=== PATIENT | female | born 1965 | race Caucasian/White ===

== ENCOUNTER 2018-12-15 12:57 | Emergency (ER) | payer OTHER ==
[2018-12-15 13:03] VITALS: RESP 18
--- NOTE | 2018-12-15 13:19 | ED ---
Extremity Problem HPI - General Chief complaint: Extremity Problem,Nontraumatic Stated complaint: Leg pain Time Seen by Provider: 12/15/18 13:05 Source: patient Mode of arrival: ambulatory Limitations: no limitations - History of Present Illness Initial comments: 53-year-old female presenting today for bilateral leg pain. Patient states that since she started a new position and sitting more often than she has had bilateral leg pain. She states that increases with walking. She states she feels like she is sitting too long and this is causing muscle pain when she does walk. She states as a sharp shooting pain from the cast bilaterally to the mid thigh. Patient denies any leg swelling stenting numbness tingling loss sensation or pallor of the extremity. Patient denies diabetes. Patient denies any loss sensation. Patient denies any limitations in range of motion at the hips, knees or ankles--patient denies any recent falls or direct trauma. Patient has any erythema or rashes or lesions. Patient denies fever chills or night sweats. Remaining review of systems negative upon arrival patient appears well no signs acute distress. Patient took Advil prior to arrival for pain management. - Related Data Allergies Allergy/AdvReac Type Severity Reaction Status Date / Time citalopram [From Celexa] Allergy Rash/Hives Verified 12/15/18 13:03 quetiapine [From Seroquel] Allergy Rash/Hives Verified 12/15/18 13:03 Review of Systems ROS Statement: Those systems with pertinent positive or pertinent negative responses have been documented in the HPI. ROS Other: All systems not noted in ROS Statement are negative. Past Medical History Past Medical History: No Reported History History of Any Multi-Drug Resistant Organisms: MRSA Date of last positivie culture/infection: 2017 MDRO Source:: back Past Surgical History: Appendectomy, Section Past Psychological History: Anxiety Smoking Status: Never smoker Past Alcohol Use History: None Reported Past Drug Use History: None Reported General Exam - General Exam Comments Initial Comments: General: The patient is awake and alert, in no distress, and does not appear acutely ill. Eye: Pupils are equal, round and reactive to light, extra-ocular movements are intact. No nystagmus. There is normal conjunctiva bilaterally. No signs of icterus. Ears, nose, mouth and throat: There are moist mucous membranes and no oral lesions. Neck: The neck is supple, there is no tenderness or JVD. Cardiovascular: There is a regular rate and rhythm. No murmur, rub or gallop is appreciated. Respiratory: Lungs are clear to auscultation, respirations are non-labored, breath sounds are equal. No wheezes, stridor, rales, or rhonchi. Gastrointestinal: Soft, non-distended, non-tender abdomen without masses or organomegaly noted. There is no rebound or guarding present. No CVA tenderness. Bowel sounds are unremarkable. Musculoskeletal: Normal ROM, no tenderness hips and knees ankles bilaterally. Strength 5/5. Sensation intact of the lower extremities equal comparison bilaterally. DP pulses equal bilaterally 2+. No lower extremity edema. Neurological: A&O x 3. CN II-XII intact, There are no obvious motor or sensory deficits. Coordination appears grossly intact. Speech is normal. Skin: Skin is warm and dry and no rashes or lesions are noted. She has some tenderness to palpation of the posterior calf bilaterally. (-) Homans. Psychiatric: Cooperative, appropriate mood & affect, normal judgment. Limitations: no limitations Course Vital Signs 12/15/18 13:00 Temperature 98.3 F Pulse Rate 78 Respiratory 18 Rate Blood Pressure 155/85 O2 Sat by Pulse 99 Oximetry Medical Decision Making - Medical Decision Making 53-year-old female presenting for bilateral leg pain from the cast the thighs posteriorly. There is no evidence of swelling. Negative Homans. Patient does have some tenderness along the calf. There is no evidence of masses. There is no skin abnormalities. No limitations of the joints. Patient denies any trauma. Patient denies history of DVT. Patient denies history of cancer. Patient states she has been sitting more unusual and she states the pain occurs when she is active. At this time it seems as though pain is muscular related however ultrasounds were obtained to rule out DVT. Ultrasounds were negative for deep venous thrombosis. Did recommend patient follow-up with her primary care provider she develops any lower extremity swelling or pain persists she may repeat ultrasound in 2 weeks. Patient is to continue Advil and Tylenol outpatient for pain management. Patient is agreeable care plan discharge this time. I discussed the case attending provider Dr. Garcia prior to discharge, agreeable with plan. Disposition Clinical Impression: Bilateral leg pain Disposition: HOME SELF-CARE Condition: Good Instructions (If sedation given, give patient instructions): Leg Pain (ED) Additional Instructions: Please use medication as discussed. Please follow-up with family doctor in the next 2 days.. Please return to emergency room if the symptoms increase or worsen or for any other concerns. Is patient prescribed a controlled substance at d/c from ED?: No Referrals: Oh Mchugh DO [Primary Care Provider] - 1-2 days Time of Disposition: 14:39
--- NOTE | 2018-12-15 14:19 | US ---
EXAMINATION TYPE: US venous doppler duplex LE DATE OF EXAM: 12/15/2018 1:36 PM COMPARISON: NONE CLINICAL HISTORY: Pain. SIDE PERFORMED: Bilateral TECHNIQUE: The lower extremity deep venous system is examined utilizing real time linear array sonog carlos with graded compression, doppler sonography and color-flow sonography. VESSELS IMAGED: External Iliac Vein (EIV) Common Femoral Vein Deep Femoral Vein Greater Saphenous Vein * Femoral Vein Popliteal Vein Small Saphenous Vein * Proximal Calf Veins (* superficial vessels) Grayscale, color doppler, spectral doppler imaging performed of the deep veins of the lower extremiti es. There is normal flow, compressibility, vascular waveforms. Right Leg: Negative for DVT Left Leg: Negative for DVT IMPRESSION: No deep venous thrombosis is seen within either bilateral lower extremity.
[2018-12-15 14:59] VITALS: BP 133/79; PULSE 73; TEMP 98.2
== END 2018-12-15 14:57 | disposition home or self-care (01) ==
LOC: EC 12:57
DX: M79.604 Pain in right leg (principal); M79.605 Pain in left leg; M79.651 Pain in right thigh; M79.652 Pain in left thigh; Z88.8 Allergy status to other drugs, medicaments and biological substances; Z86.14 Personal history of Methicillin resistant Staphylococcus aureus infection
CPT/HCPCS: 93970; 99283

== ENCOUNTER → 2019-03-15 | Outpatient (CLI) | payer OTHER ==
--- NOTE | 2019-03-15 18:10 | MR ---
EXAMINATION TYPE: MR lumbar spine wo con DATE OF EXAM: 03/15/2019 COMPARISON: None HISTORY: Low back pain TECHNIQUE: Multiplanar, multisequence images of the lumbar spine were acquired. L1-L2: Minimal posterior broad-based disc bulge causes minimal anterior mass effect on the thecal sac . No significant central stenosis or foraminal encroachment. L2-L3: Normal disc appearance without desiccation. No herniation, protrusion or disc bulging. No ca nal stenosis is present. Foramina are patent bilaterally. L3-L4: There is facet arthropathy with hypertrophy ligamentum flavum causing some posterior lateral m ass effect on the thecal sac. No significant foraminal encroachment or disc herniation, no central st enosis. L4-L5: Hypertrophic changes of the facets causes posterior lateral mass effect on the thecal sac, thi s results in a trefoil appearance of the thecal sac, there is associated circumferential disc bulge c ausing minimal anterior mass effect on the thecal sac, circumferential extension of disc as well as l isthesis contributes to cause some foraminal encroachment. L5-S1: Posterior broad-based disc bulge contacts anterior thecal sac and possibly the proximal S1 ner ve roots. No significant foraminal encroachment or central stenosis. Facet arthropathy changes presen t. Lumbar segments are intact. No paraspinal masses are identified. Conus medullaris has a normal appe arance. Minimal anterolisthesis grade 1 L4-5. Loss of disc height signal at intervertebral levels johana ecially L4-5, L1-2 with associated endplate spondylosis, endplate marrow signal changes present. Mild spinal curvature. IMPRESSION: Multilevel facet arthropathy. Mild central stenosis noted at L4-5 as described.
== END | disposition home or self-care (01) ==
LOC: RADMRIMAIN 17:01
PROVIDERS: ATTEND Family Medicine
DX: M48.061 Spinal stenosis, lumbar region without neurogenic claudication (principal); M46.96 Unspecified inflammatory spondylopathy, lumbar region
CPT/HCPCS: 72148

== ENCOUNTER → 2020-01-09 | Outpatient (CLI) | payer OTHER ==
[2020-01-09 12:40] LABS: Appearance,Urine Clear (Clear); Bilirubin,Urine Negative (Negative); Blood,Urine Negative (Negative); Color,Urine Yellow; Glucose,Urine (UA) Negative (Negative); Ketones,Urine Negative (Negative); Leukocyte Esterase,Urine Small (Negative); Mucus,Urine Rare /hpf; Nitrite,Urine Negative (Negative); Protein,Urine Negative (Negative); RBC,Urine 1 /hpf (0-5); Specific Gravity,Urine 1.013 (1.001-1.035); Squamous Epithelial Cell,Urine 1 /hpf (0-4); Urobilinogen,Urine <2.0 mg/dL (<2.0); WBC,Urine 1 /hpf (0-5)
[2020-01-09 12:48] LABS: Basophils % (A) 0 %; Eosinophils # (A) 0.2 k/uL (0-0.7); Eosinophils % (A) 2 %; HGB 14.7 gm/dL (11.4-16.0); Lymphocytes # (A) 1.8 k/uL (1.0-4.8); Lymphocytes % (A) 20 %; MCH 29.1 pg (25.0-35.0); MCHC 31.9 g/dL (31.0-37.0); MCV 91.2 fL (80.0-100.0); Mean Platelet Volume 7.1; Monocytes # (A) 0.5 k/uL (0-1.0); Monocytes % (A) 5 %; Neutrophils # (A) 6.6 k/uL (1.3-7.7); Neutrophils % (A) 71 %; Platelet Count 214 k/uL (150-450); RBC 5.04 m/uL (3.80-5.40); RDW 12.4 % (11.5-15.5); WBC 9.3 k/uL (3.8-10.6)
[2020-01-09 14:47] LABS: Erythrocyte Sedimentation Rate 4 mm/hr (0-20)
[2020-01-09 20:05] LABS: Streptolysin O Ab(ASO) 124 IU/mL (0-200)
[2020-01-09 20:10] LABS: Protein, Total 6.3 g/dL (6.2-8.2)
[2020-01-09 21:24] LABS: ALT 44 U/L (8-44); AST 41 U/L (13-35); African American GFR (CKD) 73.4 (60.0-200.0); Albumin/Globulin Ratio 1.91 (1.60-3.17); Alkaline Phosphatase 80 U/L (41-126); C Reactive Protein 0.5 mg/dL (0.0-0.8); Calcium 9.4 mg/dL (8.7-10.3); Carbon Dioxide 30.3 mmol/L (21.6-31.8); Chloride 108 mmol/L (96-109); Creatine Kinase 472 U/L (26-186); Globulin 2.2 g/dL (1.6-3.3); Glucose 92 mg/dL (70-110); LDH 302 U/L (120-246); Non-African American GFR(CKD) 63.4 (60.0-200.0); Phosphorus 3.8 mg/dL (2.4-5.1); Potassium 4.3 mmol/L (3.5-5.5); Rheumatoid Factor, Qnt 10 IU/mL (0-15); Sodium 143 mmol/L (135-145); Total Bilirubin 0.6 mg/dL (0.3-1.2); Total Protein 6.4 g/dL (6.2-8.2)
[2020-01-09 21:34] LABS: Hemoglobin A1C 5.8 % (4.0-6.0)
[2020-01-09 23:31] LABS: Cyclic Citrull Pep IgG Unit 0.8 U/mL; Cyclic Citrullinated Pep IgG NEGATIVE (NEGATIVE)
[2020-01-10 09:55] LABS: Angiotensin-1 Converting Enz. 33 U/L (8-52)
[2020-01-10 12:11] LABS: HLA B27 NEGATIVE
[2020-01-10 12:51] LABS: Albumin 3.75 g/dL (3.80-4.90)
[2020-01-10 13:51] LABS: Vitamin D, 1, 25-Dihydroxy 43 pg/mL (20 - 79)
[2020-01-13 11:30] LABS: Vit B1(Thiamine) 66 ug/L (38-122)
== END | disposition home or self-care (01) ==
LOC: LABWHC1 11:56
PROVIDERS: ATTEND Physical Medicine & Rehabilitation
DX: M51.26 Other intervertebral disc displacement, lumbar region (principal); M43.16 Spondylolisthesis, lumbar region; M47.816 Spondylosis without myelopathy or radiculopathy, lumbar region; M51.36 Other intervertebral disc degeneration, lumbar region; M62.830 Muscle spasm of back; R20.2 Paresthesia of skin
CPT/HCPCS: 36415; 80053; 81001; 82164; 82306; 82310; 82550; 82553; 82607; 82652; 83036; 83516; 83520; 83615; 83970; 84100; 84165; 84207; 84425; 84439; 84443; 84550; 85025; 85652; 86038; 86060; 86140; 86200; 86235; 86431; 86618; 86812; 87522

== ENCOUNTER → 2020-08-08 | Outpatient (CLI) | payer OTHER ==
--- NOTE | 2020-08-08 10:59 | MR ---
EXAMINATION TYPE: MRI brain without contrast DATE OF EXAM: 08/08/2020 COMPARISON: None HISTORY: BL Numbness and weakness TECHNIQUE: Multiplanar, multisequence images of the brain and brainstem is performed without contrast. FINDINGS: Diffusion weighted images demonstrate no evidence of a recent infarct or other diffusion ab normality. There is no extra-axial fluid collection or significant white matter signal abnormality. The ventricular system and cisternal spaces are normal in size and appearance. The brain volume is age appropriate. Midline structures demonstrate normal morphology. The craniocervical junction appears within normal limits. Post contrast images demonstrate no abnormal enhancement. The dural venous sinuses appear pa tent. The visualized sinuses are clear and the globes are intact. IMPRESSION: No significant abnormality seen.
== END | disposition home or self-care (01) ==
LOC: RADMRIMAIN 09:12
PROVIDERS: ATTEND Family Medicine
DX: R53.1 Weakness (principal); R20.2 Paresthesia of skin
CPT/HCPCS: 70553; A9585

== ENCOUNTER 2020-11-16 02:44 | Emergency (ER) | payer OTHER ==
--- NOTE | 2020-11-16 03:15 | ED ---
Extremity Problem HPI - General Chief complaint: Extremity Problem,Nontraumatic Stated complaint: RT arm pain Time Seen by Provider: 11/16/20 03:02 Source: patient Mode of arrival: ambulatory Limitations: no limitations - History of Present Illness MD Complaint: joint pain Onset/Timin -: hour(s) Location: right, upper extremity (Shoulder) History of Same: No -: Yes myalgia, Yes arthralgia Radiation: none Quality: aching Consistency: constant Improves with: nothing Worsens with: other (Movement) Associated Symptoms: denies other symptoms - Related Data Home Medications Medication Instructions Recorded Confirmed DULoxetine HCL [Cymbalta] 30 mg PO HS 11/16/20 11/16/20 Diclofenac Sodium [Voltaren] 25 mg PO BID 11/16/20 11/16/20 Pregabalin [Lyrica] 75 mg PO BID 11/16/20 11/16/20 Previous Rx's Medication Instructions Recorded HYDROcodone/APAP 5-325MG [[place] 1 tab PO Q4HR PRN 3 Days #18 tab 11/16/20 5-325] Allergies Allergy/AdvReac Type Severity Reaction Status Date / Time citalopram [From Celexa] Allergy Rash/Hives Verified 12/15/18 13:03 quetiapine [From Seroquel] Allergy Rash/Hives Verified 12/15/18 13:03 Sulfa (Sulfonamide Allergy Rash/Hives Verified 11/16/20 02:52 Antibiotics) Review of Systems ROS Statement: Those systems with pertinent positive or pertinent negative responses have been documented in the HPI. ROS Other: All systems not noted in ROS Statement are negative. Constitutional: Denies: fever, chills Respiratory: Denies: cough, dyspnea Cardiovascular: Denies: chest pain, palpitations Gastrointestinal: Denies: abdominal pain, nausea, vomiting Musculoskeletal: Reports: as per HPI, arthralgia. Denies: back pain Skin: Denies: rash Neurological: Denies: weakness, numbness, paresthesias Past Medical History Past Medical History: No Reported History Additional Past Medical History / Comment(s): lower back pain, bulging disc to back History of Any Multi-Drug Resistant Organisms: MRSA Date of last positivie culture/infection: 2017 MDRO Source:: back Past Surgical History: Appendectomy, Section Past Psychological History: Anxiety Smoking Status: Never smoker Past Alcohol Use History: None Reported Past Drug Use History: None Reported General Exam Limitations: no limitations General appearance: alert, in no apparent distress Head exam: Present: atraumatic, normocephalic Eye exam: Present: normal appearance Neck exam: Present: normal inspection, full ROM. Absent: tenderness, meningismus Cardiovascular Exam: Present: other (Right radial and ulnar pulses are normal in strength. Normal capillary refill) Extremities exam: Present: normal inspection Right Shoulder Exam: Present: tenderness. Absent: full ROM, swelling, abrasion, laceration, ecchymosis, deformity, crepitus, dislocation, erythema Upper Arm exam: Present: normal inspection, full ROM. Absent: tenderness, swelling Elbow exam: Present: normal inspection, full ROM. Absent: tenderness, swelling Forearm Wrist exam: Present: normal inspection, full ROM. Absent: tenderness, swelling Hand Wrist exam: Present: normal inspection, full ROM. Absent: tenderness, swelling Neuro motor exam: Present: wrist extension intact, thumb opposition intact, thumb IP flexion intact, thumb adduction intact, fingers 2-5 abduction intact Neurosensory exam: Present: 2-point discrimination, radial nerve intact, ulnar nerve intact, median nerve intact Vascular: Present: normal capillary refill. Absent: vascular compromise, pulse deficit radial art, pulse deficit ulnar art Back exam: Present: normal inspection. Absent: paraspinal tenderness, vertebral tenderness Neurological exam: Present: alert. Absent: motor sensory deficit Skin exam: Present: warm, dry, intact, normal color. Absent: rash Course Vital Signs 11/16/20 02:47 Temperature 97.7 F Pulse Rate 91 Respiratory 18 Rate Blood Pressure 152/100 O2 Sat by Pulse 98 Oximetry Disposition Clinical Impression: Shoulder pain Disposition: HOME SELF-CARE Condition: Good Instructions (If sedation given, give patient instructions): Shoulder Pain (ED) Prescriptions: HYDROcodone/APAP 5-325MG [[place] 5-325] 1 tab PO Q4HR PRN 3 Days #18 tab PRN Reason: Pain Is patient prescribed a controlled substance at d/c from ED?: Yes When asked, does pt state using other controlled substances?: No If prescribed controlled substance>3 days was MAPS reviewed?: Prescribed <3 Days If opioid is for acute pain is fill amount 7 days or less?: Yes If Rx opioid, was Start Talking consent form obtained?: Yes Referrals: Oh Mchugh DO [Primary Care Provider] - 1-2 days Donnie Gaines MD [STAFF PHYSICIAN] - 1-2 days
--- NOTE | 2020-11-16 03:46 | XR ---
EXAM: XR Right Shoulder Complete, 2 or More Views CLINICAL HISTORY: Right shoulder pain. TECHNIQUE: Two or more views of the right shoulder. COMPARISON: No previous studies. FINDINGS: Bones/joints: Mild hypertrophic changes right acromial clavicular joint. Moderate osteoarthritic changes about the right shoulder joint. Regional ribs and soft tissues are unremarkable. Scapula is unremarkable. No acute fracture. No dislocation. Soft tissues: Linear calcification near the insertion point of the rotator cuff tendon. IMPRESSION: 1. Osteoarthritic and degenerative changes. 2. Findings suggestive of possible calcific tendinopathy of the rotator cuff tendon. 3. Magnetic resonance imaging of the right shoulder joint is suggested for further assessment of the rotator cuff tendon.
[2020-11-16] MEDS ORDERED: IBUPROFEN 400 MG TAB PO STA (04:12)
[2020-11-16] MEDS ORDERED: HYDROcodone/APAP 5-325MG 1 EACH TAB PO STA (04:12)
[2020-11-16 05:35] VITALS: BP 148/88; PULSE 78; RESP 15; TEMP 97.8
== END 2020-11-16 05:30 | disposition home or self-care (01) ==
LOC: EC 02:44
DX: M25.511 Pain in right shoulder (principal); F41.9 Anxiety disorder, unspecified; Z90.49 Acquired absence of other specified parts of digestive tract
CPT/HCPCS: 99283

== ENCOUNTER 2021-03-17 15:31 | Observation (INO) | payer OTHER ==
--- NOTE | 2021-03-17 16:26 | ED ---
Extremity Problem HPI - General Chief complaint: Extremity Problem,Nontraumatic Stated complaint: legs went numb Time Seen by Provider: 03/17/21 16:25 Source: patient Mode of arrival: wheelchair Limitations: no limitations - History of Present Illness Initial comments: Maria D is a 56 her old female with a history of chronic back pain who has followed with her primary care and been evaluated in the past with CT scans and MRIs. Patient reports that today she is caring for grandchildren. She attempted to move a cinder block, she didn't hear any popping or cracking or legs but after doing that she had worsening pain in her back and radiation down both legs. Patient reports her legs feel somewhat numb but are also painful. She states that she can't walk secondary to the pain. This is worse than her baseline pain in his acute nature. She has no saddle paresthesias, she's not had any urinary or bowel incontinence or attention. She does feel that she needs urinary now but was holding a because she is in the exam room. - Related Data Home Medications Medication Instructions Recorded Confirmed DULoxetine HCL [Cymbalta] 30 mg PO HS 11/16/20 11/16/20 Diclofenac Sodium [Voltaren] 25 mg PO BID 11/16/20 11/16/20 Pregabalin [Lyrica] 75 mg PO BID 11/16/20 11/16/20 Previous Rx's Medication Instructions Recorded HYDROcodone/APAP 5-325MG [[place] 1 tab PO Q4HR PRN 3 Days #18 tab 11/16/20 5-325] Allergies Allergy/AdvReac Type Severity Reaction Status Date / Time citalopram [From Celexa] Allergy Rash/Hives Verified 03/17/21 16:00 gabapentin [From Neurontin] Allergy Rash/Hives Verified 03/17/21 16:00 quetiapine [From Seroquel] Allergy Rash/Hives Verified 03/17/21 16:00 Sulfa (Sulfonamide Allergy Rash/Hives Verified 03/17/21 16:00 Antibiotics) Review of Systems ROS Statement: Those systems with pertinent positive or pertinent negative responses have been documented in the HPI. ROS Other: All systems not noted in ROS Statement are negative. Past Medical History Past Medical History: No Reported History Additional Past Medical History / Comment(s): lower back pain, bulging disc to back History of Any Multi-Drug Resistant Organisms: MRSA Date of last positivie culture/infection: 2017 MDRO Source:: back Past Surgical History: Appendectomy, Section Past Psychological History: Anxiety Smoking Status: Never smoker Past Alcohol Use History: None Reported Past Drug Use History: None Reported General Exam - General Exam Comments Initial Comments: Physical Exam GENERAL: Patient is well-developed and well-nourished. Patient is nontoxic and well- hydrated and is in no distress. HENT: Normocephalic, Atraumatic. EYES: PERRL, EOMI PULMONARY: Unlabored respirations. No audible rales rhonchi or wheezing was noted. CARDIOVASCULAR: There is a regular rate and rhythm without any murmurs gallops or rubs. ABDOMEN: Soft and nontender with normal bowel sounds. SKIN: Skin is clear with no lesions or rashes and otherwise unremarkable. : Normal rectal tone NEUROLOGIC: Patient is alert and oriented x3. Reports paresthesias in bilateral lower extremities MUSCULOSKELETAL: Ankles are plantar flexed, patient will not move them secondary to pain PSYCHIATRIC: Normal psychiatric evaluation. Limitations: no limitations Course Vital Signs 03/17/21 03/17/21 15:57 21:22 Temperature 98.8 F Pulse Rate 83 77 Respiratory 17 16 Rate Blood Pressure 123/83 140/96 O2 Sat by Pulse 97 96 Oximetry Medical Decision Making - Medical Decision Making The patient was seen and evaluated history is obtained from patient and labs and CT were obtained, patient received morphine had mild improvement in her discomfort Patient care was discussed with Dr. Church who recommended steroids and placed patient in observation with consult to pain management Patient was agreeable to this plan and was admitted - Lab Data Result diagrams: 03/17/21 17:26 03/17/21 17:26 Lab Results 03/17/21 03/17/21 Range/Units 17:26 17:26 WBC 9.6 (3.8-10.6) k/uL RBC 4.78 (3.80-5.40) m/uL Hgb 14.9 (11.4-16.0) gm/dL Hct 44.0 (34.0-46.0) % MCV 91.9 (80.0-100.0) fL MCH 31.2 (25.0-35.0) pg MCHC 34.0 (31.0-37.0) g/dL RDW 13.1 (11.5-15.5) % Plt Count 249 (150-450) k/uL MPV 7.1 Neutrophils % 64 % Lymphocytes % 22 % Monocytes % 8 % Eosinophils % 3 % Basophils % 1 % Neutrophils # 6.1 (1.3-7.7) k/uL Lymphocytes # 2.1 (1.0-4.8) k/uL Monocytes # 0.7 (0-1.0) k/uL Eosinophils # 0.3 (0-0.7) k/uL Basophils # 0.1 (0-0.2) k/uL Sodium 139 (137-145) mmol/L Potassium 5.0 (3.5-5.1) mmol/L Chloride 109 H (98-107) mmol/L Carbon Dioxide 20 L (22-30) mmol/L Anion Gap 10 mmol/L BUN 15 (7-17) mg/dL Creatinine 0.78 (0.52-1.04) mg/dL Est GFR (CKD-EPI)AfAm >90 (>60 ml/min/1.73 sqM) Est GFR (CKD-EPI)NonAf 86 (>60 ml/min/1.73 sqM) Glucose 87 (74-99) mg/dL Calcium 9.5 (8.4-10.2) mg/dL Magnesium 2.1 (1.6-2.3) mg/dL Total Bilirubin 0.7 (0.2-1.3) mg/dL AST 37 H (14-36) U/L ALT 32 (4-34) U/L Alkaline Phosphatase 77 (38-126) U/L Creatine Kinase 71 (30-135) U/L Total Protein 6.9 (6.3-8.2) g/dL Albumin 4.1 (3.5-5.0) g/dL Disposition Clinical Impression: Back pain at L4-L5 level, Bilateral leg paresthesia Disposition: ADMITTED IP TO THIS HOSP Condition: Stable Is patient prescribed a controlled substance at d/c from ED?: No
[2021-03-17] MEDS ORDERED: MORPHINE SULFATE 4 MG/ML SYRINGE IVP STA (17:00)
[2021-03-17] MEDS: SODIUM CHLORIDE 0.9% 1,000 ML IV SCH (17:28)
[2021-03-17 17:58] LABS: ALT 32 U/L (4-34); AST 37 U/L (14-36); African American GFR (CKD) >90 (>60 ml/min/1.73 sqM); Albumin 4.1 g/dL (3.5-5.0); Alkaline Phosphatase 77 U/L (38-126); Anion Gap 10 mmol/L; Blood Urea Nitrogen 15 mg/dL (7-17); Calcium 9.5 mg/dL (8.4-10.2); Carbon Dioxide 20 mmol/L (22-30); Chloride 109 mmol/L (98-107); Creatine Kinase 71 U/L (30-135); Glucose 87 mg/dL (74-99); Magnesium 2.1 mg/dL (1.6-2.3); Non-African American GFR(CKD) 86 (>60 ml/min/1.73 sqM); Sodium 139 mmol/L (137-145); Total Bilirubin 0.7 mg/dL (0.2-1.3); Total Protein 6.9 g/dL (6.3-8.2)
--- NOTE | 2021-03-17 18:05 | CT ---
EXAMINATION TYPE: CT lumbar spine wo con DATE OF EXAM: 03/17/2021 COMPARISON: None HISTORY: Back pain radiating to both legs. CT DLP: 1177.6 mGycm Automated exposure control for dose reduction was used. Images obtained from T12 to S3 vertebra with no contrast. There is a few millimeter anterior subluxation of L4 in relation L5. There is no spondylolysis. There is no lumbar compression fracture. Disc spaces are fairly normal. I see no focal bone destruction. T here is no lumbar paraspinal mass. There is posterior central disc bulging at L5-S1. There is moderate spinal stenosis at L4-5 due to th e subluxation deformity and ligamentum flavum thickening and facet arthropathy. No significant stenos is seen in the upper and mid lumbar spine. The sacroiliac joints are intact. IMPRESSION: Degenerative first-degree L4-5 spondylolisthesis with moderate L4-5 spinal stenosis. No fracture seen .
[2021-03-17 18:21] LABS: Basophils # (A) 0.1 k/uL (0-0.2); Basophils % (A) 1 %; Eosinophils # (A) 0.3 k/uL (0-0.7); Eosinophils % (A) 3 %; HGB 14.9 gm/dL (11.4-16.0); Lymphocytes # (A) 2.1 k/uL (1.0-4.8); Lymphocytes % (A) 22 %; MCH 31.2 pg (25.0-35.0); MCV 91.9 fL (80.0-100.0); Mean Platelet Volume 7.1; Monocytes # (A) 0.7 k/uL (0-1.0); Monocytes % (A) 8 %; Neutrophils # (A) 6.1 k/uL (1.3-7.7); Neutrophils % (A) 64 %; Platelet Count 249 k/uL (150-450); RBC 4.78 m/uL (3.80-5.40); RDW 13.1 % (11.5-15.5); WBC 9.6 k/uL (3.8-10.6)
[2021-03-17] MEDS ORDERED: HYDROCORTISONE SUCCINATE 100 MG/2 ML VIAL IV STA (19:39)
[2021-03-17] MEDS ORDERED: NALOXONE 0.4 MG/ML 1 ML VIAL IV PRN (19:40)
[2021-03-17] MEDS ORDERED: ONDANSETRON 4 MG/2 ML VIAL IVP PRN (19:40)
[2021-03-17 21:25] VITALS: RESP 16
[2021-03-17] MEDS: MORPHINE SULFATE 4 MG/ML SYRINGE IV PRN (21:27)
[2021-03-18] MEDS: MORPHINE SULFATE 4 MG/ML SYRINGE IV PRN ×3 (02:08→12:29)
[2021-03-18] MEDS: SODIUM CHLORIDE 0.9% 1,000 ML IV SCH (07:26)
[2021-03-18] MEDS: PANTOPRAZOLE 40 MG TABLET PO SCH (08:39)
[2021-03-18] MEDS: AMOXICILLIN 500 MG CAP PO SCH ×3 (08:39→22:08)
[2021-03-18] MEDS: lisinopriL 10 MG TAB PO SCH (08:39)
[2021-03-18] MEDS: PREGABALIN 75 MG CAP PO SCH ×3 (08:39→22:01)
[2021-03-18] MEDS ORDERED: ETODOLAC 400 MG TAB PO SCH (09:00)
--- NOTE | 2021-03-18 10:50 | P.HPOR ---
History of Present Illness H&P Date: 03/18/21 Chief Complaint: Low back pain with lower extremity radiculopathy bilaterally Patient is a pleasant 54-year-old female who presented to the emergency room with worsening low back pain and lower extremity radicular symptoms. Patient had been seen outpatient and was found have a listhesis at L4 5 with lower extremity radiculopathy. She Been scheduled for continued management and interventional pain management for her lumbar spine Dr. Gonzalez. She says she was not able to go through that yet because she has an issue with her tooth and was planning on having her teeth pu lled. That has not yet been resolved. The patient is primary complaints are back pain and lower extremity pain down both legs down the back of her legs. She says she has great difficulty moving in bed and trying to raise and lower and use her legs. She has great difficulty with trying to ambulate because of pain. She denies chest pain or shortness of breath. Denies abdominal pain. She says that last night she was unable to urinate because she couldn't get out of bed. She tried while in bed on a bedpan but she says that she was unable ago while laying down. She thinks she might be able to go if she is able have helped sitting up onto a toilet or commode. She says she feels weak in her bilateral lower extremities but with prompting she is able to move her legs with pain at her back. Review of Systems Denies chest pain shortness breath. She says she was unable to urinate overnight while lying flat in bed but feels she may be able to do so when she sits up if she can have help with sitting up. She says she feels weeks with her bilateral lower extremities and she says that she is unable to move them but on exam she will remove them and she will bend and flex her knees but has pain in her back with doing so Past Medical History Past Medical History: No Reported History, Musculoskeletal Disorder Additional Past Medical History / Comment(s): Spondylolisthesis L4 5 lower back pain, bulging disc to back History of Any Multi-Drug Resistant Organisms: MRSA Date of last positivie culture/infection: 2017 MDRO Source:: back Past Surgical History: Appendectomy, Section Past Anesthesia/Blood Transfusion Reactions: No Reported Reaction Past Psychological History: Anxiety Smoking Status: Never smoker Past Alcohol Use History: None Reported Past Drug Use History: None Reported Medications and Allergies Home Medications Medication Instructions Recorded Confirmed Type Amoxicillin 500 mg PO TID 03/17/21 03/17/21 History DULoxetine HCL [Cymbalta] 60 mg PO HS 03/17/21 03/17/21 History Diclofenac Sodium [Voltaren] 75 mg PO BID 03/17/21 03/17/21 History Omeprazole 20 mg PO DAILY 03/17/21 03/17/21 History Pregabalin [Lyrica] 150 mg PO TID 03/17/21 03/17/21 History lisinopriL 10 mg PO DAILY 03/17/21 03/17/21 History Cyclobenzaprine [Flexeril] 10 mg PO TID PRN #60 tab 03/18/21 Rx HYDROcodone/APAP 5-325MG [[place] 5] 1 each PO Q6HR PRN #28 tab 03/18/21 Rx predniSONE 10 mg PO DIRECTED #24 tab 03/18/21 Rx Allergies Allergy/AdvReac Type Severity Reaction Status Date / Time citalopram [From Celexa] Allergy Rash/Hives Verified 03/17/21 22:13 gabapentin [From Neurontin] Allergy Rash/Hives Verified 03/17/21 22:13 quetiapine [From Seroquel] Allergy Rash/Hives Verified 03/17/21 22:13 Sulfa (Sulfonamide Allergy Rash/Hives Verified 03/17/21 22:13 Antibiotics) Physical Examination Osteopathic Statement: *. No significant issues noted on an osteopathic structural exam other than those noted in the History and Physical/Consult. - L Spine: dermatomal strength & reflexes bilateral Strength: hip flexion: 5/5 (She actually has good strength but is very short- lived with hip flexion and extension dorsal flexion plantarflexion. She will only do this for a moment as she has significant pain in her lower back. At first she says that she cannot move but then she is able to do so with prompting. She does not) Strength: hip extension: 5/5 (She does not have pain with internal/external rotation of her hips. She has difficulty lifting her legs up off the bed due to pain in her back. But she is able to do so. Her compartments are soft. Pulses are intact. Sensory is intact throughout. No saddle paresthesias. Good rectal tone per ER) Results - Labs Labs: Abnormal Lab Results - Last 24 Hours (Table) 03/17/21 Range/Units 17:26 Chloride 109 H (98-107) mmol/L Carbon Dioxide 20 L (22-30) mmol/L AST 37 H (14-36) U/L H & H 03/17/21 Range/Units 17:26 Hgb 14.9 (11.4-16.0) gm/dL Hct 44.0 (34.0-46.0) % Result Diagrams: 03/17/21 17:26 03/17/21 17:26 - Diagnostic results CT Scan - lumbar: report reviewed (Lumbar CT scans reviewed shows a grade 1 degenerative listhesis at L4 5. There is disc degeneration L4 5 with some evidence of stenosis at that level. There is no evidence of fracture. There is no bony erosion.), image reviewed Assessment and Plan Assessment: Spondylolisthesis L4 5 Low back pain, intractable with inability to ambulate on her own. Bilateral lower extremity radiculopathy Urinary retention overnight Spinal stenosis L4 5 Plan: Spondylolisthesis L4 5 Low back pain, intractable with inability to ambulate on her own. Bilateral lower extremity radiculopathy Urinary retention overnight Spinal stenosis L4 5 The patient has acute on chronic low back pain which seems syndrome her listhesis at L4 5. She does have some stenosis that level. She is having significant pain in her lower extremities but she does have able to mobilize with prompting and have good strength with prompting. She does not have several paresthesias but she did have urinary retention overnight. His may be positional as she was laying flat in bed and she was unable to sit up due to her pain. She has a Woodard intact I would like to have it discontinued to see if she is able to void on her own if she cannot help up to a commode or toilet. She would like to try that. I think that is reasonable. However with this I think that getting further imaging with MRI is worthwhile to determine the level of stenosis at her lumbar spine. We have ordered this for her. I would like her to try to mobilize with physical therapy and that is ordered for her mobility. We will order a bedside commode to try to help with urinat ing. We will have her on a steroid course and have interventional pain management see her as well. She could potentially do well with a epidural steroid injection done here in the hospital if pain management feels it is appropriate. She has good motion at her legs and feet and does not have several paresthesias. She does not seem to have an urgent surgical necessity we'll continue to follow her closely and see how she does with imaging and continued aggressive conservative management.
--- NOTE | 2021-03-18 14:33 | MR ---
EXAMINATION TYPE: MR lumbar spine wo con DATE OF EXAM: 03/18/2021 2:17 PM COMPARISON: 03/15/2019 HISTORY: Lower back pain Multiplanar, MultiSpin echo imaging of the lumbar spine was performed. L1-L2: Normal disc appearance without desiccation. No herniation, protrusion or disc bulging. No ca nal stenosis is present. Foramina are patent bilaterally. L2-L3: Normal disc appearance without desiccation. No herniation, protrusion or disc bulging. No ca nal stenosis is present. Foramina are patent bilaterally. L3-L4: Normal disc appearance without desiccation. No herniation, protrusion or disc bulging. No ca nal stenosis is present. Foramina are patent bilaterally. L4-L5: Mild to moderate decreased signal and loss of height at this level compatible with degenerativ e disc disease. Circumferential disc bulge greatest posteriorly with effacement of the ventral thecal sac. Hypertrophy of the ligamentum flavum and mild facet joint arthropathy result in the mild to mod erate central stenosis at this level which has progressed mildly since prior examination. L5-S1: Mild disc desiccation noted. Posterocentral disc protrusion has progressed since prior study. Effacement ventral thecal sac. No evidence for central stenosis or lateral recess stenosis. Foramina are patent bilaterally. Lumbar segments are intact. No paraspinal masses are identified. Conus medullaris has a normal appe arance. IMPRESSION: 1. Degenerative disc disease as discussed above. 2. Slightly progressive central stenosis at L4-5.
[2021-03-18] MEDS ORDERED: DULoxetine HCL 60 MG CAPSULE.DR PO SCH (21:00)
[2021-03-18] MEDS: methylPREDNISolone SOD SUCCI 125 MG/2 ML VIAL IV SCH (22:01)
[2021-03-18] MEDS: ACETAMINOPHEN TAB 325 MG TAB PO PRN (22:01)
[2021-03-19] MEDS: SODIUM CHLORIDE 0.9% 1,000 ML IV SCH (02:35)
[2021-03-19] MEDS: ACETAMINOPHEN TAB 325 MG TAB PO PRN ×2 (04:15→09:23)
--- NOTE | 2021-03-19 09:09 | P.DS ---
Providers Date of admission: 03/17/21 19:41 Expected date of discharge: 03/19/21 Attending physician: Brian Church Consults: 03/17/21 19:40 Consult Physician Urgent Consulting Provider: Gomez Collins Consult Reason/Comments: pain management,for lumbar UGO Do you want consulting provider notified?: Yes Primary care physician: Oh Mchugh - Discharge Diagnosis(es) (1) Lumbar back pain with radiculopathy affecting lower extremity Current Visit: Yes Status: Acute (2) Spinal stenosis at L4-L5 level Current Visit: Yes Status: Acute (3) Spondylolisthesis at L4-L5 level Current Visit: Yes Status: Acute (4) Low back pain Current Visit: Yes Status: Acute Hospital Course: This is a pleasant 56-year-old female who presented with low back pain and bilateral lower extremity radiculopathy. She is known have a spondylolisthesis and spinal stenosis at L4-5. She was having significant difficulty with ambulation and mobility. She is admitted for further treatment evaluation. Since her admission to the hospital she has continued to improve. She did have some difficulty with urination will lying down yesterday. She has been able to urinate without difficulty after increasing her mobility. She is able to ambulate the room with the assistance of a walker. She states she's not currently expressing any significant lower extremity radiculopathy or weakness bilaterally. She does have some ongoing low back pain. Given the improvement of her symptoms, she does feel she is ready for discharge home today. Her symptoms have been well-controlled while receiving steroid medication as well. Prescriptions at the time of discharge have been sent for Ranger 5 mg/325 mg, prednisone 10 mg taper, and cyclobenzaprine 10 mg. She should take his medications as prescribed. She should avoid anti-inflammatory medications while on the prednisone taper. She was initially scheduled to have an injection on 03/23/[address] Gonzalez in pain management. She canceled the scheduled injection as she states she was going to get some work done on her teeth and was planning to have a tooth pulled. She states at this time she would like to follow-up with pain management while here in the hospital to discuss whether she is able to have injections prior to discharge. Consultation was placed with pain management yesterday. If she is unable to have further treatment and evaluation with pain management during her admission to the hospital, she'll plan to contact Dr. Gonzalez following discharge to set up follow-up evaluation. Patient currently denies any nausea, vomiting, fever, or chills. Patient is eating and voiding freely without difficulty. Patient may follow-up with Rubio Merritt PA-C or Dr. Kingston Church at [facility] in 2-3 weeks following discharge. Physical Exam on day of discharge: Patient is awake, alert, and oriented 3 Vital signs stable Good chest excursion with deep inspiration and expiration No signs or symptoms of DVT; no calf pain Extensor hallucis longus, plantarflexion, and dorsiflexion positive sustained bilateral lower extremities Patient is able to move her legs independently in bed without significant difficulty bilaterally Patient is able to roll over in bed without significant difficulty Examination of the lumbar spine shows no evidence of laceration, bruising, erythema, or obvious sign of infection Some mild pain on palpation of the lower lumbar spine at the midline Some evidence of paravertebral spasm Patient Condition at Discharge: Stable Plan - Discharge Summary Discharge Rx Participant: Yes New Discharge Prescriptions: New Cyclobenzaprine [Flexeril] 10 mg PO TID PRN #60 tab PRN Reason: Muscle Spasm predniSONE 10 mg PO DIRECTED #24 tab HYDROcodone/APAP 5-325MG [Ranger 5] 1 each PO Q6HR PRN #28 tab PRN Reason: Pain No Action Amoxicillin 500 mg PO TID Pregabalin [Lyrica] 150 mg PO TID Omeprazole 20 mg PO DAILY lisinopriL 10 mg PO DAILY Diclofenac Sodium [Voltaren] 75 mg PO BID DULoxetine HCL [Cymbalta] 60 mg PO HS Discharge Medication List Amoxicillin 500 mg PO TID 03/17/21 [History] DULoxetine HCL [Cymbalta] 60 mg PO HS 03/17/21 [History] Diclofenac Sodium [Voltaren] 75 mg PO BID 03/17/21 [History] Omeprazole 20 mg PO DAILY 03/17/21 [History] Pregabalin [Lyrica] 150 mg PO TID 03/17/21 [History] lisinopriL 10 mg PO DAILY 03/17/21 [History] Cyclobenzaprine [Flexeril] 10 mg PO TID PRN #60 tab 03/18/21 [Rx] HYDROcodone/APAP 5-325MG [Ranger 5] 1 each PO Q6HR PRN #28 tab 03/18/21 [Rx] predniSONE 10 mg PO DIRECTED #24 tab 03/18/21 [Rx] Follow up Appointment(s)/Referral(s): Oh Mchugh DO [Primary Care Provider] - 1-2 days Brian Church DO [Doctor of Osteopathic Medicine] - 2 Weeks Activity/Diet/Wound Care/Special Instructions: May ambulate as tolerated. Avoid heavy or rigorous activity. No repetitive bending twisting or lifting. No overhead work.
[2021-03-19] MEDS: AMOXICILLIN 500 MG CAP PO SCH (09:18)
[2021-03-19] MEDS: lisinopriL 10 MG TAB PO SCH (09:18)
[2021-03-19] MEDS: PREGABALIN 75 MG CAP PO SCH (09:18)
[2021-03-19] MEDS: methylPREDNISolone SOD SUCCI 125 MG/2 ML VIAL IV SCH (09:19)
[2021-03-19] MEDS: PANTOPRAZOLE 40 MG TABLET PO SCH (09:23)
--- NOTE | 2021-03-19 10:17 | P.PAINCN ---
History of Present Illness - Reason for Consult Consult date: 03/19/21 - History of Present Illness This is a 56 years old female with a chronic history of low back pain intensity of the pain increased over the last few days, she failed outpatient treatment, including her low back pain is intense severe increased with any movement interfere with the quality of life, dated to the posterior aspect of her lower extremity associated with numbness and tingling sensation, he denies any fever or night sweats patient denies any change in the bowel movement or urination, reported that the intensity of the pain is 8/10 and increases with any movement to 10 over 10, Past Medical History Past Medical History: No Reported History, Musculoskeletal Disorder Additional Past Medical History / Comment(s): Spondylolisthesis L4 5 lower back pain, bulging disc to back History of Any Multi-Drug Resistant Organisms: MRSA Year Discovered:: 2018 MDRO Source:: back Past Surgical History: Appendectomy, Section Past Anesthesia/Blood Transfusion Reactions: No Reported Reaction Past Psychological History: Anxiety Smoking Status: Never smoker Past Alcohol Use History: None Reported Past Drug Use History: None Reported Medications and Allergies Home Medications Medication Instructions Recorded Confirmed Type Amoxicillin 500 mg PO TID 03/17/21 03/17/21 History DULoxetine HCL [Cymbalta] 60 mg PO HS 03/17/21 03/17/21 History Diclofenac Sodium [Voltaren] 75 mg PO BID 03/17/21 03/17/21 History Omeprazole 20 mg PO DAILY 03/17/21 03/17/21 History Pregabalin [Lyrica] 150 mg PO TID 03/17/21 03/17/21 History lisinopriL 10 mg PO DAILY 03/17/21 03/17/21 History Cyclobenzaprine [Flexeril] 10 mg PO TID PRN #60 tab 03/18/21 Rx HYDROcodone/APAP 5-325MG [[place] 5] 1 each PO Q6HR PRN #28 tab 03/18/21 Rx predniSONE 10 mg PO DIRECTED #24 tab 03/18/21 Rx Allergies Allergy/AdvReac Type Severity Reaction Status Date / Time citalopram [From Celexa] Allergy Rash/Hives Verified 03/17/21 22:13 gabapentin [From Neurontin] Allergy Rash/Hives Verified 03/17/21 22:13 quetiapine [From Seroquel] Allergy Rash/Hives Verified 03/17/21 22:13 Sulfa (Sulfonamide Allergy Rash/Hives Verified 03/17/21 22:13 Antibiotics) Physical Exam Vitals: Vital Signs Temp Pulse Resp BP Pulse Ox 03/19/21 04:44 97.8 F 88 16 146/78 94 L 03/18/21 20:23 98.1 F 62 16 134/76 98 03/18/21 20:00 16 03/18/21 14:34 98.1 F 73 16 113/65 94 L Intake and Output 03/18/21 03/19/21 03/19/21 22:59 06:59 14:59 Intake Total 1200 590 Balance 1200 590 Intake: Intake, IV Titration 600 Amount Sodium Chloride 0.9% 1, 600 000 ml @ 75 mls/hr IV . [id number] [facility] Rx#:[id number] Oral 600 590 Other: Voiding Method Toilet Indwelling Catheter # Voids 2 2 Physical Examinations : -Constitutiona : Cooperative , not in acute distress . -HEENT : nech : supple , no Lymphadenopathy , normal thyroid size . : eyes : no ptosis , no icterus, no photophobia . - neurologic : Cranial nerve II to XII intact , no focal neurological deffecit . -psychatric : alert , oriented X 3 , appropriate affect , intact judgment and insight . -Lymphatic : no Lymphadenopathy . - musculoskeltal : Lumber spine moter stegnth lower extremities ,thigh and legs 5/5 Right side , 5/5 Left side deep tendon reflexes : normal Knee Jerk , normal ankle Jerk lumber facet Loading Test =positive Right , positive Left Range of motion of the lumbar spine Flexion 30 degrees, extension 10 degrees strait leg raising test = positive at degree Fabere test= positive Right , and positive LT . tenderness over the Sacroiliac joint on the Right , and Left sides Results CBC & Chem 7: 03/17/21 17:26 03/17/21 17:26 Comments: MRI of the lumbar spine= lumbar degenerative disc disease multilevel, or spondylosis with lumbar facet arthropathy without myelopathy, lumbar spinal stenosis at L4 5 levels Assessment and Plan Plan: Assessment and plan=1-lumbar spinal stenosis. 2-lumbar degenerative disc disease. 3-lumbar spondylosis with lumbar facet arthropathy without myelopathy. Patient could benefit from epidural steroid injection under fluoroscopy guidance at L4 5 or L5-S1, and can be discharged home after the procedure Time with Patient: Greater than 30 PQRS Measure Charge Sheet PQRS Narrative: Smoking Status Never smoker Blood Pressure [Right Arm] 146/78 Blood Pressure 140/96 Pain Intensity [Back] 2 Pain Intensity 7 Pain Scale Used Numeric (1 - 10) Scale Used Numeric (1 - 10) Home Medications: Ambulatory Orders Amoxicillin 500 mg PO TID 03/17/21 DULoxetine HCL [Cymbalta] 60 mg PO HS 03/17/21 Diclofenac Sodium [Voltaren] 75 mg PO BID 03/17/21 Omeprazole 20 mg PO DAILY 03/17/21 Pregabalin [Lyrica] 150 mg PO TID 03/17/21 lisinopriL 10 mg PO DAILY 03/17/21 Cyclobenzaprine [Flexeril] 10 mg PO TID PRN #60 tab 03/18/21 HYDROcodone/APAP 5-325MG [[place]is[place] 5] 1 each PO Q6HR PRN #28 tab 03/18/21 predniSONE 10 mg PO DIRECTED #24 tab 03/18/21
[2021-03-19 10:28] VITALS: BP 163/87; PULSE 95; TEMP 97.1
[2021-03-19] MEDS ORDERED: methylPREDNISolone ACETATE 40 MG/ML 1 ML VIAL ONE (11:00)
[2021-03-19] MEDS ORDERED: IOPAMIDOL M200 10 ML VIAL ONE (11:00)
--- NOTE | 2021-03-19 11:10 | P.PCN ---
Date of Procedure: 03/19/21 Procedure(s) Performed: PREOPERATIVE DIAGNOSIS: 1- Lumbar Degenerative Disc Diseases 2-Lumbar spondylosis with Facet arthropathy without myelopathy 3-Lumbar spinal stenosis POSTOPERATIVE DIAGNOSIS: Same as preop diagnosis. PROCEDURE 1. Lumbar epidural steroid injection under fluoroscopic guidance at the L5-S1 level. (Fluoroscopy imaging was available in radiology department) 2. Lumbar epidurogram. ANESTHESIA: Local with 1% lidocaine 3 ml only. EBL: Minimal PROCEDURE INDICATION: The patient with low back pain and radiculitis symptoms unresponsive to conservative treatment. Fluoroscopy was used to optimize visualization of the needle placement and to maximize safety. PROCEDURE DESCRIPTION / TECHNIQUE: The patient was seen and identified in the preoperative area. Risks, benefits, complications including but not limited to infections ,bleeding ,allergic react ion to the medications ,nerve damage and not complete pain releife , and alternatives were discussed with the patient. The patient agreed to proceed with the procedure and signed the consent. IV was started, and vital signs were stable. Patient was taken to the OR and time out was completed. The patient was placed in the prone position on procedure table and a pillow was placed under the abdomen to reduce lumbar lordosis. The lumbosacral area was prepped and draped in the usual sterile fashion.ere closely monitored during the procedure. Vital signs was monitered during the entire procedure. Using anterior-posterior fluoroscopy, the L5-S1 interlaminar space was identified and the skin over this site was marked and then infiltrated with 1% lidocaine subcutaneously. Subsequently, a 20-gauge Tuohy epidural needle was inserted and advanced toward the epidural space using the ``Loss of resistance technique and guided by AP and lateral fluoroscopy. The correct needle position in the epidural space was verified with the injection of 2 mL of the water soluble contrast dye Isovue 200 contrast and observing an excellent epidurogram with the epidural spread of the dye, after negative aspiration for blood and CSF and in the absence of paresthesias. Again after negative aspiration, a 5 ml mixture containing 40 mg of Depo-medrol , and 2 ml of preservative free Normal Saline, and 2 ml of preservative free lidocaine 1% solution was injected and a washout of epidurogram was seen. Needle was withdrawn intact, skin was cleansed, and bandages were applied. COMPLICATIONS: None DISPOSITION / PLANS: The patient was placed in a supine position and transferred to the recovery area in a stable condition for observation. There was no evidence of lower extremity motor or sensory deficit after the procedure. Patient was discharged from the recovery room after meeting discharge criteria. Home discharge instructions were given to the patient by the staff. The patient was reexamined prior to discharge. The patient will schedule a follow up in the clinic in 2-4 weeks.
--- NOTE | 2021-03-19 11:24 | FL ---
EXAMINATION TYPE: FL guided pain mgmt statistic DATE OF EXAM: 03/19/2021 CLINICAL HISTORY: Low back pain. TECHNIQUE: Fluoroscopy. COMPARISON: None. FINDINGS: Fluoroscopic guidance was provided during pain relief procedure performed by Dr. Church . A total of 1 second of fluoroscopic time was utilized during the procedure and single spot fluoroscop ic image is acquired. Single image acquired shows needle localization at the L5 level with contrast i njection. IMPRESSION: As Above.
== END 2021-03-19 12:54 | disposition home or self-care (01) ==
LOC: EC 15:31 → 5NMEDONC 19:41
PROVIDERS: ADMIT Orthopaedic Surgery Orthopaedic Surgery of the Spine; ATTEND Orthopaedic Surgery Orthopaedic Surgery of the Spine
DX: M51.16 Intervertebral disc disorders with radiculopathy, lumbar region (principal); M48.061 Spinal stenosis, lumbar region without neurogenic claudication; M47.26 Other spondylosis with radiculopathy, lumbar region; M43.16 Spondylolisthesis, lumbar region; R33.9 Retention of urine, unspecified; F41.9 Anxiety disorder, unspecified; G89.29 Other chronic pain; Z79.1 Long term (current) use of non-steroidal anti-inflammatories (NSAID); Z79.899 Other long term (current) drug therapy; Z88.2 Allergy status to sulfonamides; Z86.14 Personal history of Methicillin resistant Staphylococcus aureus infection; Z90.49 Acquired absence of other specified parts of digestive tract; Z98.891 History of uterine scar from previous surgery
CPT/HCPCS: 96376 ×3; 96361; 96375 ×2; 96374; 99285; 36415; 80053; 82550; 83735; 85025; 72131; 72148; 62323; G0378 ×3; J2270 ×2; J1030; J1720; J2930 ×2; Q9966

== ENCOUNTER → 2021-04-19 | Outpatient (CLI) | payer OTHER ==
[2021-04-19 10:11] VITALS: BP 137/90; PULSE 101; RESP 18
--- NOTE | 2021-04-19 10:25 | P.PN ---
Subjective Progress Note Date: 04/19/21 This is a 56-year-old lady with history of chronic lower back pain with rad iation to the lower extremities down to the feet in no specific radiculopathic distribution. The patient also feels some tingling and numbness in the legs. This pain gets worse when she walks for long distances and then she will feel some weakness in her legs. Her lumbar spine MRI showed facet arthropathy with lumbar stenosis. She received 2 lumbar epidural steroid injection but she gets only 1 or 2 days of pain relief after these injections as she states. Patient denies new-onset weakness, bowel/bladder incontinence, or any other signs or symptoms of cauda equina syndrome. There are no signs of acute intoxication, and no indications of medication diversion or overuse. In addition to above, 13-point review of systems is also negative for chest pain, shortness of breath, changes in vision, changes in hearing, new onset weakness, abdominal pain, diarrhea, extreme fatigue, malaise, fever, skin changes, homicidal or suicidal ideation, or bowel or bladder incontinence. Vital Signs: Reviewed in EMR Gen: AAOx3, NAD HEENT: PERRLA,hearing grossly normal Pulm: resp unlabored Neck: supple, trachea midline Neuro exam of the lower extremities: Normal muscle strength bilaterally and normal knee reflexes, absent ankle reflex bilaterally and symmetrically Straight leg raising test: Negative bilaterally No tenderness around the sacroiliac joints. Range of motion of the lumbar spine: Increased Facet loading test: Significantly positive Tenderness in the paravertebral musculature: Neuro: CN II-XII grossly intact, Imaging: Reviewed in EMR/chart Assessment: Lumbar spondylosis without radiculopathy Lumbar stenosis Obesity Plan: 1. Explanation: When patients on opioids, opioid and psychological risk scores were reviewed. Diagnoses, prognoses, and multiple treatment options including but not limited to physical therapy, interventional therapies, adjuvant medical therapies, narcotic medication therapies, and surgery were discussed with the patient and all questions were answered to the patient's satisfaction. 2. Opioid agreement:When patients are prescribed opoids through our clinic, opioid agreement is signed with the patient and the patient is warned not to use opioids while driving or before driving and not to combine opioids with benzodiazepines or alcohol. 3. Counseling: When patient is smoking or obese, the patient was counseled extensively on SMOKING CESSATION, BODY MASS INDEX, EXERCISE. Specifically, the patient was instructed regarding the importance of smoking cessation, obesity, and exercise in the context of both chronic pain and overall health. 4. Procedures: Positive for a diagnostic lumbar medial branch block with possibility to proceed with the lumbar RFA if she gets good response to the diagnostic injection. Procedure was explained to the patient and she was agreeable to it. She understands that doing the diagnostic block will give her only a few hours of pain relief and depending on the improvement in her pain we'll decide if we can proceed with an RFA or not. 5. Consultations: None 6. Investigations: None 7. Medications: Prescribed 8. Disposition: Proceed with the above-mentioned procedure as soon as possible 9. Maps were reviewed and were appropriate. Objective - Vital Signs Vital signs: Vital Signs Temp Pulse 101 H 04/19/21 10:06 Resp 18 04/19/21 10:06 BP 137/90 04/19/21 10:06 Pulse Ox 94 L 04/19/21 10:06
== END ==
LOC: PNWHC3 09:52
PROVIDERS: ATTEND Anesthesiology
DX: M47.816 Spondylosis without myelopathy or radiculopathy, lumbar region (principal); M48.061 Spinal stenosis, lumbar region without neurogenic claudication; E66.9 Obesity, unspecified; Z68.33 Body mass index [BMI] 33.0-33.9, adult; Z88.2 Allergy status to sulfonamides; Z88.8 Allergy status to other drugs, medicaments and biological substances
CPT/HCPCS: 99211

== ENCOUNTER 2021-05-07 12:44 | Day surgery (SDC) | payer OTHER ==
[2021-05-06 09:21] VITALS: BMI 34.5
[~2021-05-07 12:44] MED LIST: LACTATED RINGERS 1,000 ML IV SCH
[2021-05-07] MEDS ORDERED: LIDOCAINE 1% (10MG/ML) FOR IV START INTRADERMA ONE (13:35)
[2021-05-07 13:38] VITALS: TEMP 97.4
[2021-05-07] MEDS ORDERED: ROPIVACAINE 5MG/ML 20ML VIAL ONE (14:00)
[2021-05-07] MEDS ORDERED: TRIAMCINOLONE ACETONIDE 40 MG/ML 1 ML VIAL ONE (14:00)
[2021-05-07] MEDS ORDERED: fentaNYL (PF) 50 MCG/ML 2 ML AMP ONE (14:00)
[2021-05-07] MEDS ORDERED: MIDAZOLAM 2 MG/2 ML VIAL ONE (14:00)
--- NOTE | 2021-05-07 14:17 | P.PCN ---
Date of Procedure: 05/07/21 Description of Procedure: Surgeon: Tomas Smith Pathology: none sent Condition: stable Disposition: PACU Description of Procedure: PREOPERATIVE DIAGNOSIS : 1- Lumbar spondylosis with Facet Arthropathy without myelopathy . 2- Lumber degenerative disc disease POSTOPERATIVE DIAGNOSIS: 1- Lumbar spondylosis with Facet Arthropathy without myelopathy . 2- Lumber degenerative disc disease PROCEDURE: Diagnostic bilateral L4 -5 , and L5-S1 medial branch block under fluoroscopy Physician: Tomas Smith MD ANESTHESIA: Local with 1% lidocaine; IV moderate conscious sedation by the anesthesia Department EBL: Negligible COMPLICATION: None. PROCEDURE INDICATION: Chronic low back pain secondary to Facet arthropathy unresponsive to conservative treatment. PROCEDURE DESCRIPTION: the patient was seen and identified in the preop holding area , risks and benefits and possible complications of the procedure and alternatives were discussed with the patient, and the patient agreed to proceed with the procedure and signed the consent. IV was started and vital signs monitored during the procedure and fluoroscopy was used to maximize the benefit and accuracy of the needle placement, sedation was given to decrease patient anxiety, patient was taken to the procedure room and placed in prone position vital signs monitored. The patient was brought into the procedure room and placed in prone position. Skin was prepped with Chloraprep and draped in a sterile manner. Lidocaine 1% was used to numb the skin up at the target points that were chosen as follows: at the L5-S1 level which corresponds to the dorsal ramus of L5 the target points were at the superior medial aspect of the sacral ala on each side of the spine on the AP view of fluoroscopy, and for the, L3 and L4 medial branches the target points were the connection between the transverse process and the superior articular process of L4 and L5 respectively on the oblique views of fluoroscopy. I used 22-gauge 3-1/2 inch Quincke spinal needles for this procedure and after contacting bone at the target points mentioned above I injected 1 mL of a mixture of Kenalog 40 mg +5 MLS of Ropivacaine 0.5% PF . Patient tolerated procedure well. At the end of the procedure the needles removed and a bandage applied after the skin was cleaned the cleaning solution. patient was then taken to the recovery room in stable condition and monitored in the recovery room for 20-30 minutes and discharged home in stable condition after discharge criteria met . A copy of the needle placement picture was saved to the C-arm machine.
[2021-05-07] MEDS ORDERED: IV FLUID CONTINUATION 900 ML IV ONE (14:22)
--- NOTE | 2021-05-07 14:27 | FL ---
EXAMINATION TYPE: FL guided pain mgmt statistic DATE OF EXAM: 05/07/2021 HISTORY: Fluoroscopy time 9 seconds of fluoroscopy provided. IMPRESSION: 1. Fluoroscopy time.
[2021-05-07 14:43] VITALS: BP 107/63; PULSE 87; RESP 18
== END 2021-05-07 14:57 | disposition home or self-care (01) ==
LOC: ORPAIN 12:44
PROVIDERS: ATTEND Anesthesiology
DX: G89.29 Other chronic pain (principal); M47.816 Spondylosis without myelopathy or radiculopathy, lumbar region; M51.36 Other intervertebral disc degeneration, lumbar region; I10 Essential (primary) hypertension; K21.9 Gastro-esophageal reflux disease without esophagitis; E66.9 Obesity, unspecified; Z68.35 Body mass index [BMI] 35.0-35.9, adult; Z98.51 Tubal ligation status; Z78.0 Asymptomatic menopausal state; Z79.899 Other long term (current) drug therapy; Z88.2 Allergy status to sulfonamides; Z88.8 Allergy status to other drugs, medicaments and biological substances
CPT/HCPCS: 64493; 64494; J2250; J3301; J3010; J2795

== ENCOUNTER 2021-06-29 11:28 | Day surgery (SDC) | payer OTHER ==
[2021-06-23 12:20] VITALS: BMI 34.9
[2021-06-29] MEDS ORDERED: LACTATED RINGERS 1,000 ML IV ONE (11:48)
[2021-06-29 12:04] LABS: Glucose,Whole Blood 87 mg/dL (75-99)
[2021-06-29 12:05] VITALS: RESP 16; TEMP 97.9
[2021-06-29] MEDS ORDERED: MIDAZOLAM 2 MG/2 ML VIAL ONE (12:36)
[2021-06-29] MEDS ORDERED: ROPIVACAINE 5MG/ML 20ML VIAL ONE (12:36)
[2021-06-29] MEDS ORDERED: fentaNYL (PF) 50 MCG/ML 2 ML AMP ONE (12:36)
[2021-06-29] MEDS ORDERED: methylPREDNISolone ACETATE 40 MG/ML 1 ML VIAL ONE (12:36)
--- NOTE | 2021-06-29 12:55 | P.PCN ---
Date of Procedure: 06/29/21 Procedure(s) Performed: PREOPERATIVE DIAGNOSIS : 1- Lumbar spondylosis with Facet Arthropathy without myelopathy . 2- Lumber degenerative disc disease POSTOPERATIVE DIAGNOSIS: 1- Lumbar spondylosis with Facet Arthropathy without myelopathy . 2- Lumber degenerative disc disease PROCEDURE: Diagnostic bilateral L3 , L4 , and L5 medial branch block under fluoroscopy guidance(fluoroscopy images available in the radiology Department ) ( To target the facet joint between bilateral L4-5 , and L5-S1 ) ANESTHESIA:, moderate sedation with intravenous Versed 2 mg and Fentanyl 100 mcg. EBL: Minimal COMPLICATION: None PROCEDURE INDICATION: Chronic low back pain secondary to Facet arthropathy unresponsive to conservative treatment. PROCEDURE DESCRIPTION: the patient was seen and identified in the preop holding area , risks and benefits and possible complications of the procedure and alternative were discussed with the patient, and the patient agreed to proceed with the procedure and signed the consent and vital signs monitored during the procedure and fluoroscopy was used to maximize the benefit and accuracy of the needle placement, and sedation was given to decrease patient anxiety, patient was taken to the procedure room and placed in prone position vital signs monitored in the back prepped with chlorhexidine X3 then under strict sterile technique using a right oblique fluoroscopy ,the junction of the transverse process and the superior articulating process of the right L3 , L4 , and L5 vertebra which corresponding to the fluoroscopy image of the eye of the Maksim dog on the block side for the medial branches and subsequently , after local infiltration of skin and subcu tissuies with Ropivacaine 0.5 % , one mL at each level ,then 22-gauge Quincke-type needles , 3 needle was used , each one of them placed at the junction of the base of the transverse process and the superior articular process at the appropriate level, and the needle was advanced until the periosteum contacted, needle placement confirmed with AP oblique and lateral view and after appropriate needle placement confirmed, and after negative aspiration for heme and CSF and there was no paresthesia 1-1/2 mL of Ropivacaine 0.5% mixed with 20 mg Depo-Medrol , then half mL injected at each level after negative aspiration the needle subsequently removed and the same procedure repeated for the left side at left side at L3 , L4 and L5 levels. At the end of the procedure and the needles removed and a bandage applied after the skin was cleaned the cleaning solution patient taken to recovery room in stable condition and monitors in the recovery room for 20-30 minutes and discharged home in stable condition after discharge criteria met and patient will follow up with the pain clinic in 2-4 weeks
[2021-06-29] MEDS ORDERED: IV FLUID CONTINUATION 700 ML IV ONE (12:59)
[2021-06-29 13:25] VITALS: BP 124/84; PULSE 80
--- NOTE | 2021-06-29 16:12 | FL ---
Fluoroscopy INDICATION: Pain FINDINGS: Fluoroscopy time: 7 seconds. Images obtained: 4. IMPRESSIONS: 1. Documentation of fluoroscopy.
== END 2021-06-29 13:30 | disposition home or self-care (01) ==
LOC: ORPAIN 11:28
PROVIDERS: ATTEND Specialist
DX: M47.816 Spondylosis without myelopathy or radiculopathy, lumbar region (principal)
CPT/HCPCS: 99152

== ENCOUNTER 2021-10-15 08:56 | Day surgery (SDC) | payer OTHER ==
[2021-10-13 13:52] VITALS: BMI 36.6
[~2021-10-15 08:56] MED LIST changes: +LIDOCAINE 1% (10MG/ML) FOR IV START INTRADERMA PRN
[2021-10-15 09:21] VITALS: TEMP 97.8
[2021-10-15 09:30] LABS: Glucose,Whole Blood 95 mg/dL (75-99)
[2021-10-15] MEDS ORDERED: LACTATED RINGERS 1,000 ML IV ONE (09:30)
[2021-10-15] MEDS ORDERED: methylPREDNISolone ACETATE 40 MG/ML 1 ML VIAL ONE (09:53)
[2021-10-15] MEDS ORDERED: fentaNYL (PF) 50 MCG/ML 2 ML AMP ONE (09:53)
[2021-10-15] MEDS ORDERED: ROPIVACAINE 5MG/ML 20ML VIAL ONE (09:53)
[2021-10-15] MEDS ORDERED: MIDAZOLAM 2 MG/2 ML VIAL ONE (09:53)
--- NOTE | 2021-10-15 10:22 | P.PCN ---
Date of Procedure: 10/15/21 Procedure(s) Performed: PREOPERATIVE DIAGNOSIS: 1-Lumbar Spondylosis with Facet Arthropathy without myelopathy. 2- Lumber degenerative disc disease. POSTOPERATIVE DIAGNOSIS: 1- Lumbar Spondylosis with Facet Arthropathy without myelopathy. 2- Lumber degenerative disc disease. PROCEDURES : Bilateral Radiofrequency thermocoagulation, L3 , L4 , and L5 medial branch, with fluoroscopic guidance (fluoroscopy images available in the radiology department) ( to denervate the facet joint at bilateral L4-5 ,and L5-S1 levels ). ANESTHESIA: Monitored anesthesia care as per anesthesia department . EBL: Minimal PROCEDURE INDICATION: The patient with low back pain secondary to lumbar facet arthropathy who had more than 50% relief of her pain with previous diagnostic lumbar medial branch block with bupivacaine. PROCEDURE DESCRIPTION / TECHNIQUE: The patient was seen and identified in the preoperative area. Risks, benefits, complications, including but not limited to risk of infection ,bleeding , allergic reactions to the medications and no complete pain releife , and alternatives were discussed with the patient, the patient agreed to proceed with the procedure and signed the consent. IV was started. Vital signs remained stable throughout the procedure. Patient was taken to the OR and time out was completed. The patient was placed in the prone position on the procedure table. The lumber area was prepped and draped in the usual sterile fashion. . Vital signs were closely monitored during the procedure .IV sedation was used during the procedure to decrease patients anxiety. Using AP and then oblique fluoroscopy, the ``eye of the Maksim dog cor responding to the connection between the superior and transverse articular processes of right L3, L4, and L5 were identified, marked, and localized with 1% lidocaine. Subsequently, a 18 [id number] radiofrequency cannula with a 10- mm active tip was advanced guided by fluoroscopy to each of the``eyes of the Maksim dog at right L3, L4, and L5. Each site then underwent sensory testing at 50 Hz and 0 to 1 volt and motor testing at 2.5 Hz and 0 to 3 volt with local stimulation, but no radicular symptoms down the legs. Thereafter each sites underwent radiofrequency thermocoagulation at 80 degrees celsius for 90 seconds after injecting 0.5 ml of PF Ropivacaine 1ml, then after the thermocoagulation done , 1 ml of the block solution containing Depo-Medrol 20 mg and 3 ml of Ropivacaine 0.5% was injected at the right L3 , L4 , and L5 , levels after negative aspiration of CSF and blood and with no paresthesias. Cannulas were retracted while injecting lidocaine 1% until the needle is out. The same procedure was repeated at the level of Left L3, L4, and L5 levels. At the end of the procedure, the skin was cleansed and bandages were applied. COMPLICATIONS: No acute complications. DISPOSITION / PLANS: The patient was placed in a supine position and transferred to the recovery area in a stable condition for observation and was discharged from the recovery room after meeting discharge criteria. Home discharge instructions given to the patient by the staff. The patient was reexamined prior to discharge. The patient will schedule a follow up in the clinic in 2-4 weeks.
[2021-10-15] MEDS ORDERED: IV FLUID CONTINUATION 975 ML IV ONE (10:30)
--- NOTE | 2021-10-15 10:42 | FL ---
EXAMINATION TYPE: FL guided pain mgmt statistic DATE OF EXAM: 10/15/2021 CLINICAL HISTORY: Low back pain. TECHNIQUE: Fluoroscopy. COMPARISON: None. FINDINGS: Fluoroscopic guidance was provided during pain relief procedure performed by Dr. Collins . A total of 14 seconds of fluoroscopic time was utilized during the procedure and 6 spot images are acquired. Images acquired shows needle localization at several levels in the lumbar spine. IMPRESSION: As Above.
[2021-10-15 10:59] VITALS: BP 122/79; PULSE 94; RESP 16
== END 2021-10-15 11:09 | disposition home or self-care (01) ==
LOC: ORPAIN 08:56
PROVIDERS: ATTEND Specialist
DX: M47.816 Spondylosis without myelopathy or radiculopathy, lumbar region (principal); M51.36 Other intervertebral disc degeneration, lumbar region; I10 Essential (primary) hypertension; Z87.09 Personal history of other diseases of the respiratory system; E11.9 Type 2 diabetes mellitus without complications; Z88.2 Allergy status to sulfonamides; Z88.8 Allergy status to other drugs, medicaments and biological substances; F41.9 Anxiety disorder, unspecified; K21.9 Gastro-esophageal reflux disease without esophagitis; Z79.1 Long term (current) use of non-steroidal anti-inflammatories (NSAID); Z79.899 Other long term (current) drug therapy; Z98.891 History of uterine scar from previous surgery; Z90.49 Acquired absence of other specified parts of digestive tract; Z98.890 Other specified postprocedural states; Z86.16 Personal history of COVID-19
CPT/HCPCS: 64635; 64636; J2250; J1030; J3010; J2795

== ENCOUNTER 2021-12-07 08:22 | Day surgery (SDC) | payer OTHER ==
[2021-12-06 13:14] VITALS: BMI 36.6
[2021-12-07] MEDS ORDERED: LIDOCAINE 1% (10MG/ML) FOR IV START INTRADERMA PRN (08:58)
[2021-12-07] MEDS ORDERED: LACTATED RINGERS 1,000 ML IV SCH (08:58)
[2021-12-07 09:13] VITALS: RESP 18; TEMP 96.9
[2021-12-07] MEDS ORDERED: fentaNYL (PF) 50 MCG/ML 2 ML AMP ONE (09:26)
[2021-12-07] MEDS ORDERED: MIDAZOLAM 2 MG/2 ML VIAL ONE (09:26)
[2021-12-07] MEDS ORDERED: ROPIVACAINE 5MG/ML 20ML VIAL ONE (09:26)
[2021-12-07] MEDS ORDERED: methylPREDNISolone ACETATE 40 MG/ML 1 ML VIAL ONE (09:26)
[2021-12-07] MEDS ORDERED: LACTATED RINGERS 1,000 ML IV ONE (09:26)
[2021-12-07 09:35] LABS: Glucose,Whole Blood 103 mg/dL (75-99)
--- NOTE | 2021-12-07 09:37 | P.PCN ---
Date of Procedure: 12/07/21 Procedure(s) Performed: Procedure= bilateral sacroiliac joints steroid injection under fluoroscopy guidance (fluoroscopy image stored on file in the radiology Department ) Preoperative diagnosis= 1-sacroiliitis 2-lumbar degenerative disc disease 3- lumbar facet arthropathy Postoperative diagnosis=Same as preop Diagnosis . Complication = none Condition= stable Anesthesia= moderate sedation with intravenous Versed 2 mg , and fentanyl 100 micrograms . Indication for the procedure= patient complaining of low back pain , examination was positive for severe tenderness over the sacroiliac joints bilaterally and patient diagnosed with sacroiliitis, for this reason ,she was good candidate for sacroiliac joint steroid injection. Description of the procedure= procedure risk and benefits discussed with the patient, including but not limited, risk of infection and bleeding, and ALLERGIC reaction to the medication and not complete pain relief and patient agreed with the preceding patient taken to the operating room, placed in prone position or standard monitors applied to the patient then after induction of anesthesia back prepped with chlorhexidine 3 times , Then under strict sterile technique, first I did the right sacroiliac joint the which was identified under fluoroscopy guidance been local infiltration of the skin and subcu interstitial with lidocaine 1% then 22-gauge Quincke Needle advanced slowly under fluoroscopy and placed in the right sacroiliac joint needle placement confirmed with AP and oblique and lateral view and after appropriate needle placement confirmed and after negative aspiration, or heme , then Ropivacaine 0.5% 4 mL, and 40 mg of Depo-Medrol mixed together and injected in the right sacroiliac joint after negative aspiration patient tolerated the procedure well without any complication. Then the left sacroiliac joint steroid injection done under strict sterile technique local infiltration of the skin and subcu interstitial at the location of the left sacroiliac joint then a 22-gauge Quincke Needle advanced slowly under fluoroscopy time placed in the left sacroiliac joint, needle placement confirmed with AP and oblique and lateral view then after appropriate needle placement confirmed and after negative aspiration 0.5% Ropivacaine 4 mL and 40 mg of Depo-Medrol injected in the left sacroiliac joint after negative aspiration patient tolerated the procedure well that any complications and she will follow up in clinic 3 weeks
[2021-12-07 09:58] VITALS: BP 112/58; PULSE 88
[2021-12-07] MEDS ORDERED: IV FLUID CONTINUATION 1,000 ML IV ONE (09:59)
--- NOTE | 2021-12-07 10:01 | FL ---
EXAMINATION TYPE: FL guided pain mgmt statistic DATE OF EXAM: 12/07/2021 CLINICAL HISTORY: Bilateral SI joints injection TECHNIQUE: Fluoroscopic-guided procedure. FINDINGS: Fluoroscopic guidance was provided during the procedure. A total of 2 seconds of fluorosco pic time was utilized during the procedure and 2 spot images were acquired. IMPRESSION: As Above.
== END 2021-12-07 10:04 | disposition home or self-care (01) ==
LOC: ORPAIN 08:22
PROVIDERS: ATTEND Specialist
DX: M46.1 Sacroiliitis, not elsewhere classified (principal); M51.36 Other intervertebral disc degeneration, lumbar region
CPT/HCPCS: G0260; J2250; J1030; J3010; J2795; 99152

== ENCOUNTER → 2021-12-29 | Outpatient (CLI) | payer OTHER ==
[2021-12-29 09:50] VITALS: BP 136/86; PULSE 96; RESP 18; TEMP 98.4
--- NOTE | 2021-12-29 09:59 | P.PN ---
Subjective Progress Note Date: 12/29/21 Principal diagnosis: A 56 yr old female with a history of severe and chronic low back pain secondary to lumbar degenerative disc diseases and lumbar spondylosis with facet arthropathy presents today for evaluation status post BL SI joint injections and lower back pain. She states she expressed 95% pain relief status post procedure. Pain level is currently at 10 in intensity in the lower aspect of her lumbar spine, pressure and numbness in character with radiation of pain down the lower extremities in the feet. Pain is provoked by standing and walking. Pain is alleviated with medications, injections, ice, heat, physical therapy integrated with massage from , use of a cane for ambulation, laying on her right side, laying supine and rest. Interventional pain procedures completed include BL SI joint injections, BL RFA L3-L5 Patient is currently on Tylenol, Lyrica, Voltaren tablets Patient denies any side effects of the medication(s), denies excessive drowsiness or sleepiness, denies suicidal ideation and reports that the current pain medication is helping to control the pain and improve activities of daily living. Patient denies any motor or sensory deficits. Patient denies any fever or night sweats, denies any change in the bowel movements or urination. Physical Examination: -Constitutional: Cooperative. Not in acute distress . -HEENT: Neck is supple. No lymphadenopathy. No thyromegaly. Normal thyroid size. Eyes: No ptosis , no icterus, no photophobia. ENT: No auditory deficits. Normal oropharynx. No Thrush. - Respiratory: Chest clear to auscultations bilaterally. No wheezing. No rhonchi. - Cardiovascular: Regular rate and rhythm. S1 / S2 , no S3 , no S4. - Gastrointestinal: Abdomen soft no tenderness. Bowel sounds positive in all four quadrants. No organomegaly. - Genitourinary: Deferred. - Neurologic: Cranial nerve II to XII intact. No focal neurological deficits. - Psychatric: Alert & oriented x 3. Matching mood & appropriate affect. Judgment and insight intact. - Lymphatic: No Lymphadenopathy. - Musculoskeletal: Cervical spine: Muscle bulk/ tone/ strength in the bilateral upper extremities normal Vertebral body tenderness to palpation over Facet loading test positive Thoracic spine Muscle bulk / tone/ strength in the bilateral paraspinal muscles normal Vertebral body tender to palpation over Facet loading test positive Lumbar spine: Motor bulk/ tone/ strength lower extremities , thigh and legs : 5/5 Deep tendon reflexes : Normal Knee Jerk. Normal Ankle Jerk . Vertebral body tenderness to palpation over L4, L5 Lumbar Facet Loading Test positive Straight Leg Raise: positive at 30 degrees right side/ left side Gaenslen's Test positive Sacral spine : Severe tenderness over the Sacroiliac joint: right side / left side Range of motion: Flexion of the lumbar spine <60 degrees Range of motion: Extension of the lumbar spine <20 degrees Gaenslen's Test positive Gabe's Test positive Denia test: positive right side / left side Thigh Thrust Test Sacral Thrust Test Assessment and plan: Chronic low back pain secondary to lumbar degenerative disc disease , lumbar spondylosis with facet arthropathy without myelopathy Recommendation of #1 LESI L4-L5 and of #2 BL SI joint injections. May need a series of LESI injections, up to 3 within a six-month period, for optimal pain relief. Risks, benefits of procedure discussed and pt verbalized understanding. Denies anticoagulant use or medical history of diabetes. If LESI is ineffective in reducing pain or pt has difficulty improving strength, she will return to her orthopedic surgeon for further treatment options. All patient questions answered MAPS reviewed and it was appropriate. I have spent 31 minutes on patient care today. Dr Collins was available by phone for the evaluation of this patient. The time was used to review the medical records including relevant urine studies and Prescription history (MAPs), review of the available imaging, evaluation and examination of the patient, coordination of care with the medical staff and if applicable referring physicians, as well as creation of the medical record Objective - Vital Signs Vital signs: Vital Signs Temp 98.4 F 12/29/21 09:41 Pulse 96 12/29/21 09:41 Resp 18 12/29/21 09:41 BP 136/86 12/29/21 09:41 Pulse Ox FiO2 Intake & Output 12/28/21 12/29/21 12/29/21 18:59 06:59 18:59 Weight 89.811 kg PQRS Measure Charge Sheet Mode of Arrival: Ambulatory - Pain Location Bilateral Lower Back Non-Pharmacological Interventions: Heat, Inactivity, Physical Therapy, Position/Reposition Pharmacological Interventions: Block, Medication, PRN Medication, Topical Medication PQRS Narrative: Smoking Status Never smoker Blood Pressure 136/86 Pain Intensity [Bilateral 3 Lower Back] Scale Used Numeric (1 - 10) Hx Alcohol Use (MH) No Home Medications: Ambulatory Orders DULoxetine HCL [Cymbalta] 60 mg PO HS 03/17/21 Diclofenac Sodium [Voltaren] 75 mg PO BID 03/17/21 Omeprazole 20 mg PO DAILY 03/17/21 Pregabalin [Lyrica] 150 mg PO TID 03/17/21 lisinopriL 10 mg PO DAILY 03/17/21 Acetaminophen Tab [Tylenol] 650 mg PO DAILY PRN 12/06/21 Cetirizine HCl [Zyrtec] 10 mg PO DAILY 12/06/21 Cyclobenzaprine [Flexeril] 10 mg PO BID 12/06/21
== END ==
LOC: PNWHC3 08:50
PROVIDERS: ATTEND Specialist
DX: M51.36 Other intervertebral disc degeneration, lumbar region (principal); M47.816 Spondylosis without myelopathy or radiculopathy, lumbar region; G89.29 Other chronic pain; Z88.2 Allergy status to sulfonamides; Z88.8 Allergy status to other drugs, medicaments and biological substances
CPT/HCPCS: 99211

== ENCOUNTER 2022-02-03 09:01 | Day surgery (SDC) | payer OTHER ==
[2022-01-28 15:04] VITALS: BMI 35.3
[2022-02-03 09:21] VITALS: TEMP 97
[2022-02-03] MEDS ORDERED: LACTATED RINGERS 1,000 ML IV ONE (09:25)
[2022-02-03 09:31] LABS: Glucose,Whole Blood 83 mg/dL (70-110)
[2022-02-03] MEDS ORDERED: MIDAZOLAM 2 MG/2 ML VIAL ONE (09:41)
[2022-02-03] MEDS ORDERED: IOPAMIDOL M200 10 ML VIAL ONE (09:41)
[2022-02-03] MEDS ORDERED: methylPREDNISolone ACETATE 80 MG/ML 1 ML VIAL ONE (09:41)
[2022-02-03] MEDS ORDERED: fentaNYL (PF) 50 MCG/ML 2 ML AMP ONE (09:41)
[2022-02-03] MEDS ORDERED: LIDOCAINE 2% INJ 20 MG/ML (2 ML VIAL) ONE (09:41)
[2022-02-03] MEDS ORDERED: LACTATED RINGERS 1,000 ML IV SCH ×2 (09:45→11:00)
--- NOTE | 2022-02-03 09:58 | P.PCN ---
Date of Procedure: 02/03/22 Description of Procedure: 1. L4-L5 Epidural steroid injection under fluoroscopic guidance , 2. Lumbar epidurogram 3. Bilateral sacroiliac joint injections under fluoroscopic PREOPERATIVE DIAGNOSIS: Lumbar degenerative disc disease, and Lumbar radiculopathy. POSTOPERATIVE DIAGNOSIS: Lumbar degenerative disc disease, and Lumbar radiculopathy. SURGEON: Gwyn Moya ANESTHESIA: Local with 1% lidocaine, and IV sedation: Versed 2 mg, and fentanyl 100 g EBL: None. Specimen removed: None Fluoroscopic image: saved to electronic medical records PROCEDURE INDICATION: The patient had history of Lumbar degenerative disc disease and Lumbar radiculopathy. Failed to conservative therapy. Presented for epidural steroid injection. PROCEDURE DESCRIPTION: The patient was seen and identified in the preoperative area. Risks, benefits, complications, and alternatives were discussed with the patient. The patient agreed to proceed with the procedure and signed the consent. IV was started, and vital signs were stable. Patient was taken to the procedure area, and time out was completed. The patient was placed in the prone position on procedure table and a pillow was placed under the abdomen to reduce lumbar lordosis. The lumbosacral area was prepped and draped in the usual sterile fashion. Critical pause was taken. Vital signs were closely monitored during the procedure. Using anterior-posterior fluoroscopy, the L4-L5 interlaminar space was identified, and skin and deeper tissues were localized with 1% lidocaine. Using anterior-posterior fluoroscopy, lateral fluoroscopy, and [id number] technique, a 20 gauge 3.5 Tuohy epidural needle entered the epidural space. After negative aspiration of CSF and blood with no paresthesias, 2 ml of [id number] contrast dye was injected and an excellent epidurogram was seen. Again after negative aspiration of CSF and blood with no paresthesias, 10 mL of block solution was injected into the epidural space. Block solution contained 40 mg of Depo-Medrol, and 9 mL of preservative-free normal saline. Needle was withdrawn intact, skin was cleansed, and bandages were applied. COMPLICATIONS: None. PREOPERATIVE DIAGNOSIS: Sacroiliac joint dysfunction POSTOPERATIVE DIAGNOSIS: Sacroiliac joint dysfunction. PROCEDURES: 1. Sacroiliac joint steroid injection 2. Sacroiliac joint arthrogram. SURGEON: Gwyn Moya ANESTHESIA: Local . EBL: None. Specimen removed: None Fluoroscopic image: saved to electronic medical records. PROCEDURE INDICATIONS: This patient with a history of chronic low back pain, and sacroiliac joint dysfunction. Patient tried conservative therapy. Came here for intervention management. PROCEDURE DESCRIPTION: The patient was seen and identified in the preoperative area. Risks, benefits, complications, and alternatives were discussed with the patient. The patient agreed to proceed with the procedure and signed the consent. IV was started, and vital signs were stable. After the lumbar L4-L5 epidural straight injection, The lumbosacral area was prepped and draped in the usual sterile fashion. Critical pause was taken. Vital signs were closely monitored during the procedure. For the right side, the fluoroscopic camera was placed in left oblique view and right SI joint lower pole was identified. Skin entry point was infiltrated with 1% lidocaine and 22-gauge 3.5 inch spinal needle was introduced into the inferior one-third of SI joint and after penetrating into the joint arthrogram was done. 0.5 ml of [id number] contrast was injected after negative aspiration for blood, and air and negative for paresthesia. Good spread of the contrast into the SI joint has been seen. Then again after negative aspiration of spinal fluid and blood and negative for neurological symptoms, 3 mL of a solution containing total 2.5 mL of 1% preservative-free lidocaine mixed with 20 mg of Depo-Medrol was injected. Needle was withdrawn intact. The entire procedure was repeated on the left side as above. Needle was withdrawn intact. Skin was cleansed, and bandages were applied. COMPLICATIONS: None. Total stride used for the procedure 40 Depo-Medrol +40 Depo-Medrol total 80 mg DISPOSITION / PLANS: The patient was placed in a supine position and transferred to the recovery area in a stable condition for observation and was discharged from the recovery room after meeting discharge criteria. Home discharge instructions given to the patient by the staff. The patient was reexamined prior to discharge. The patient will schedule for follow-up visit with the pain clinic in 4 weeks duration.
[2022-02-03] MEDS ORDERED: IV FLUID CONTINUATION 1,000 ML IV ONE ×2 (10:01)
[2022-02-03 10:06] VITALS: BP 124/73
--- NOTE | 2022-02-03 10:07 | FL ---
Fluoroscopy History: LUM EPI STEROID INJ Lumbar epidural and nabil SI joint steroid injections. 5 sec fl. 5 images sent.
[2022-02-03 10:27] VITALS: PULSE 88; RESP 18
== END 2022-02-03 11:08 | disposition home or self-care (01) ==
LOC: ORPAIN 09:01
DX: G89.29 Other chronic pain (principal); M51.16 Intervertebral disc disorders with radiculopathy, lumbar region; I10 Essential (primary) hypertension; M19.90 Unspecified osteoarthritis, unspecified site; F32.A Depression, unspecified; Z88.2 Allergy status to sulfonamides; Z91.09 Other allergy status, other than to drugs and biological substances
CPT/HCPCS: 62323; J2250; J1040; J3010; Q9966; J2001; G0260; 99152

== ENCOUNTER → 2022-02-24 | Outpatient (CLI) | payer OTHER ==
[2022-02-24 10:31] VITALS: BP 118/85; PULSE 93; RESP 18; TEMP 98.5
--- NOTE | 2022-02-24 14:34 | P.PAINPG ---
PQRS Measure Charge Sheet Comment: A 57 yr old female with a history of severe and chronic low back pain secondary to lumbar degenerative disc diseases and lumbar spondylosis, BL Sacroiliitis with facet arthropathy presents today for evaluation s/p LESI L4- L5. Pt states she received 70% pain relief x 3 weeks s/p procedure. Pain level is currently at 7/10 in intensity, constant, localized in the lower lumbar spine, L & R of midline, w radiation in the BLEs, tight/sharp/tingly in character. Pain is provoked by walking/standing for periods of 30 min or more. Pain is alleviated with PT in January x 6 weeks, massage integrated with PT, heat, ice, use of cane for ambulation, medications (Flexeril and another unknown to her), pain patches, repositioning and rest. Interventional pain procedures completed include LESI L4-L5, BL SI injections. Patient is currently on Flexeril, Lyrica Patient denies any side effects of the medication(s), denies excessive drowsiness or sleepiness, denies suicidal ideation and reports that the current pain medication is helping to control the pain and improve activities of daily living. Patient denies any motor or sensory deficits. Patient denies any fever or night sweats, denies any change in the bowel movements or urination. Physical Examination: -Constitutional: Cooperative. Not in acute distress . - Neurologic: Cranial nerve II to XII intact. No focal neurological deficits. - Psychatric: Alert & oriented x 3. Matching mood & appropriate affect. Judgment and insight intact. - Musculoskeletal: Cervical spine: Muscle bulk/ tone/ strength in the bilateral upper extremities normal Vertebral body tenderness to palpation over Spurling test positive Distraction test positive Facet loading test positive Thoracic spine Muscle bulk / tone/ strength in the bilateral paraspinal muscles normal Vertebral body tender to palpation over Facet loading test positive Lumbar spine: Motor bulk/ tone/ strength lower extremities , thigh and legs : 5/5 Deep tendon reflexes : Normal Knee Jerk. Normal Ankle Jerk . Vertebral body tenderness to palpation over Lumbar Facet Loading Test positive Straight Leg Raise: positive at 30 degrees right side/ left side Gaenslen's Test positive Sacral spine : Severe tenderness over the Sacroiliac joint: right side / left side Range of motion: Flexion of the lumbar spine <60 degrees Range of motion: Extension of the lumbar spine <20 degrees Gaenslen's Test positive R side Denia test: positive right side / left side R Thigh Thrust Test Sacral Thrust Test +R Assessment and plan: Chronic low back pain secondary to lumbar degenerative disc disease , lumbar spondylosis with facet arthropathy & BL Sacroiliitis Recommendation of R SI joint injection. May need a series of injections, up to every 3 mo , for optimal pain relief. Risks, benefits of procedure discussed and pt verbalized understanding. Denies anticoagulant use or medical history of diabetes. All patient questions answered MAPS reviewed and it was appropriate. I have spent less than 30 minutes on patient care today. Dr Collins was available by phone for the evaluation of this patient. The time was used to review the medical records including relevant urine studies and Prescription history (MAPs), review of the available imaging, evaluation and examination of the patient, coordination of care with the medical staff and if applicable referring physicians, as well as creation of the medical record PQRS Narrative: Smoking Status Never smoker Hx Alcohol Use (MH) No Home Medications: Ambulatory Orders DULoxetine HCL [Cymbalta] 60 mg PO HS 03/17/21 Diclofenac Sodium [Voltaren] 75 mg PO BID 03/17/21 Omeprazole 20 mg PO DAILY 03/17/21 Pregabalin [Lyrica] 150 mg PO TID 03/17/21 lisinopriL [Prinivil] 10 mg PO DAILY 03/17/21 Acetaminophen Tab [Tylenol] 650 mg PO DAILY PRN 12/06/21 Cetirizine HCl [Zyrtec] 10 mg PO DAILY 12/06/21 Cyclobenzaprine [Flexeril] 10 mg PO BID 12/06/21 Controlled Substance Measures - Controlled Substance Measures Is patient prescribed a controlled substance at discharge?: No
== END ==
LOC: PNWHC3 09:51
PROVIDERS: ATTEND Specialist
DX: M46.1 Sacroiliitis, not elsewhere classified (principal); M47.816 Spondylosis without myelopathy or radiculopathy, lumbar region; M51.36 Other intervertebral disc degeneration, lumbar region; G89.29 Other chronic pain; Z88.2 Allergy status to sulfonamides; Z88.8 Allergy status to other drugs, medicaments and biological substances
CPT/HCPCS: 99211

== ENCOUNTER 2022-03-22 00:36 | Emergency (ER) | payer OTHER ==
[2022-03-22 00:49] VITALS: BP 126/77; PULSE 87; RESP 16; TEMP 98.2
[2022-03-22] MEDS ORDERED: SODIUM CHLORIDE 0.9% 1,000 ML IV STA (02:40)
[2022-03-22] MEDS ORDERED: KETOROLAC 15 MG/ML 1 ML VIAL IVP STA (02:40)
[2022-03-22] MEDS ORDERED: MORPHINE SULFATE 4 MG/ML SYRINGE IV STA (02:40)
[2022-03-22] MEDS ORDERED: ONDANSETRON 4 MG/2 ML VIAL IVP STA (02:40)
--- NOTE | 2022-03-22 02:41 | ED ---
Abdominal Pain HPI - General Chief Complaint: Abdominal Pain Stated Complaint: Back Pain Time Seen by Provider: 03/22/22 02:39 Source: patient, RN notes reviewed, old records reviewed Mode of arrival: ambulatory Limitations: no limitations - History of Present Illness Initial Comments: This is a 57-year-old female to the emergency department for evaluation. Patient coming in with severe right-sided abdominal pain history of kidney stones believes maybe kidney stone but may be worse. Patient has mild nausea no vomiting no travel history no sick contacts no trauma no fevers no other complaints. Patient states symptoms started today and Progressively worse MD Complaint: abdominal pain, flank pain -: hour(s) Location: R flank Radiation: RUQ Migration to: bilateral flank Severity: moderate Severity scale (1-10): 7 Quality: sharp Consistency: constant Improves With: nothing Worsens With: nothing Associated Symptoms: nausea Treatments Prior to Arrival: other (0) - Related Data Home Medications Medication Instructions Recorded Confirmed DULoxetine HCL [Cymbalta] 60 mg PO HS 03/17/21 02/24/22 Diclofenac Sodium [Voltaren] 75 mg PO BID 03/17/21 02/24/22 Omeprazole 20 mg PO DAILY 03/17/21 02/24/22 Pregabalin [Lyrica] 150 mg PO TID 03/17/21 02/24/22 lisinopriL [Prinivil] 10 mg PO DAILY 03/17/21 02/24/22 Acetaminophen Tab [Tylenol] 650 mg PO DAILY PRN 12/06/21 02/24/22 Cetirizine HCl [Zyrtec] 10 mg PO DAILY 12/06/21 02/24/22 Cyclobenzaprine [Flexeril] 10 mg PO BID 12/06/21 02/24/22 Allergies Allergy/AdvReac Type Severity Reaction Status Date / Time citalopram [From Celexa] Allergy Rash/Hives Verified 03/22/22 00:46 gabapentin [From Neurontin] Allergy Rash/Hives Verified 03/22/22 00:46 quetiapine [From Seroquel] Allergy Rash/Hives Verified 03/22/22 00:46 Sulfa (Sulfonamide Allergy Rash/Hives Verified 03/22/22 00:46 Antibiotics) Review of Systems ROS Statement: Those systems with pertinent positive or pertinent negative responses have been documented in the HPI. ROS Other: All systems not noted in ROS Statement are negative. Past Medical History Past Medical History: Diabetes Mellitus, GERD/Reflux, Hypertension, Musculoskeletal Disorder, Skin Disorder Additional Past Medical History / Comment(s): Covid Jun,Spondylolisthesis L4 5 lower back pain, bulging disc to back, spinal stenosis; sl NT feet. Hx migraines, chronic bronchitis, rosacea. "Borderline DM, watching diet.", pt states right leg gave out and she fell and she has some bruises. History of Any Multi-Drug Resistant Organisms: MRSA Date of last positivie culture/infection: 2017 MDRO Source:: back Past Surgical History: Appendectomy, Section, Tonsillectomy Additional Past Surgical History / Comment(s): Pain procedure Past Anesthesia/Blood Transfusion Reactions: Motion Sickness Past Psychological History: Anxiety Smoking Status: Never smoker Past Alcohol Use History: None Reported Past Drug Use History: None Reported - Past Family History Sister(s) Family Medical History: Cancer Additional Family Medical History / Comment(s): lung cancer Father Family Medical History: Coronary Artery Disease (CAD) General Exam Limitations: no limitations General appearance: alert, in no apparent distress Head exam: Present: atraumatic, normocephalic, normal inspection Eye exam: Present: normal appearance, PERRL, EOMI. Absent: scleral icterus, conjunctival injection, periorbital swelling ENT exam: Present: normal exam, mucous membranes moist Neck exam: Present: normal inspection. Absent: tenderness, meningismus, lymphadenopathy Respiratory exam: Present: normal lung sounds bilaterally. Absent: respiratory distress, wheezes, rales, rhonchi, stridor Cardiovascular Exam: Present: regular rate, normal rhythm, normal heart sounds. Absent: systolic murmur, diastolic murmur, rubs, gallop, clicks GI/Abdominal exam: Present: soft, normal bowel sounds. Absent: distended, tenderness, guarding, rebound, rigid Extremities exam: Present: normal inspection, full ROM, normal capillary refill. Absent: tenderness, pedal edema, joint swelling, calf tenderness Back exam: Present: normal inspection Neurological exam: Present: alert, oriented X3, CN II-XII intact Psychiatric exam: Present: normal affect, normal mood Skin exam: Present: warm, dry, intact, normal color. Absent: rash Course Vital Signs 08/23/22 00:46 Temperature 98.2 F Pulse Rate 87 Respiratory 16 Rate Blood Pressure 126/77 O2 Sat by Pulse 98 Oximetry - Reevaluation(s) Reevaluation #1: 03/22/22 06:43 Medical record is reviewed Reevaluation #2: 03/22/22 06:43 Patient has adequate pain control Reevaluation #3: 03/22/22 06:43 Patient informed of results and questions answered Medical Decision Making - Medical Decision Making 37 female DF for evaluation patient presents today for nonspecific abdominal pain lab values CT scans were all negative and patient was discharged home - Lab Data Result diagrams: 03/22/22 03:37 03/22/22 03:37 Lab Results 03/22/22 03/22/22 Range/Units 03:37 03:37 WBC 11.0 H (3.8-10.6) k/uL RBC 4.96 (3.80-5.40) m/uL Hgb 14.4 (11.4-16.0) gm/dL Hct 46.0 (34.0-46.0) % MCV 92.9 (80.0-100.0) fL MCH 29.1 (25.0-35.0) pg MCHC 31.3 (31.0-37.0) g/dL RDW 12.8 (11.5-15.5) % Plt Count 213 (150-450) k/uL MPV 7.4 Neutrophils % 65 % Lymphocytes % 23 % Monocytes % 7 % Eosinophils % 4 % Basophils % 1 % Neutrophils # 7.1 (1.3-7.7) k/uL Lymphocytes # 2.5 (1.0-4.8) k/uL Monocytes # 0.7 (0-1.0) k/uL Eosinophils # 0.4 (0-0.7) k/uL Basophils # 0.1 (0-0.2) k/uL Sodium 141 (137-145) mmol/L Potassium 4.2 (3.5-5.1) mmol/L Chloride 105 (98-107) mmol/L Carbon Dioxide 26 (22-30) mmol/L Anion Gap 10 mmol/L BUN 18 H (7-17) mg/dL Creatinine 0.83 (0.52-1.04) mg/dL Est GFR (CKD-EPI)AfAm >90 (>60 ml/min/1.73 sqM) Est GFR (CKD-EPI)NonAf 79 (>60 ml/min/1.73 sqM) Glucose 95 (74-99) mg/dL Calcium 8.9 (8.4-10.2) mg/dL Total Bilirubin 0.4 (0.2-1.3) mg/dL AST 155 H (14-36) U/L ALT 81 H (4-34) U/L Alkaline Phosphatase 112 (38-126) U/L Total Protein 6.7 (6.3-8.2) g/dL Albumin 4.0 (3.5-5.0) g/dL Amylase 53 (30-110) U/L Lipase 174 (23-300) U/L - Radiology Data Radiology results: report reviewed (CT abdomen and pelvis negative for acute disease), image reviewed Disposition Clinical Impression: Abdominal pain Disposition: HOME SELF-CARE Condition: Good Instructions (If sedation given, give patient instructions): Abdominal Pain (ED) Is patient prescribed a controlled substance at d/c from ED?: No Referrals: Oh Mchugh DO [Primary Care Provider] - 1-2 days Time of Disposition: 04:10
[2022-03-22 03:46] LABS: Basophils # (A) 0.1 k/uL (0-0.2); Basophils % (A) 1 %; Eosinophils # (A) 0.4 k/uL (0-0.7); Eosinophils % (A) 4 %; HGB 14.4 gm/dL (11.4-16.0); Lymphocytes # (A) 2.5 k/uL (1.0-4.8); Lymphocytes % (A) 23 %; MCH 29.1 pg (25.0-35.0); MCHC 31.3 g/dL (31.0-37.0); MCV 92.9 fL (80.0-100.0); Mean Platelet Volume 7.4; Monocytes # (A) 0.7 k/uL (0-1.0); Monocytes % (A) 7 %; Neutrophils # (A) 7.1 k/uL (1.3-7.7); Neutrophils % (A) 65 %; Platelet Count 213 k/uL (150-450); RBC 4.96 m/uL (3.80-5.40); RDW 12.8 % (11.5-15.5)
[2022-03-22 04:00] LABS: ALT 81 U/L (4-34); AST 155 U/L (14-36); African American GFR (CKD) >90 (>60 ml/min/1.73 sqM); Alkaline Phosphatase 112 U/L (38-126); Amylase 53 U/L (30-110); Anion Gap 10 mmol/L; Blood Urea Nitrogen 18 mg/dL (7-17); Calcium 8.9 mg/dL (8.4-10.2); Carbon Dioxide 26 mmol/L (22-30); Chloride 105 mmol/L (98-107); Glucose 95 mg/dL (74-99); Lipase 174 U/L (23-300); Non-African American GFR(CKD) 79 (>60 ml/min/1.73 sqM); Potassium 4.2 mmol/L (3.5-5.1); Sodium 141 mmol/L (137-145); Total Bilirubin 0.4 mg/dL (0.2-1.3); Total Protein 6.7 g/dL (6.3-8.2)
--- NOTE | 2022-03-22 04:03 | CT ---
EXAMINATION TYPE: CT abdomen pelvis wo con DATE OF EXAM: 03/22/2022 COMPARISON: None HISTORY: pain CT DLP: 731.4 mGycm Automated exposure control for dose reduction was used. Images obtained from the diaphragm to the floor the pelvis with no contrast. Lung bases are clear. No pleural effusion. Heart size is normal. No pericardial effusion. Liver splee n pancreas gallbladder appear intact. The bile ducts are not dilated. Stomach is intact. There is no adrenal mass. Kidneys have normal size and contour. No hydronephrosis. Ureters are not di lated. No retroperitoneal adenopathy. The bladder distends smoothly. No inguinal hernia. No free fluid in the pelvis. Uterus is anteverted. No pelvic mass. No evidence of thickened appendix. The terminal ileum appears normal. There is no mesenteric edema. No ascites or free air. No sign of a bowel obstruction The lumbar vertebra appear intact. No compression fracture. The bony pelvis is intact. Hip joints are intact. IMPRESSION: No evidence of renal stone or obstruction. Ureters are not dilated. No evidence of thickened appendix . No acute abnormality.
== END 2022-03-22 04:36 | disposition home or self-care (01) ==
LOC: EC 00:36
DX: R10.9 Unspecified abdominal pain (principal); E11.9 Type 2 diabetes mellitus without complications; I10 Essential (primary) hypertension; K21.9 Gastro-esophageal reflux disease without esophagitis; Z79.83 Long term (current) use of bisphosphonates; Z88.8 Allergy status to other drugs, medicaments and biological substances; Z88.2 Allergy status to sulfonamides; Z88.6 Allergy status to analgesic agent
CPT/HCPCS: 36415; 80053; 82150; 83690; 85025; 74176; 99284; 96374; 96375; 96361; J2270; J2405; J1885

== ENCOUNTER → 2022-04-14 | Outpatient (CLI) | payer OTHER ==
[2022-04-14 11:51] VITALS: BP 113/76; PULSE 91; RESP 18; TEMP 98.7
--- NOTE | 2022-04-14 13:35 | P.PAINPG ---
PQRS Measure Charge Sheet Comment: A 57 yr old female with a history of severe and chronic low back pain secondary to lumbar degenerative disc diseases and lumbar spondylosis with facet arthropathy without myelopathy presents today for LBP. Pain level is currently at 5/10 in intensity, constant, lower back pain, crushing/pressure in character shooting towards . Pain is provoked 10/10 by BLEs. Pain is alleviated with PT in January 2022 x 6 wks, massage therapy 5 yrs ago, chiropractic treatments 5 yrs ago, heat, ice, meds (Lyrica, Flexeril, Voltaren tablets), topicals, laying supine, home guided exercising, repositioning and rest. Interventional pain procedures completed include BL SI injection, UGO L4-5. Patient is currently on Lyrica, Flexeril, Voltaren tablets Patient denies any side effects of the medication(s), denies excessive drowsiness or sleepiness, denies suicidal ideation and reports that the current pain medication is helping to control the pain and improve activities of daily living. Patient denies any motor or sensory deficits. Patient denies any fever or night sweats, denies any change in the bowel movements or urination. Physical Examination: -Constitutional: Cooperative. Not in acute distress . - Neurologic: Cranial nerve II to XII intact. No focal neurological deficits. - Psychatric: Alert & oriented x 3. Matching mood & appropriate affect. Judgment and insight intact. - Musculoskeletal: Cervical spine: Muscle bulk/ tone/ strength in the bilateral upper extremities normal Vertebral body tenderness to palpation over Spurling test positive Distraction test positive Facet loading test positive Thoracic spine Muscle bulk / tone/ strength in the bilateral paraspinal muscles normal Vertebral body tender to palpation over Facet loading test positive Lumbar spine: Motor bulk/ tone/ strength lower extremities , thigh and legs : 5/5 Deep tendon reflexes : Normal Knee Jerk. Normal Ankle Jerk . Vertebral body tenderness to palpation over Lumbar Facet Loading Test positive w jump reflex over BL L4-L5 < L5-S1 Straight Leg Raise: positive at 30 degrees right side/ left side Gaenslen's Test positive Sacral spine : Severe tenderness over the Sacroiliac joint: right side / left side Range of motion: Flexion of the lumbar spine <60 degrees Range of motion: Extension of the lumbar spine <20 degrees Gaenslen's Test positive Gabe's Test positive Denia test: positive right side / left side Thigh Thrust Test Sacral Thrust Test Assessment and plan: Chronic low back pain secondary to lumbar degenerative disc disease , lumbar spondylosis with facet arthropathy without myelopathy Recommendation of BL MBB of L4-L5, L5-S1 #1. May need a series of injections, up until RFA, for optimal pain relief. Risks, benefits of procedure discussed and pt verbalized understanding. Denies anticoagulant use or medical history of diabetes. All patient questions answered MAPS reviewed and it was appropriate. I have spent less than 30 minutes on patient care today. Dr Collins was available by phone for the evaluation of this patient. The time was used to review the medical records including relevant urine studies and Prescription history (MAPs), review of the available imaging, evaluation and examination of the patient, coordination of care with the medical staff and if applicable referring physicians, as well as creation of the medical record - Pain Location Bilateral Lower Back Non-Pharmacological Interventions: Elevation, Heat, Ice, Inactivity, Massage, Physical Therapy Pharmacological Interventions: Epidural, Medication, Prophylactic Medication, Topical Medication PQRS Narrative: Smoking Status Never smoker Hx Alcohol Use (MH) No Home Medications: Ambulatory Orders DULoxetine HCL [Cymbalta] 60 mg PO HS 03/17/21 Diclofenac Sodium [Voltaren] 75 mg PO BID 03/17/21 Omeprazole 20 mg PO DAILY 03/17/21 Pregabalin [Lyrica] 150 mg PO TID 03/17/21 lisinopriL [Prinivil] 10 mg PO DAILY 03/17/21 Acetaminophen Tab [Tylenol] 650 mg PO DAILY PRN 12/06/21 Cetirizine HCl [Zyrtec] 10 mg PO DAILY 12/06/21 Cyclobenzaprine [Flexeril] 10 mg PO BID 12/06/21 Controlled Substance Measures - Controlled Substance Measures Is patient prescribed a controlled substance at discharge?: No
== END ==
LOC: PNWHC3 11:10
PROVIDERS: ATTEND Specialist
DX: M51.36 Other intervertebral disc degeneration, lumbar region (principal); M47.816 Spondylosis without myelopathy or radiculopathy, lumbar region; G89.29 Other chronic pain; Z88.8 Allergy status to other drugs, medicaments and biological substances; Z88.2 Allergy status to sulfonamides
CPT/HCPCS: 99211

== ENCOUNTER → 2022-06-20 | Outpatient (CLI) | payer OTHER ==
[2022-06-20 14:20] VITALS: BP 113/76; PULSE 110; RESP 18; TEMP 97.9
--- NOTE | 2022-06-20 14:53 | P.PAINPG ---
PQRS Measure Charge Sheet Comment: A 57 yr old female with a history of severe and chronic low back pain secondary to lumbar DDD and spondylosis with facet arthropathy without myelopathy presents today for SI joint dysfunction. Pain level is currently at 7/10 in intensity, constant, localized in the lower lumbar spine where it meets the tailbone, sharp in charcetr w shooting towards back of her legs and feet. Pain is provoked by walking/ standing for periods of 15 min or more. Pain is alleviated with PT x 6 wks in December 2021, massage therapy 3 yrs ago, chiropractic treatments 3 yrs ago, heat, ice, medications (Flexeril, Voltaren gel, Lyrica), laying on her side, repositioning and rest. Interventional pain procedures completed include BL RFA L3-L5 Patient is currently on Lyrica, Flexeril, Voltaren gel Patient denies any side effects of the medication(s), denies excessive drowsiness or sleepiness, denies suicidal ideation and reports that the current pain medication is helping to control the pain and improve activities of daily living. Patient denies any motor or sensory deficits. Patient denies any fever or night sweats, denies any change in the bowel movements or urination. Physical Examination: -Constitutional: Cooperative. Not in acute distress . - Neurologic: Cranial nerve II to XII intact. No focal neurological defic its. - Psychatric: Alert & oriented x 3. Matching mood & appropriate affect. Judgment and insight intact. - Musculoskeletal: Cervical spine: Muscle bulk/ tone/ strength in the bilateral upper extremities normal Vertebral body tenderness to palpation over Spurling test positive Distraction test positive Facet loading test positive Thoracic spine Muscle bulk / tone/ strength in the bilateral paraspinal muscles normal Vertebral body tender to palpation over Facet loading test positive Lumbar spine: Motor bulk/ tone/ strength lower extremities , thigh and legs : 5/5 Deep tendon reflexes : Normal Knee Jerk. Normal Ankle Jerk . Vertebral body tenderness to palpation over Lumbar Facet Loading Test positive Straight Leg Raise: positive at 30 degrees right side/ left side Gaenslen's Test positive Sacral spine : Severe tenderness over the Sacroiliac joint: right side / left side Range of motion: Flexion of the lumbar spine <60 degrees Range of motion: Extension of the lumbar spine <20 degrees Gaenslen's Test positive Denia test: positive right side / left side Thigh Thrust Test Sacral Thrust Test Assessment and plan: Chronic low back pain secondary to lumbar degenerative disc disease, spondylosis with facet arthropathy without myelopathy Recommendation of medication management. Pt will have BL RFA L3-L5 to be processed. Pt's last BL RFA L3-L5 was in Sep 2021. Diclofenac gel 3% QID for pain. Disp 1 tube w 1 RF. Risks, benefits of medication discussed and pt verbalized understanding. Denies anticoagulant use or medical history of diabetes. All patient questions answered I have spent less than 30 minutes on patient care today. Dr Collins was available by phone for the evaluation of this patient. The time was used to review the medical records including relevant urine studies and Prescription history (MAPs), review of the available imaging, evaluation and examination of the patient, coordination of care with the medical staff and if applicable referring physicians, as well as creation of the medical record - Pain Location Bilateral Lower Back Pharmacological Interventions: Epidural, PRN Medication, Scheduled Medication, Topical Medication PQRS Narrative: Smoking Status Never smoker Hx Alcohol Use (MH) No Home Medications: Ambulatory Orders DULoxetine HCL [Cymbalta] 60 mg PO HS 03/17/21 Diclofenac Sodium [Voltaren] 75 mg PO BID 03/17/21 Omeprazole 20 mg PO DAILY 03/17/21 Pregabalin [Lyrica] 150 mg PO TID 03/17/21 lisinopriL [Prinivil] 10 mg PO DAILY 03/17/21 Acetaminophen Tab [Tylenol] 650 mg PO DAILY PRN 12/06/21 Cetirizine HCl [Zyrtec] 10 mg PO DAILY 12/06/21 Cyclobenzaprine [Flexeril] 10 mg PO BID 12/06/21 Diclofenac Sodium Gel [Voltaren Gel] 2 gm TOPICAL QID 30 Days #100 gm 06/20/22 Controlled Substance Measures - Controlled Substance Measures Is patient prescribed a controlled substance at discharge?: No
== END ==
LOC: PNWHC3 13:52
PROVIDERS: ATTEND Specialist
DX: M47.816 Spondylosis without myelopathy or radiculopathy, lumbar region (principal); M51.36 Other intervertebral disc degeneration, lumbar region; G89.29 Other chronic pain; Z88.2 Allergy status to sulfonamides; Z88.8 Allergy status to other drugs, medicaments and biological substances
CPT/HCPCS: 99211

== ENCOUNTER 2022-07-12 15:09 | Observation (INO) | payer MEDICARE, OTHER ==
[2022-07-12 16:15] LABS: Basophils # (A) 0.1 k/uL (0-0.2); Basophils % (A) 1 %; Eosinophils # (A) 0.3 k/uL (0-0.7); Eosinophils % (A) 3 %; HCT 42.7 % (34.0-46.0); HGB 14.4 gm/dL (11.4-16.0); Lymphocytes # (A) 2.4 k/uL (1.0-4.8); Lymphocytes % (A) 25 %; MCHC 33.6 g/dL (31.0-37.0); MCV 89.3 fL (80.0-100.0); Mean Platelet Volume 7.5; Monocytes # (A) 0.7 k/uL (0-1.0); Monocytes % (A) 7 %; Neutrophils % (A) 62 %; Platelet Count 219 k/uL (150-450); RBC 4.78 m/uL (3.80-5.40); RDW 12.3 % (11.5-15.5); WBC 9.6 k/uL (3.8-10.6)
[2022-07-12 16:25] LABS: Partial Thromboplastin Time 24.2 sec (22.0-30.0); Prothrombin Time 10.3 sec (9.0-12.0)
--- NOTE | 2022-07-12 16:27 | XR ---
EXAMINATION TYPE: XR chest 2V DATE OF EXAM: 07/12/2022 COMPARISON: NONE HISTORY: Chest pain. TECHNIQUE: Frontal and lateral views of the chest are obtained. FINDINGS: There is no focal air space opacity, pleural effusion, or pneumothorax seen. The cardiac silhouette size is mildly enlarged. Overlying bra strap is present. Mild to moderate multilevel spur ring in the spine is seen. IMPRESSION: Mild Cardiomegaly without acute pulmonary process.
[2022-07-12 16:32] LABS: ALT 74 U/L (4-34); AST 84 U/L (14-36); African American GFR (CKD) >90 (>60 ml/min/1.73 sqM); Alkaline Phosphatase 90 U/L (38-126); Anion Gap 8 mmol/L; Blood Urea Nitrogen 14 mg/dL (7-17); Calcium 8.6 mg/dL (8.4-10.2); Carbon Dioxide 25 mmol/L (22-30); Chloride 110 mmol/L (98-107); Glucose 98 mg/dL (74-99); Magnesium 2.1 mg/dL (1.6-2.3); Non-African American GFR(CKD) >90 (>60 ml/min/1.73 sqM); Potassium 3.9 mmol/L (3.5-5.1); Sodium 143 mmol/L (137-145); Total Bilirubin 0.6 mg/dL (0.2-1.3); Total Protein 6.9 g/dL (6.3-8.2)
--- NOTE | 2022-07-12 16:45 | ED ---
General Adult HPI - General Chief complaint: Chest Pain Stated complaint: Chest Pain Time Seen by Provider: 07/12/22 15:39 Source: patient, RN notes reviewed, old records reviewed Mode of arrival: wheelchair Limitations: no limitations - History of Present Illness Initial comments: This is a 57-year-old female presents emergency Department complaining of chest pain radiating down her left arm and shortness of breath this occurs per patient states it happened just a last about 2 hours and it came back again today and is currently still there but feeling a little better than it did earlier. Patient denies any diaphoretic episodes. Patient denies any nausea. Patient denies lightheadedness or dizziness. Patient states the pain feels a little sharper also some achiness to it. Patient states she does have a history of high blood pressure. Patient states she had a stress test about 5 years ago that was normal. Patient denies any recent fever chills or cough. Patient denies any abdominal pain. Patient denies any nausea vomiting diarrhea. - Related Data Home Medications Medication Instructions Recorded Confirmed DULoxetine HCL [Cymbalta] 60 mg PO HS 03/17/21 06/20/22 Diclofenac Sodium [Voltaren] 75 mg PO BID 03/17/21 06/20/22 Omeprazole 20 mg PO DAILY 03/17/21 06/20/22 Pregabalin [Lyrica] 150 mg PO TID 03/17/21 06/20/22 lisinopriL [Prinivil] 10 mg PO DAILY 03/17/21 06/20/22 Acetaminophen Tab [Tylenol] 650 mg PO DAILY PRN 12/06/21 06/20/22 Cetirizine HCl [Zyrtec] 10 mg PO DAILY 12/06/21 06/20/22 Cyclobenzaprine [Flexeril] 10 mg PO BID 12/06/21 06/20/22 Previous Rx's Medication Instructions Recorded Diclofenac Sodium Gel [Voltaren 2 gm TOPICAL QID 30 Days #100 gm 06/20/22 Gel] Allergies Allergy/AdvReac Type Severity Reaction Status Date / Time citalopram [From Celexa] Allergy Rash/Hives Verified 07/12/22 15:14 gabapentin [From Neurontin] Allergy Rash/Hives Verified 07/12/22 15:14 quetiapine [From Seroquel] Allergy Rash/Hives Verified 07/12/22 15:14 Sulfa (Sulfonamide Allergy Rash/Hives Verified 07/12/22 15:14 Antibiotics) Review of Systems ROS Statement: Those systems with pertinent positive or pertinent negative responses have been documented in the HPI. ROS Other: All systems not noted in ROS Statement are negative. Past Medical History Past Medical History: Diabetes Mellitus, GERD/Reflux, Hypertension, Musculoskeletal Disorder, Skin Disorder Additional Past Medical History / Comment(s): Covid Jun,Spondylolisthesis L4 5 lower back pain, bulging disc to back, spinal stenosis; sl NT feet. Hx migraines, chronic bronchitis, rosacea. "Borderline DM, watching diet.", pt states right leg gave out and she fell and she has some bruises. History of Any Multi-Drug Resistant Organisms: MRSA Date of last positivie culture/infection: 2017 MDRO Source:: back Past Surgical History: Appendectomy, Section, Tonsillectomy Additional Past Surgical History / Comment(s): Pain procedure Past Anesthesia/Blood Transfusion Reactions: Motion Sickness Past Psychological History: Anxiety Smoking Status: Never smoker - Past Family History Sister(s) Family Medical History: Cancer Additional Family Medical History / Comment(s): lung cancer Father Family Medical History: Coronary Artery Disease (CAD) General Exam - General Exam Comments Initial Comments: GENERAL: Patient is well-developed and well-nourished. Patient is nontoxic and well- hydrated and is in mild distress. ENT: Neck is soft and supple. No significant lymphadenopathy is noted. Oropharynx is clear. Moist mucous membranes. Neck has full range of motion without eliciting any pain. EYES: The sclera were anicteric and conjunctiva were pink and moist. Extraocular movements were intact and pupils were equal round and reactive to light. Eyelids were unremarkable. PULMONARY: Unlabored respirations. Good breath sounds bilaterally. No audible rales rhonchi or wheezing was noted. CARDIOVASCULAR: There is a regular rate and rhythm without any murmurs gallops or rubs. ABDOMEN: Soft and nontender with normal bowel sounds. SKIN: Skin is clear with no lesions or rashes and otherwise unremarkable. NEUROLOGIC: Patient is alert and oriented x3. Cranial nerves II through XII are grossly intact. Motor and sensory are also intact. Normal speech, volume and content. Symmetrical smile. MUSCULOSKELETAL: Normal extremities with adequate strength and full range of motion. LYMPHATICS: No significant lymphadenopathy is noted PSYCHIATRIC: Normal psychiatric evaluation. Limitations: no limitations Course Vital Signs 07/12/22 15:11 Temperature 97.9 F Pulse Rate 97 Respiratory 20 Rate Blood Pressure 138/86 O2 Sat by Pulse 98 Oximetry Medical Decision Making - Medical Decision Making EKG was interpreted by me EKG shows sinus rhythm at 91 bpm AR interval is 171 QRS is 90 QT interval 356 QTC is 405. Patient's EKG shows no ST segment elevation or depression. Patient was given aspirin and Nitropaste emergency department. Chest x-ray was interpreted by me. Chest x-ray shows no infiltrate no pleural effusions. I spoke with sounds physician's some physicians agreed to admit the patient admitted the patient I consult cardiology - Lab Data Result diagrams: 07/12/22 15:57 07/12/22 15:57 Lab Results 07/12/22 07/12/22 07/12/22 Range/Units 15:57 15:57 15:57 WBC 9.6 (3.8-10.6) k/uL RBC 4.78 (3.80-5.40) m/uL Hgb 14.4 (11.4-16.0) gm/dL Hct 42.7 (34.0-46.0) % MCV 89.3 (80.0-100.0) fL MCH 30.0 (25.0-35.0) pg MCHC 33.6 (31.0-37.0) g/dL RDW 12.3 (11.5-15.5) % Plt Count 219 (150-450) k/uL MPV 7.5 Neutrophils % 62 % Lymphocytes % 25 % Monocytes % 7 % Eosinophils % 3 % Basophils % 1 % Neutrophils # 6.0 (1.3-7.7) k/uL Lymphocytes # 2.4 (1.0-4.8) k/uL Monocytes # 0.7 (0-1.0) k/uL Eosinophils # 0.3 (0-0.7) k/uL Basophils # 0.1 (0-0.2) k/uL PT 10.3 (9.0-12.0) sec INR 1.0 (<1.2) APTT 24.2 (22.0-30.0) sec Sodium 143 (137-145) mmol/L Potassium 3.9 (3.5-5.1) mmol/L Chloride 110 H (98-107) mmol/L Carbon Dioxide 25 (22-30) mmol/L Anion Gap 8 mmol/L BUN 14 (7-17) mg/dL Creatinine 0.71 (0.52-1.04) mg/dL Est GFR (CKD-EPI)AfAm >90 (>60 ml/min/1.73 sqM) Est GFR (CKD-EPI)NonAf >90 (>60 ml/min/1.73 sqM) Glucose 98 (74-99) mg/dL Calcium 8.6 (8.4-10.2) mg/dL Magnesium 2.1 (1.6-2.3) mg/dL Total Bilirubin 0.6 (0.2-1.3) mg/dL AST 84 H (14-36) U/L ALT 74 H (4-34) U/L Alkaline Phosphatase 90 (38-126) U/L Troponin I (0.000-0.034) ng/mL Total Protein 6.9 (6.3-8.2) g/dL Albumin 4.0 (3.5-5.0) g/dL 07/12/22 Range/Units 15:57 WBC (3.8-10.6) k/uL RBC (3.80-5.40) m/uL Hgb (11.4-16.0) gm/dL Hct (34.0-46.0) % MCV (80.0-100.0) fL MCH (25.0-35.0) pg MCHC (31.0-37.0) g/dL RDW (11.5-15.5) % Plt Count (150-450) k/uL MPV Neutrophils % % Lymphocytes % % Monocytes % % Eosinophils % % Basophils % % Neutrophils # (1.3-7.7) k/uL Lymphocytes # (1.0-4.8) k/uL Monocytes # (0-1.0) k/uL Eosinophils # (0-0.7) k/uL Basophils # (0-0.2) k/uL PT (9.0-12.0) sec INR (<1.2) APTT (22.0-30.0) sec Sodium (137-145) mmol/L Potassium (3.5-5.1) mmol/L Chloride (98-107) mmol/L Carbon Dioxide (22-30) mmol/L Anion Gap mmol/L BUN (7-17) mg/dL Creatinine (0.52-1.04) mg/dL Est GFR (CKD-EPI)AfAm (>60 ml/min/1.73 sqM) Est GFR (CKD-EPI)NonAf (>60 ml/min/1.73 sqM) Glucose (74-99) mg/dL Calcium (8.4-10.2) mg/dL Magnesium (1.6-2.3) mg/dL Total Bilirubin (0.2-1.3) mg/dL AST (14-36) U/L ALT (4-34) U/L Alkaline Phosphatase (38-126) U/L Troponin I <0.012 (0.000-0.034) ng/mL Total Protein (6.3-8.2) g/dL Albumin (3.5-5.0) g/dL Disposition Clinical Impression: Chest pain Disposition: ADMITTED IP TO THIS [facility] Referrals: Darrel Vincent DO [Primary Care Provider] - 1-2 days Time of Disposition: 16:48
[2022-07-12] MEDS ORDERED: ASPIRIN 81 MG PO STA (16:48)
[2022-07-12] MEDS ORDERED: NITROGLYCERIN SL TABS 0.4 MG TAB SUBLINGUAL PRN (16:48)
[2022-07-12] MEDS ORDERED: DICLOFENAC SODIUM GEL 100 GM TUBE TOPICAL PRN (17:17)
--- NOTE | 2022-07-12 17:23 | P.HPIM ---
History of Present Illness H&P Date: 07/12/22 Chief Complaint: Chest pain Patient is a 57-year-old female with a past medical history of hypertension, anxiety, chronic back pain who presents to the ED with chest pain. Patient states that yesterday night when she is lying in bed she had an episode of sharp chest pain that was left-sided and radiated to her left arm. She denied any associated symptoms such as diaphoresis palpitations or lightheadedness. Patient states that today she again had another episode while she was sitting on the chair and this prompted her to come to the ED to get checked out. Patient currently states that her chest pain is a 3 out of 10. Patient will be admitted for further evaluation by cardiology. Review of Systems 10 ROS reviewed and are negative except as noted in HPI Past Medical History Past Medical History: Diabetes Mellitus, GERD/Reflux, Hypertension, Musculoskeletal Disorder, Skin Disorder Additional Past Medical History / Comment(s): Covid Jun,Spondylolisthesis L4 5 lower back pain, bulging disc to back, spinal stenosis; sl NT feet. Hx migraines, chronic bronchitis, rosacea. "Borderline DM, watching diet.", pt st ates right leg gave out and she fell and she has some bruises. History of Any Multi-Drug Resistant Organisms: MRSA Date of last positivie culture/infection: 2017 MDRO Source:: back Past Surgical History: Appendectomy, Section, Tonsillectomy Additional Past Surgical History / Comment(s): Pain procedure Past Anesthesia/Blood Transfusion Reactions: Motion Sickness Past Psychological History: Anxiety Smoking Status: Never smoker - Past Family History Sister(s) Family Medical History: Cancer Additional Family Medical History / Comment(s): lung cancer Father Family Medical History: Coronary Artery Disease (CAD) Medications and Allergies Home Medications Medication Instructions Recorded Confirmed Type DULoxetine HCL [Cymbalta] 60 mg PO HS 03/17/21 07/12/22 History Diclofenac Sodium [Voltaren] 75 mg PO BID 03/17/21 07/12/22 History Omeprazole 20 mg PO DAILY 03/17/21 07/12/22 History Pregabalin [Lyrica] 150 mg PO TID 03/17/21 07/12/22 History lisinopriL [Prinivil] 10 mg PO DAILY 03/17/21 07/12/22 History Cyclobenzaprine [Flexeril] 10 mg PO TID 12/06/21 07/12/22 History Diclofenac Sodium Gel [Voltaren 2 - 3 gm TOPICAL QID PRN 07/12/22 07/12/22 History Gel] Allergies Allergy/AdvReac Type Severity Reaction Status Date / Time citalopram [From Celexa] Allergy Rash/Hives Verified 07/12/22 17:16 gabapentin [From Neurontin] Allergy Rash/Hives Verified 07/12/22 17:16 quetiapine [From Seroquel] Allergy Rash/Hives Verified 07/12/22 17:16 Sulfa (Sulfonamide Allergy Rash/Hives Verified 07/12/22 17:16 Antibiotics) Physical Exam Osteopathic Statement: *. No significant issues noted on an osteopathic structural exam other than those noted in the History and Physical/Consult. Vitals: Vital Signs Temp Pulse Resp BP Pulse Ox 07/12/22 15:11 97.9 F 97 20 138/86 98 Intake and Output 07/12/22 07/12/22 07/12/22 06:59 14:59 22:59 Other: Weight 88.904 kg General: [Alert and oriented, well nourished, no acute distress]. Eye: [PERRL, EOMI, normal conjunctiva]. HENT: [Normocephalic, clear tympanic membranes, normal hearing, moist oral mucosa, no scleral icterus, no sinus tenderness]. Neck: [Supple, non-tender, no carotid bruits, no JVD, no lymphadenopathy]. Lungs: [Clear to auscultation and percussion, non-labored respiration]. Heart: [Normal rate, regular rhythm, no murmur, gallop or edema]. Abdomen: [Soft, non-tender, non-distended, normal bowel sounds, no masses]. Musculoskeletal: [Normal range of motion and strength, no tenderness or swelling]. Skin: [Skin is warm, dry and pink, no rashes or lesions]. Neurologic: [Awake, alert, and oriented X3, CN II-XII intact]. Psychiatric: [Cooperative, appropriate mood and affect]. Results CBC & Chem 7: 07/12/22 15:57 07/12/22 15:57 Labs: Abnormal Lab Results - Last 24 Hours (Table) 07/12/22 Range/Units 15:57 Chloride 110 H (98-107) mmol/L AST 84 H (14-36) U/L ALT 74 H (4-34) U/L Assessment and Plan Assessment: Atypical chest pain First troponin is negative and EKG without ischemic changes Trend troponin 2 Check echocardiogram Cardiology consult Hypertension Resume lisinopril Chronic back pain Resume pain meds and follow-up with pain management outpatient Anxiety Resume Cymbalta GERD Resume PPI CODE STATUS:full code DPOA: Patient would like her children to make decisions for her if she lacks capacity DVT prophylaxis: Lovenox Discussed with: Patient, ER, rn Anticipated length of stay < than [address]: home A total of 50 minutes was spent on the care of this complex patient more than 50% of the time was spent in counseling and care coordination.
[2022-07-12] MEDS: NITROGLYCERIN OINT 1 INCH/GM PACKET TOPICAL SCH ×2 (17:40→23:22)
[2022-07-12] MEDS: ENOXAPARIN 40 MG/0.4 ML SYRINGE SQ SCH (17:43)
[2022-07-12] MEDS: DULoxetine HCL 60 MG CAPSULE.DR PO SCH (21:57)
[2022-07-12] MEDS: CYCLOBENZAPRINE 10 MG TAB PO SCH (21:57)
[2022-07-12] MEDS: PREGABALIN 75 MG CAP PO SCH (21:57)
[2022-07-12] MEDS: ETODOLAC 400 MG TAB PO SCH (21:57)
[2022-07-13] MEDS: NITROGLYCERIN OINT 1 INCH/GM PACKET TOPICAL SCH ×3 (03:49→17:37)
[2022-07-13] MEDS: PANTOPRAZOLE 40 MG TABLET PO SCH (06:43)
--- NOTE | 2022-07-13 09:31 | P.CRDCN ---
History of Present Illness Consult date: 07/13/22 Consult reason: chest pain History of present illness: History of present illness: This is a 57-year-old female with no past cardiac history. She has a past mental history of hypertension, gastroesophageal reflux disease and chronic lumbar back pain. She reports a stress test was done at [facility] approximate 5-6 years ago was negative. Patient presented due to chest pain that took her breath away with radiation to the left arm along with numbness. She still has some pain and the left upper arm and left clavicle and shoulder area. Pain is been going on for 2 days. She denies any lightheadedness or dizziness, no fever or chills, no cough or sputum production. EKG is sinus rhythm with no acute ST changes Chest x-ray shows mild cardiomegaly without acute process. CBC unremarkable. Troponins negative 3. AST 84 and ALT 74, chloride 110 otherwise CMP within normal limits Review Of Systems: At the time of my evaluation Constitutional: No fever, no chills. No weakness, fatigue or lethargy. EENT: No headache. No dizziness. Lungs: No shortness of breath, cough, no sputum production. No wheezing. Cardiovascular: Upper left chest pain/clavicle discomfort, no lower extremity edema. No palpitations. No paroxysmal nocturnal dyspnea. No orthopnea. No lightheadedness or dizziness. No syncopal episodes. Abdominal: No abdominal pain. No nausea, vomiting. No diarrhea. No constipation. No bloody or tarry stools.. No loss of appetite. Genitourinary: No dysuria.. No urinary retention. Musculoskeletal: No myalgias. No muscle weakness, no gait dysfunction, no frequent falls. No back pain. No neck pain. Left upper arm discomfort Integumentary: No wounds. No rash or pruritus. No unusual bruising. Neurologic: No aphasia. No facial droop. No change in mentation. No head injury. No headache. No paralysis. No paresthesia. Psychiatric: No depression. No anxiety. Endocrine: No abnormal blood sugars. Physical examination: Gen: This is an obese 57-year-old female. She is resting in bed and appears to be comfortable and in no acute distress. VS: reviewed HEENT: Head is atraumatic, normocephalic. Pupils equal, round. Sclerae is anicteric. NECK: Supple. No JVD. LUNGS: Clear to auscultation. No wheezes or rhonchi. No intercostal retractions. HEART: Regular rate and rhythm. No murmur. Mild tenderness to the left upper chest region ABDOMEN: Soft. No masses. No tenderness. EXTREMITIES: No pedal edema. No calf tenderness. NEUROLOGICAL: Patient is awake, alert and oriented x3. Assessment: Chest pain, acute coronary syndrome ruled out Hypertension Gastroesophageal reflux disease Chronic lumbar back pain Plan: Obtain exercise stress echocardiogram. Patient believes she will be able to walk on the treadmill despite lumbar pain Obtain 2-D echocardiogram and Doppler study to assess cardiac structure and function Further recommendations to follow based upon clinical course If 2-D echocardiogram and exercise stress echocardiogram are within normal limits, patient is cleared for discharge home from cardiology and may follow up in the office in 2-3 weeks Thank you kindly for this consultation. Nurse practitioner note has been reviewed, I agree with documented findings and plan of care. Patient was seen and examined. Past Medical History Past Medical History: Diabetes Mellitus, GERD/Reflux, Hypertension, Musculoskeletal Disorder, Skin Disorder Additional Past Medical History / Comment(s): Covid Jun,Spondylolisthesis L4 5 lower back pain, bulging disc to back, spinal stenosis; sl NT feet. Hx migraines, chronic bronchitis, rosacea. "Borderline DM, watching diet.", pt states right leg gave out and she fell and she has some bruises. History of Any Multi-Drug Resistant Organisms: MRSA Date of last positivie culture/infection: 2017 MDRO Source:: back Past Surgical History: Appendectomy, Section, Tonsillectomy Additional Past Surgical History / Comment(s): Pain procedure Past Anesthesia/Blood Transfusion Reactions: Motion Sickness Past Psychological History: Anxiety Additional Psychological History / Comment(s): claustrophobic w/ MRI Smoking Status: Never smoker Past Alcohol Use History: None Reported Past Drug Use History: None Reported - Past Family History Sister(s) Family Medical History: Cancer Additional Family Medical History / Comment(s): lung cancer Father Family Medical History: Coronary Artery Disease (CAD) Medications and Allergies Home Medications Medication Instructions Recorded Confirmed Type DULoxetine HCL [Cymbalta] 60 mg PO HS 03/17/21 07/12/22 History Diclofenac Sodium [Voltaren] 75 mg PO BID 03/17/21 07/12/22 History Omeprazole 20 mg PO DAILY 03/17/21 07/12/22 History Pregabalin [Lyrica] 150 mg PO TID 03/17/21 07/12/22 History lisinopriL [Prinivil] 10 mg PO DAILY 03/17/21 07/12/22 History Cyclobenzaprine [Flexeril] 10 mg PO TID 12/06/21 07/12/22 History Diclofenac Sodium Gel [Voltaren 2 - 3 gm TOPICAL QID PRN 07/12/22 07/12/22 History Gel] Allergies Allergy/AdvReac Type Severity Reaction Status Date / Time citalopram [From Celexa] Allergy Rash/Hives Verified 07/12/22 17:16 gabapentin [From Neurontin] Allergy Rash/Hives Verified 07/12/22 17:16 quetiapine [From Seroquel] Allergy Rash/Hives Verified 07/12/22 17:16 Sulfa (Sulfonamide Allergy Rash/Hives Verified 07/12/22 17:16 Antibiotics) Physical Exam Vitals: Vital Signs Temp Pulse Pulse Resp BP BP Pulse Ox 07/13/22 02:47 98.0 F 80 18 96/57 96 07/12/22 20:16 96 07/12/22 20:00 89 19 07/12/22 19:24 98.0 F 89 19 119/74 99 07/12/22 18:44 79 22 118/76 99 07/12/22 17:37 80 18 111/76 96 07/12/22 15:11 97.9 F 97 20 138/86 98 Intake and Output 07/12/22 07/13/22 07/13/22 22:59 06:59 14:59 Intake Total 500 Balance 500 Intake: Oral 500 Other: Voiding Method Toilet # Voids 2 Weight 88.904 kg 90 kg Results 07/12/22 15:57 07/12/22 15:57 Cardiac Enzymes 07/12/22 07/12/22 07/12/22 Range/Units 15:57 15:57 17:23 AST 84 H (14-36) U/L Troponin I <0.012 <0.012 (0.000-0.034) ng/mL 07/12/22 Range/Units 20:35 AST (14-36) U/L Troponin I <0.012 (0.000-0.034) ng/mL Coagulation 07/12/22 Range/Units 15:57 PT 10.3 (9.0-12.0) sec APTT 24.2 (22.0-30.0) sec CBC 07/12/22 Range/Units 15:57 WBC 9.6 (3.8-10.6) k/uL RBC 4.78 (3.80-5.40) m/uL Hgb 14.4 (11.4-16.0) gm/dL Hct 42.7 (34.0-46.0) % Plt Count 219 (150-450) k/uL Comprehensive Metabolic Panel 07/12/22 Range/Units 15:57 Sodium 143 (137-145) mmol/L Potassium 3.9 (3.5-5.1) mmol/L Chloride 110 H (98-107) mmol/L Carbon Dioxide 25 (22-30) mmol/L BUN 14 (7-17) mg/dL Creatinine 0.71 (0.52-1.04) mg/dL Glucose 98 (74-99) mg/dL Calcium 8.6 (8.4-10.2) mg/dL AST 84 H (14-36) U/L ALT 74 H (4-34) U/L Alkaline Phosphatase 90 (38-126) U/L Total Protein 6.9 (6.3-8.2) g/dL Albumin 4.0 (3.5-5.0) g/dL Current Medications Generic Name Dose Route Start Last Admin Trade Name Freq PRN Reason Stop Dose Admin Aspirin 325 mg 07/13/22 09:00 Aspirin 325 Mg Tab PO DAILY [facility] Cyclobenzaprine HCl 10 mg 07/12/22 22:00 07/12/22 21:57 Cyclobenzaprine 10 Mg Tab PO 10 mg TID CAIO Administration Diclofenac Sodium 2 gm 07/12/22 17:17 Diclofenac Sodium Gel 100 Gm Tube TOPICAL QID PRN Pain Protocol Duloxetine HCl 60 mg 07/12/22 21:00 07/12/22 21:57 Duloxetine Hcl 60 Mg Capsule.Dr PO 60 mg HS CAIO Administration Enoxaparin Sodium 40 mg 07/12/22 18:00 07/12/22 17:43 Enoxaparin 40 Mg/0.4 Ml Syringe SQ Not Given Q24H [facility] Etodolac 400 mg 07/12/22 21:00 07/12/22 21:57 Etodolac 400 Mg Tab PO 400 mg BID [facility] Administration Lisinopril 10 mg 07/13/22 09:00 Lisinopril 10 Mg Tab PO DAILY [facility] Nitroglycerin 0.4 mg 07/12/22 16:48 Nitroglycerin Sl Tabs 0.4 Mg Tab SUBLINGUAL Q5M PRN Chest Pain Nitroglycerin 1 inch 07/12/22 18:00 07/13/22 03:49 Nitroglycerin Oint 1 Inch/Gm Packet TOPICAL 1 inch Q6HR [facility] Administration Pantoprazole Sodium 40 mg 07/13/22 07:30 07/13/22 06:43 Pantoprazole 40 Mg Tablet PO 40 mg DAILY@0730 [facility] Administration Pregabalin 150 mg 07/12/22 22:00 07/12/22 21:57 Pregabalin 75 Mg Cap PO 150 mg TID [facility] Administration Intake and Output 07/12/22 07/13/22 07/13/22 22:59 06:59 14:59 Intake Total 500 Balance 500 Intake: Oral 500 Other: Voiding Method Toilet # Voids 2 Weight 88.904 kg 90 kg 07/12/22 15:57 07/12/22 15:57
[2022-07-13] MEDS: PREGABALIN 75 MG CAP PO SCH ×3 (10:48→21:32)
[2022-07-13] MEDS: ASPIRIN 325 MG TAB PO SCH (10:52)
[2022-07-13] MEDS: ETODOLAC 400 MG TAB PO SCH ×2 (10:52→21:32)
[2022-07-13 10:55] LABS: Chol/HDL Ratio 5.23 Ratio; LDL Cholesterol,Calculated 122.1 mg/dL (0.0-131.0)
--- NOTE | 2022-07-13 13:28 | P.CN ---
Psychiatric Consult - . Consult date: 07/13/22 Consult:: 07/13/22 13:26 IDENTIFYING DATA: This patient is a , retired, 57 year old female who presented to the hospital on 07/12/2022 with a chief complaint of chest pain. HISTORY OF PRESENT ILLNESS: The patient presented to the hospital on 07/12/2022 with chest pain. Work up included troponins, EKG, and chest XR. Tropoinins were negative and mild cardiomegaly was noted on X-ray. EKG revealed NSR with possible anterior infarct. QTc 464 ms. Psychiatry was consulted for evaluation of depression and anxiety. The patient reports she was having an argument about the upcoming hol with her mother and shortly after began to experience chest pain and radiating numbness along her left arm. Further exacerbating the patient's stressors include financial stressors as well as the first anniversary of the passing of her Roddy. She expresses she has been crying every other week and does endorse low mood and elevated anxiety. She is however denying any suicidal or homicidal ideation, intention, and/or plan. She denies any previous attempts at suicide. She is currently denying any current symptoms of depression. She denies any changes in appetite, sleep, or psychomotor slowing. She does endorse mild anhedonia. She does report a history of depression however denies any significant history of bipolar symptoms. She reports no history of auditory or visual hallucinations. She reports no paranoia or other delusions. The patient is prescribed cymbalta for neuropathic pain and reports she did not start this medication for depression. She denies any other psychiatric pathology. She reports no history of trauma. She states she has good support from her son. PAST PSYCHIATRIC HISTORY: Patient has a history of depression. She is prescribed cymbalta for neuropathic pain. She has a reported history of trialing citalopram and seroquel. Patient denies any previous psychiatric hospitalizations. Patient denies any psychiatric outpatient follow-up. Patient denies any history of suicide attempts in the past. PAST MEDICAL HISTORY: Past Medical History: Diabetes Mellitus, GERD/Reflux, Hypertension, Musculoskeletal Disorder, Skin Disorder Additional Past Medical History / Comment(s): Covid Jun,Spondylolisthesis L4 5 lower back pain, bulging disc to back, spinal stenosis; sl NT feet. Hx migraines, chronic bronchitis, rosacea. "Borderline DM, watching diet.", pt states right leg gave out and she fell and she has some bruises. History of Any Multi-Drug Resistant Organisms: MRSA Date of last positivie culture/infection: 2017 MDRO Source:: back Past Surgical History: Appendectomy, Section, Tonsillectomy Additional Past Surgical History / Comment(s): Pain procedure Past Anesthesia/Blood Transfusion Reactions: Motion Sickness Past Psychological History: Anxiety Smoking Status: Never smoker ALLERGIES: Citalopram, gabapentin, quetiapine, sulfa CHEMICAL DEPENDENCY HISTORY: Patient denies any tobacco, alcohol, marijuana, or illicit drug use. FAMILY PSYCHIATRIC/SUBSTANCE USE HISTORY: No reported family history. SOCIAL HISTORY: Patient is after the passing of her Roddy approximately a year ago by stroke. They were for 34 years. She has 3 children and 2 grandchildren. She lives with her son and 4 dogs. She is retired and receives disability for her back pain. MENTAL STATUS EXAM: General Appearance: Patient appears to be stated age is alert, pleasant, and cooperative. Patient appears to have fair hygiene and grooming wearing hospital gown with fair eye contact. Behavior: Patient is calmly lying in bed without any agitated behavior. Speech: Patient's speech is fluent and nonpressured. Mood/Affect: Patient reports their mood is "feeling better.", affect is congruent and euthymic. Suicidality/Homicidality: Patient denies having any suicidal or homicidal ideation intent or plan. Perceptions: Patient denies any visual hallucinations and denies any auditory hallucinations Though content/process: There is no evidence of any delusional thought content and thought process is linear and goal-directed. Memory and concentration: AOX3, grossly intact for the purposes of this session. 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 PLAN: -Continue your medical management and evaluation for chest pain. -At this time patient DOES NOT meet criteria for inpatient psychiatric admission. Patient is not presenting with imminent risk of harm to self or others. She is not overtly manic or psychotic. -This provider spent approximately 20-30 minutes providing supportive psychotherapy and emotional support during this interview. -Would recommend the following medication changes/additions: Continue cymbalta 60 mg at bedtime for depression and neuropathic pain -Recommend outpatient psychotherapy referral -Psychiatry will sign off at this point, please contact with any questions. Vital Signs Temp 97.9 F 07/13/22 07:00 Pulse 77 07/13/22 07:00 Resp 17 07/13/22 07:00 BP 104/59 07/13/22 07:00 Pulse Ox 95 07/13/22 07:00 FiO2 Intake & Output 07/12/22 07/13/22 07/13/22 18:59 06:59 18:59 Intake Total 500 Balance 500 Weight 88.904 kg 90 kg Intake: Oral 500 Other: Voiding Method Toilet Toilet # Voids 2 Laboratory Results WBC 9.6 k/uL (3.8-10.6) 07/12/22 15:57 RBC 4.78 m/uL (3.80-5.40) 07/12/22 15:57 Hgb 14.4 gm/dL (11.4-16.0) 07/12/22 15:57 Hct 42.7 % (34.0-46.0) 07/12/22 15:57 MCV 89.3 fL (80.0-100.0) 07/12/22 15:57 MCH 30.0 pg (25.0-35.0) 07/12/22 15:57 MCHC 33.6 g/dL (31.0-37.0) 07/12/22 15:57 RDW 12.3 % (11.5-15.5) 07/12/22 15:57 Plt Count 219 k/uL (150-450) 07/12/22 15:57 MPV 7.5 07/12/22 15:57 Neutrophils % 62 % 07/12/22 15:57 Lymphocytes % 25 % 07/12/22 15:57 Monocytes % 7 % 07/12/22 15:57 Eosinophils % 3 % 07/12/22 15:57 Basophils % 1 % 07/12/22 15:57 Neutrophils # 6.0 k/uL (1.3-7.7) 07/12/22 15:57 Lymphocytes # 2.4 k/uL (1.0-4.8) 07/12/22 15:57 Monocytes # 0.7 k/uL (0-1.0) 07/12/22 15:57 Eosinophils # 0.3 k/uL (0-0.7) 07/12/22 15:57 Basophils # 0.1 k/uL (0-0.2) 07/12/22 15:57 PT 10.3 sec (9.0-12.0) 07/12/22 15:57 INR 1.0 (<1.2) 07/12/22 15:57 APTT 24.2 sec (22.0-30.0) 07/12/22 15:57 Sodium 143 mmol/L (137-145) 07/12/22 15:57 Potassium 3.9 mmol/L (3.5-5.1) 07/12/22 15:57 Chloride 110 mmol/L (98-107) H 07/12/22 15:57 Carbon Dioxide 25 mmol/L (22-30) 07/12/22 15:57 Anion Gap 8 mmol/L 07/12/22 15:57 BUN 14 mg/dL (7-17) 07/12/22 15:57 Creatinine 0.71 mg/dL (0.52-1.04) 07/12/22 15:57 Est GFR (CKD-EPI)AfAm >90 (>60 ml/min/1.73 sqM) 07/12/22 15:57 Est GFR (CKD-EPI)NonAf >90 (>60 ml/min/1.73 sqM) 07/12/22 15:57 Glucose 98 mg/dL (74-99) 07/12/22 15:57 Calcium 8.6 mg/dL (8.4-10.2) 07/12/22 15:57 Magnesium 2.1 mg/dL (1.6-2.3) 07/12/22 15:57 Total Bilirubin 0.6 mg/dL (0.2-1.3) 07/12/22 15:57 AST 84 U/L (14-36) H 07/12/22 15:57 ALT 74 U/L (4-34) H 07/12/22 15:57 Alkaline Phosphatase 90 U/L (38-126) 07/12/22 15:57 Troponin I <0.012 ng/mL (0.000-0.034) 07/12/22 20:35 NT-Pro-B Natriuret Pep 26 pg/mL 07/12/22 15:57 Total Protein 6.9 g/dL (6.3-8.2) 07/12/22 15:57 Albumin 4.0 g/dL (3.5-5.0) 07/12/22 15:57 Triglycerides 158.00 mg/dL (0.00-149.00) H 07/13/22 06:33 Cholesterol 190.00 mg/dL (0.00-200.00) 07/13/22 06:33 LDL Cholesterol, Calc 122.1 mg/dL (0.0-131.0) 07/13/22 06:33 VLDL Cholesterol, Calc 31.60 mg/dL (5.00-40.00) 07/13/22 06:33 HDL Cholesterol 36.30 mg/dL (40.00-60.00) L 07/13/22 06:33 Cholesterol/HDL Ratio 5.23 Ratio 07/13/22 06:33 Allergies Allergy/AdvReac Type Severity Reaction Status Date / Time citalopram [From Celexa] Allergy Rash/Hives Verified 07/12/22 17:16 gabapentin [From Neurontin] Allergy Rash/Hives Verified 07/12/22 17:16 quetiapine [From Seroquel] Allergy Rash/Hives Verified 07/12/22 17:16 Sulfa (Sulfonamide Allergy Rash/Hives Verified 07/12/22 17:16 Antibiotics) 07/13/22 13:26
[2022-07-13] MEDS: lisinopriL 10 MG TAB PO SCH (14:02)
[2022-07-13] MEDS: CYCLOBENZAPRINE 10 MG TAB PO SCH ×3 (14:02→21:34)
--- NOTE | 2022-07-13 17:22 | P.PN ---
Subjective Progress Note Date: 07/13/22 Patient stated that she still having episodes of chest pain. Her troponins were negative 3. Patient is scheduled for a stress test and echocardiogram today Objective - Vital Signs Vital signs: Vital Signs Temp 99.1 F 07/13/22 15:00 Pulse 99 07/13/22 15:00 Resp 16 07/13/22 15:00 BP 121/77 07/13/22 15:00 Pulse Ox 97 07/13/22 16:55 FiO2 Intake & Output 07/12/22 07/13/22 07/13/22 18:59 06:59 18:59 Intake Total 500 Balance 500 Weight 88.904 kg 90 kg Intake: Oral 500 Other: Voiding Method Toilet Toilet # Voids 2 1 - Exam General examination - Alert and Oriented 3 in NAD Heart - + S1S2 no murmurs Lungs - Clear to auscultation Abdomen soft NT ND +ve BS Extremities - No edema CATERING DIRECTOR - Moving all 4 extremities spontaneously Psych - Calm and cooperative - Labs CBC & Chem 7: 07/12/22 15:57 07/12/22 15:57 Labs: Abnormal Lab Results - Last 24 Hours (Table) 07/13/22 Range/Units 06:33 Triglycerides 158.00 H (0.00-149.00) mg/dL HDL Cholesterol 36.30 L (40.00-60.00) mg/dL Assessment and Plan Assessment: Atypical chest pain First troponin is negative and EKG without ischemic changes Trend troponin 2 Check echocardiogram Cardiology consult Hypertension Resume lisinopril Chronic back pain Resume pain meds and follow-up with pain management outpatient Anxiety and depression Resume Shankar Youssef psychiatry recommendations GERD Resume PPI CODE STATUS:full code DPOA: Patient would like her children to make decisions for her if she lacks capacity DVT prophylaxis: Lovenox Anticipated length of stay < than [address]: home A total of 50 minutes was spent on the care of this complex patient more than 50% of the time was spent in counseling and care coordination.
[2022-07-13] MEDS: ENOXAPARIN 40 MG/0.4 ML SYRINGE SQ SCH (17:37)
--- NOTE | 2022-07-13 17:43 | CA ---
Transthoracic Echo Report Name: Maria D Santana Age: 57 Gender: F : 1965 Exam Date: 07/13/2022 13:22 Exam Location: [place] [facility] Ht (in): 62 Wt (lb): 198 Ordering Physician: Kenna Lee Attending/Referring Phys: [id number], Jesus K 9 [employer] Officer Joselin Tomas RDCS Procedure CPT: Indications: LVF Cardiac Hx: Technical Quality: Fair Contrast 1: Total Dose (mL): Contrast 2: Total Dose (mL): MEASUREMENTS (Male / Female) Normal Values 2D ECHO LV Diastolic Diameter PLAX 3.2 cm 4.2 - 5.9 / 3.9 - 5.3 cm LV Systolic Diameter PLAX 2.2 cm IVS Diastolic Thickness 1.2 cm 0.6 - 1.0 / 0.6 - 0.9 cm LVPW Diastolic Thickness 1.1 cm 0.6 - 1.0 / 0.6 - 0.9 cm LV Relative Wall Thickness 0.7 LA Volume 25.5 cm??? 18 - 58 / 22 - 52 cm??? M-MODE Aortic Root Diameter MM 2.6 cm LA Systolic Diameter MM 2.8 cm LA Ao Ratio MM 1.1 AV Cusp Separation MM 1.7 cm DOPPLER AV Peak Velocity 87.0 cm/s AV Peak Gradient 3.0 mmHg LVOT Peak Velocity 63.0 cm/s LVOT Peak Gradient 1.6 mmHg MV Area PHT 3.7 cm??? Mitral E Point Velocity 46.5 cm/s Mitral A Point Velocity 55.5 cm/s Mitral E to A Ratio 0.8 MV Deceleration Time 206.0 ms TR Peak Velocity 185.2 cm/s TR Peak Gradient 13.7 mmHg Right Ventricular Systolic Press 18.7 mmHg FINDINGS Left Ventricle Mildly increased septal wall thickness. Mildly increased posterior wall thickness. Normal left ventricular systolic function with no obvious regional wall motion abnormalities. Left ventricular ejection fraction is estimated at 55 %. Right Ventricle Normal right ventricular size and function. Right ventricular systolic pressure within normal limits. Right Atrium Right atrium not well visualized. Left Atrium Normal left atrial size. Mitral Valve No mitral stenosis, regurgitation or prolapse. Aortic Valve No aortic valve stenosis or regurgitation. Tricuspid Valve Structurally normal tricuspid valve. Mild tricuspid regurgitation. Pulmonic Valve Trace pulmonic regurgitation. Pericardium No pericardial effusion. Aorta Normal size aortic root and proximal ascending aorta. CONCLUSIONS Normal left ventricular size and systolic function Previewed by: Dr. Mani Paris MD (Electronically Signed) Final Date: 13 July 2022 17:42
[2022-07-13] MEDS: DULoxetine HCL 60 MG CAPSULE.DR PO SCH (21:33)
[2022-07-14] MEDS: NITROGLYCERIN OINT 1 INCH/GM PACKET TOPICAL SCH ×2 (00:41→06:30)
[2022-07-14] MEDS: PANTOPRAZOLE 40 MG TABLET PO SCH (06:29)
[2022-07-14 07:49] VITALS: BP 116/73; PULSE 80; RESP 18; TEMP 97.7
[2022-07-14] MEDS: CYCLOBENZAPRINE 10 MG TAB PO SCH (08:23)
[2022-07-14] MEDS: ETODOLAC 400 MG TAB PO SCH (08:23)
[2022-07-14] MEDS: lisinopriL 10 MG TAB PO SCH (08:23)
[2022-07-14] MEDS: PREGABALIN 75 MG CAP PO SCH (08:23)
[2022-07-14] MEDS: ASPIRIN 325 MG TAB PO SCH (08:23)
--- NOTE | 2022-07-14 08:25 | CA ---
Stress Echo Report Maria D Santana Age: 57 Gender: F : 1965 Exam Date: 07/13/2022 13:28 Exam Location: [place] [facility] Ht (in): 62 Wt (lb): 198 Ordering Physician: Kenna Lee Referring Physician: RAIZA, Presentation Team Member: Darrel Delatorre Technologist Procedure CPT: Indication: CP ICD-9 Codes: Rhythm: Patient History: Cardiac Medications: SEE CHART Medications in past 24 hours: Contrast: Stress Results Protocol: Oleg Total dose(mL): Exercise Duration (min:sec): 3:[address] Depression (mm): Angina Score: Alberto Score: METS: 5.6 Resting HR: 90 Resting BP: 124 / 75 Peak HR: 148 Peak BP: 129 / 53 Max Predicted HR: 163 91 % Max Predicted HR Target HR: 139 Double Product: [id number] Stress Summary: BP Response: Reason for Termination: Dizziness,Target HR Cardiac Symptoms: DIZZINESS,FATIGUE ECG Analysis Resting ECG: Normal sinus rhythm normal axis normal intervals Stress ECG: Patient exercised on Oleg protocol for 4 minutes achieving 5 Mets 85% of predicted maximal heart rate without chest pain or diagnostic ST segment depression Arrhythmia: Echo Analysis Resting Echo: Normal left ventricular size wall motion systolic function Peak Echo Analysis: Normal hyperdynamic response of all the meds myocardium noted MEASUREMENTS (Male/Female) Normal Values CONCLUSIONS Limited exercise tolerance Negative stress test by EKG criteria Negative stress echo Dr. Mani Paris MD (Electronically Signed) Final Date: 14 July 2022 08:25
--- NOTE | 2022-07-14 09:34 | P.PN ---
Subjective Progress Note Date: 07/14/22 History of present illness: This is a 57-year-old female with no past cardiac history. She has a past men gia history of hypertension, gastroesophageal reflux disease and chronic lumbar back pain. She reports a stress test was done at [facility] 5-6 years ago was negative. Patient presented due to chest pain that took her breath away with radiation to the left arm along with numbness. She still has some pain and the left upper arm and left clavicle and shoulder area. Pain is been going on for 2 days. She denies any lightheadedness or dizziness, no fever or chills, no cough or sputum production. EKG is sinus rhythm with no acute ST changes Chest x-ray shows mild cardiomegaly without acute process. CBC unremarkable. Troponins negative 3. AST 84 and ALT 74, chloride 110 oth erwise CMP within normal limits 07/14 Patient denies having any chest pain or shortness of breath. Exercise stress test read revealed limited exercise tolerance but negative stress test by EKG criteria and negative stress echo. 2-D echocardiogram reveals normal left ventricular size and systolic function Physical examination: Gen: This is an obese 57-year-old female. She is resting in bed and appears to be comfortable and in no acute distress. VS: reviewed HEENT: Head is atraumatic, normocephalic. Pupils equal, round. Sclerae is anicteric. NECK: Supple. No JVD. LUNGS: Clear to auscultation. No wheezes or rhonchi. No intercostal retractions. HEART: Regular rate and rhythm. No murmur. Mild tenderness to the left upper chest region is improved ABDOMEN: Soft. No masses. No tenderness. EXTREMITIES: No pedal edema. No calf tenderness. NEUROLOGICAL: Patient is awake, alert and oriented x3. Assessment: Chest pain, acute coronary syndrome ruled out Hypertension Gastroesophageal reflux disease Chronic lumbar back pain Plan: Patient is cleared for discharge from cardiology. Thank you kindly for this consultation. Nurse practitioner note has been reviewed, I agree with documented findings and plan of care. Patient was seen and examined. Objective - Vital Signs Vital signs: Vital Signs Temp 97.9 F 07/14/22 02:16 Pulse 83 07/14/22 02:16 Resp 16 07/14/22 02:16 BP 108/68 07/14/22 02:16 Pulse Ox 94 L 07/14/22 02:16 FiO2 Intake & Output 07/13/22 07/14/22 07/14/22 18:59 06:59 18:59 Intake Total 118 Balance 118 Weight 90 kg Intake: Oral 118 Other: Voiding Method Toilet # Voids 1 1 - Labs CBC & Chem 7: 07/12/22 15:57 07/12/22 15:57 Labs: Abnormal Lab Results - Last 24 Hours (Table) 07/13/22 Range/Units 06:33 Triglycerides 158.00 H (0.00-149.00) mg/dL HDL Cholesterol 36.30 L (40.00-60.00) mg/dL
--- NOTE | 2022-07-14 11:56 | P.DS ---
Providers Date of admission: 07/12/22 16:48 Attending physician: Alexia Pringle DO Consults: 07/12/22 16:48 Consult Physician Urgent Consulting Provider: [facility] Consult Reason/Comments: Chest pain Do you want consulting provider notified?: Yes 07/13/22 02:45 Consult Physician Routine Consulting Provider: Psychiatry - [facility] Consult Reason/Comments: depression/anxiety Do you want consulting provider notified?: Yes, Notify in am Primary care physician: Darrel Vincent [facility] Course: Discharge Diagnosis: Atypical chest pain Hypertension Chronic back pain Anxiety GERD Hospital Course: Patient is a 57-year-old female with a past medical history of hypertension, anxiety, chronic back pain who presents to the ED with chest pain. Patient's troponins are negative 3. Patient's stress echo was negative. Patient's echocardiogram was unremarkable. Patient cleared for discharge by cardiology. At the time of discharge patient denied any chest pain. Patient seen and examined at bedside.[] Vital signs reviewed and stable. General: [non toxic], [no distress], [appears at stated age] Derm: [warm], [dry] Head: [atraumatic], [normocephalic], [symmetric] Eyes: [EOMI], [no lid lag], [anicteric sclera] Mouth: [no lip lesion], [mucus membranes moist] Cardiovascular: [S1S2 reg], [no murmur], [positive posterior tibial pulse bilateral], Lungs: [CTA bilateral], [no rhonchi, no rales] , [no accessory muscle use] Abdominal: [soft], [ nontender to palpation], [no guarding], [no appreciable organomegaly] Ext: [no gross muscle atrophy], [no edema], [no contractures] Neuro: [ CN II-XI grossly intact], [no focal neuro deficits] Psych: [Alert], [oriented], [appropriate affect] A total of [25] minutes of time were spent preparing this complex discharge summary . Patient Condition at Discharge: Good Plan - Discharge Summary New Discharge Prescriptions: New Aspirin 81 mg PO DAILY 30 Days #30 tab Continue Cyclobenzaprine [Flexeril] 10 mg PO TID Diclofenac Sodium Gel [Voltaren Gel] 2 - 3 gm TOPICAL QID PRN PRN Reason: Pain Pregabalin [Lyrica] 150 mg PO TID Omeprazole 20 mg PO DAILY lisinopriL [Prinivil] 10 mg PO DAILY Diclofenac Sodium [Voltaren] 75 mg PO BID DULoxetine HCL [Cymbalta] 60 mg PO HS Discharge Medication List DULoxetine HCL [Cymbalta] 60 mg PO HS 03/17/21 [History] Diclofenac Sodium [Voltaren] 75 mg PO BID 03/17/21 [History] Omeprazole 20 mg PO DAILY 03/17/21 [History] Pregabalin [Lyrica] 150 mg PO TID 03/17/21 [History] lisinopriL [Prinivil] 10 mg PO DAILY 03/17/21 [History] Cyclobenzaprine [Flexeril] 10 mg PO TID 12/06/21 [History] Diclofenac Sodium Gel [Voltaren Gel] 2 - 3 gm TOPICAL QID PRN 07/12/22 [History] Aspirin 81 mg PO DAILY 30 Days #30 tab 07/14/22 [Rx] Follow up Appointment(s)/Referral(s): Darrel Vincent DO [Primary Care Provider] - 1-2 days Mani Paris MD [STAFF PHYSICIAN] - 1 Week Discharge Disposition: HOME SELF-CARE
== END 2022-07-14 13:15 | disposition home or self-care (01) ==
LOC: EC 15:09 → 6NMEDSUR 16:48
PROVIDERS: ADMIT Internal Medicine; ATTEND Internal Medicine
DX: R07.89 Other chest pain (principal); F43.81 Prolonged grief disorder; I11.9 Hypertensive heart disease without heart failure; G89.29 Other chronic pain; M54.50 Low back pain, unspecified; R73.03 Prediabetes; K21.9 Gastro-esophageal reflux disease without esophagitis; G43.909 Migraine, unspecified, not intractable, without status migrainosus; M79.2 Neuralgia and neuritis, unspecified; L71.9 Rosacea, unspecified; M48.00 Spinal stenosis, site unspecified; M43.16 Spondylolisthesis, lumbar region; F32.A Depression, unspecified; F41.9 Anxiety disorder, unspecified; F40.240 Claustrophobia; Z79.1 Long term (current) use of non-steroidal anti-inflammatories (NSAID); Z79.899 Other long term (current) drug therapy; Z88.2 Allergy status to sulfonamides; Z88.8 Allergy status to other drugs, medicaments and biological substances; Z86.14 Personal history of Methicillin resistant Staphylococcus aureus infection; Z90.49 Acquired absence of other specified parts of digestive tract; Z98.891 History of uterine scar from previous surgery; Z98.890 Other specified postprocedural states; Z86.16 Personal history of COVID-19; Z80.1 Family history of malignant neoplasm of trachea, bronchus and lung; Z82.49 Family history of ischemic heart disease and other diseases of the circulatory system
CPT/HCPCS: 96372; 99285; 36415; 94760 ×2; 93005; 93306; 83880; 80061; 80053; 83735; 84484; 85025; 85610; 85730; 71046; G0378 ×3; C8930; J1650; 93351

== ENCOUNTER → 2022-07-20 | Outpatient (CLI) | payer OTHER ==
--- NOTE | 2022-07-21 19:00 | MM ---
Reason for Exam: Screening (asymptomatic). Last mammogram was performed 12 year(s) and 0 month(s) ago. Patient History: Menarche at age 12. First Full-Term at age 23. Postmenopausal. Patient used Hormonal Contraceptives for 1 year. Risk Values: Sapna 5 year model risk: 1.1%. NCI Lifetime model risk: 7.1%. Prior Study Comparison: 07/01/2010 Bilateral Screening Mammogram, [facility]. Tissue Density: The breast tissue is heterogeneously dense. This may lower the sensitivity of mammography. Findings: Analyzed By CAD. No priors available for comparison purposes. Small area of asymmetric density outer aspect of the left cc view at a middle depth may represent superimposition shadow. Further evaluation is recommended. Slight bilateral, symmetrical nipple retraction likely normal for the patient. This can be correlated clinically. Otherwise, no discrete abnormality seen. Overall Assessment: Incomplete: need additional imaging evaluation, BI-RAD 0 Management: Special View Mammogram of the left breast. Including spot 3-D CC, 3-D rolled medial, and 3-D ML views. Targeted left breast ultrasound if any persisting abnormality. [facility] will attempt to contact patient to return for supplemental views and ultrasound if indicated. Electronically signed and approved by: Tita Canchola M.D. Radiologist
== END | disposition home or self-care (01) ==
LOC: RADMAMWWP 14:12
PROVIDERS: ATTEND Family Medicine
DX: Z12.31 Encounter for screening mammogram for malignant neoplasm of breast (principal); Z78.0 Asymptomatic menopausal state
CPT/HCPCS: 77067

== ENCOUNTER → 2022-07-28 | Outpatient (CLI) | payer OTHER ==
--- NOTE | 2022-07-28 13:51 | MM ---
Reason for Exam: Additional evaluation requested from abnormal screening. Last screening mammogram was performed less than 1 month ago. Patient History: Menarche at age 12. First Full-Term at age 23. Postmenopausal. Patient used Hormonal Contraceptives for 1 year. Risk Values: Sapna 5 year model risk: 1.1%. NCI Lifetime model risk: 7.1%. Prior Study Comparison: 07/01/2010 Bilateral Screening Mammogram, [facility]. 07/20/2022 Bilateral MG screening mammo w CAD, [facility]. Tissue Density: Left: The breast tissue is heterogeneously dense. This may lower the sensitivity of mammography. Findings: Analyzed By CAD. Under compression no discrete spiculated or lobulated mass is evident. Medial lateral anterior unremarkable. No suspicious distortion. No suspicious groups of microcalcifications, spiculated or lobular masses, architectural distortion or other secondary signs of malignancy are mammographically apparent. Overall Assessment: Benign, BI-RAD 2 Management: Screening Mammogram of both breasts in 1 year. A negative mammogram report should not preclude additional follow up of suspicious palpable abnormalities. Patient should continue monthly self breast exam. A clinical breast exam by your physician is recommended on an annual basis and results should be correlated with mammographic findings. Electronically signed and approved by: Francisco Way D.O. Radiologis
== END | disposition home or self-care (01) ==
LOC: RADMAMWWP 13:17
PROVIDERS: ATTEND Family Medicine
DX: R92.8 Other abnormal and inconclusive findings on diagnostic imaging of breast (principal); Z78.0 Asymptomatic menopausal state
CPT/HCPCS: 77065

== ENCOUNTER 2022-08-19 08:16 | Day surgery (SDC) | payer MEDICARE, OTHER ==
[2022-08-16 15:13] VITALS: BMI 36.6
[2022-08-19] MEDS ORDERED: LACTATED RINGERS 1,000 ML IV ONE (08:18)
[2022-08-19 08:30] VITALS: TEMP 97
[2022-08-19 08:48] LABS: Glucose,Whole Blood 82 mg/dL (70-110)
[2022-08-19] MEDS ORDERED: MIDAZOLAM 2 MG/2 ML VIAL ONE (09:03)
[2022-08-19] MEDS ORDERED: ROPIVACAINE 5 MG/ML 20 ML AMPULE ONE (09:03)
[2022-08-19] MEDS ORDERED: methylPREDNISolone ACETATE 40 MG/ML 1 ML VIAL ONE (09:03)
[2022-08-19] MEDS ORDERED: fentaNYL (PF) 50 MCG/ML 2 ML AMP ONE (09:03)
--- NOTE | 2022-08-19 09:30 | P.PCN ---
Date of Procedure: 08/19/22 Procedure(s) Performed: PREOPERATIVE DIAGNOSIS: 1-Lumbar Spondylosis with Facet Arthropathy without myelopathy. 2- Lumber degenerative disc disease. POSTOPERATIVE DIAGNOSIS: 1- Lumbar Spondylosis with Facet Arthropathy without myelopathy. 2- Lumber degenerative disc disease. PROCEDURES : Bilateral Radiofrequency thermocoagulation, L3 , L4 , and L5 medial branch, with fluoroscopic guidance (fluoroscopy images available in the radiology department) ( to denervate the facet joint at bilateral L4-5 ,and L5-S1 levels ). ANESTHESIA: Monitored anesthesia care as per anesthesia department . EBL: Minimal PROCEDURE INDICATION: The patient with low back pain secondary to lumbar facet arthropathy who had more than 50% relief of her pain with previous diagnostic lumbar medial branch block with bupivacaine. PROCEDURE DESCRIPTION / TECHNIQUE: The patient was seen and identified in the preoperative area. Risks, benefits, complications, including but not limited to risk of infection ,bleeding , allergic reactions to the medications and no complete pain releife , and alternatives were discussed with the patient, the patient agreed to proceed with the procedure and signed the consent. IV was started. Vital signs remained stable throughout the procedure. Patient was taken to the OR and time out was completed. The patient was placed in the prone position on the procedure table. The lumber area was prepped and draped in the usual sterile fashion. . Vital signs were closely monitored during the procedure .IV sedation was used during the procedure to decrease patients anxiety. Using AP and then oblique fluoroscopy, the ``eye of the Maksim dog cor responding to the connection between the superior and transverse articular processes of right L3, L4, and L5 were identified, marked, and localized with 1% lidocaine. Subsequently, a 18 -he radiofrequency cannula with a 10- mm active tip was advanced guided by fluoroscopy to each of the``eyes of the Maksim dog at right L3, L4, and L5. Each site then underwent sensory testing at 50 Hz and 0 to 1 volt and motor testing at 2.5 Hz and 0 to 3 volt with local stimulation, but no radicular symptoms down the legs. Thereafter each sites underwent radiofrequency thermocoagulation at 80 degrees celsius for 90 seconds after injecting 0.5 ml of PF Ropivacaine 1ml, then after the thermocoagulation done , 1 ml of the block solution containing Depo-Medrol 20 mg and 3 ml of Ropivacaine 0.5% was injected at the right L3 , L4 , and L5 , levels after negative aspiration of CSF and blood and with no paresthesias. Cannulas were retracted while injecting lidocaine 1% until the needle is out. The same procedure was repeated at the level of Left L3, L4, and L5 levels. At the end of the procedure, the skin was cleansed and bandages were applied. COMPLICATIONS: No acute complications. DISPOSITION / PLANS: The patient was placed in a supine position and transferred to the recovery area in a stable condition for observation and was discharged from the recovery room after meeting discharge criteria. Home discharge instructions given to the patient by the staff. The patient was reexamined prior to discharge. The patient will schedule a follow up in the clinic in 2-4 weeks.
[2022-08-19] MEDS ORDERED: IV FLUID CONTINUATION 900 ML IV ONE (09:35)
[2022-08-19 09:37] VITALS: RESP 16
--- NOTE | 2022-08-19 09:41 | FL ---
Intraoperative/procedural fluoroscopic services were provided for bilateral lumbar radiofrequency. To gia fluoroscopy time is 12 seconds with a total of 10 submitted images to PACS. Please see the operat elizabeth note for further details.
[2022-08-19 09:50] VITALS: BP 107/73; PULSE 70
== END 2022-08-19 10:05 | disposition home or self-care (01) ==
LOC: ORPAIN 08:16
PROVIDERS: ATTEND Specialist
DX: M47.816 Spondylosis without myelopathy or radiculopathy, lumbar region (principal); M51.36 Other intervertebral disc degeneration, lumbar region; I10 Essential (primary) hypertension; E11.9 Type 2 diabetes mellitus without complications; K21.9 Gastro-esophageal reflux disease without esophagitis; J40 Bronchitis, not specified as acute or chronic; Z79.84 Long term (current) use of oral hypoglycemic drugs; Z79.899 Other long term (current) drug therapy; Z79.1 Long term (current) use of non-steroidal anti-inflammatories (NSAID); Z90.49 Acquired absence of other specified parts of digestive tract; Z90.89 Acquired absence of other organs; Z98.891 History of uterine scar from previous surgery; Z88.2 Allergy status to sulfonamides; Z88.8 Allergy status to other drugs, medicaments and biological substances; Z88.9 Allergy status to unspecified drugs, medicaments and biological substances; Z88.6 Allergy status to analgesic agent
CPT/HCPCS: 64635; 64636; J2250; J1030; J3010; J2795

== ENCOUNTER → 2022-11-01 | Outpatient (CLI) | payer MEDICARE ==
--- NOTE | 2022-11-01 13:35 | MR ---
MRI CERVICAL SPINE: CLINICAL HISTORY: No prior, history of DDD pain down neck through shoulders and arms worse on right c ervical disc degeneration. TECHNIQUE: Multiplanar, multisequence imaging of the cervical spine is performed without IV contrast. COMPARISON: Cervical spine x-ray September 14, 2022. FINDINGS: Sagittal images of the cervical spine show the craniocervical junction to appear within nor mal limits. The cervical and upper thoracic spinal cord is normal in course, caliber, and signal. Th ere is persistent subtle grade 1 anterolisthesis C4 on C5 and slight grade 1 retrolisthesis C5 on C6. The vertebral body and intravertebral disk heights are normal. The bone marrow signal intensity is within normal limits. Axial images show C2-C3 level to appear within normal limits. Axial images at C3-C4 level show uncovertebral facet degenerative change causing [id number] rig ht-sided neural foraminal narrowing. Axial images at C4-C5 level show broad-based posterior disc protrusion effacing the anterior thecal s ac and uncovertebral facet degenerative changes causing asymmetric moderate left-sided neural foramin al narrowing. Axial images at C5-C6 levels from broad-based posterior disc protrusion effacing anterior thecal sac and causing moderate bilateral neural foraminal narrowing. Axial images at C6-C7 level show tiny central disc protrusion mildly effacing anterior thecal sac. Pa tent bilateral neural foramina. Axial images at C7-T1 level appear within normal limits. IMPRESSION: Multilevel spondylolisthesis and degenerative change in the cervical spine as detailed ab nirav.
== END | disposition home or self-care (01) ==
LOC: RADMRIMAIN 12:22
PROVIDERS: ATTEND Physician Assistant Medical
DX: M50.321 Other cervical disc degeneration at C4-C5 level (principal); M47.812 Spondylosis without myelopathy or radiculopathy, cervical region; M43.12 Spondylolisthesis, cervical region
CPT/HCPCS: 72141

== ENCOUNTER → 2022-11-10 | Outpatient (CLI) | payer MEDICARE, OTHER ==
[2022-11-10 11:27] VITALS: BP 115/74; PULSE 68; RESP 16; TEMP 98.4
--- NOTE | 2022-11-10 14:47 | P.PAINPG ---
Objective - Vital Signs Vital signs: Intake & Output 11/09/22 11/10/22 11/10/22 18:59 06:59 18:59 Weight 90.718 kg PQRS Measure Charge Sheet Comment: A 57 yr old female with a history of severe and chronic LBP secondary to lumbar DDD and spondylosis with facet arthropathy without myelopathy presents today for MRI cervical spine results. Pain level is provoked at 8 /10 in intensity, constant, localized in the lumbar spine, sharp in character w shooting towards the RLE. Pain is provoked by any activity. Pain is alleviated with PT in Sep 2022 which provoked pain, massage therapy without relief, heat, ice, repositioning, laying supine and rest. Interventional pain procedures completed include BL RFA L3-L5, BL SI injections x 3 (last November 2021) Patient is currently on Flexeril, Lyrica, Cymbalta, Voltaren gel Patient denies any side effects of the medication(s), denies excessive drowsiness or sleepiness, denies suicidal ideation and reports that the current pain medication is helping to control the pain and improve activities of daily living. Patient denies any motor or sensory deficits. Patient denies any fever or night sweats, denies any change in the bowel movements or urination. Physical Examination: -Constitutional: Cooperative. Not in acute distress . - Neurologic: Cranial nerve II to XII intact. No focal neurological deficits. - Psychatric: Alert & oriented x 3. Matching mood & appropriate affect. Judgment and insight intact. - Musculoskeletal: Cervical spine: Muscle bulk/ tone/ strength in the bilateral upper extremities normal Vertebral body tenderness to palpation over C6 Spurling test positive Distraction test positive Facet loading test positive TTP Thoracic spine Muscle bulk / tone/ strength in the bilateral paraspinal muscles normal Vertebral body tender to palpation over Facet loading test positive TTP Lumbar spine: Motor bulk/ tone/ strength lower extremities , thigh and legs : 5/5 Deep tendon reflexes : Normal Knee Jerk. Normal Ankle Jerk . Vertebral body tenderness to palpation over Lumbar Facet Loading Test positive Straight Leg Raise: positive at 30 degrees right side/ left side Gaenslen's Test positive Sacral spine : Severe tenderness over the Sacroiliac joint: right side / left side Range of motion: Flexion of the lumbar spine <60 degrees Range of motion: Extension of the lumbar spine <20 degrees Gaenslen's Test positive R / L Denia test: positive right side / left side Thigh Thrust Test positive R / L BL Sacral Thrust Test positive R/ L Imaging: MRI without contrast of the cervical spine from 11/01/22 reviewed Assessment and plan: Chronic LBP secondary to DDD, spondylosis with facet arthropathy without myelopathy, BL Sacroiliitis Recommendation of BL SI injection. May need a series of injections for optimal pain relief. Risks, benefits of procedure discussed and pt verbalized understanding. Admits to anticoagulant use or medical history of diabetes. Protocol for discontinuation/ continuation of medications temo procedure discussed. All questions answered. I have spent less than 30 minutes on patient care today. Dr Collins was available by phone for the evaluation of this patient. The time was used to review the medical records including relevant urine studies and Prescription history (MAPs), review of the available imaging, evaluation and examination of the patient, coordination of care with the medical staff and if applicable referring physicians, as well as creation of the medical record PQRS Narrative: Smoking Status Never smoker Hx Alcohol Use (MH) No Home Medications: Ambulatory Orders DULoxetine HCL [Cymbalta] 60 mg PO HS 03/17/21 Omeprazole 20 mg PO DAILY 03/17/21 Pregabalin [Lyrica] 150 mg PO TID 03/17/21 lisinopriL [Prinivil] 10 mg PO DAILY 03/17/21 Cyclobenzaprine [Flexeril] 10 mg PO TID 12/06/21 Aspirin 81 mg PO DAILY 30 Days #30 tab 07/14/22 Diclofenac Sodium Gel [Voltaren Gel] 2 - 3 gm TOPICAL QID PRN 30 Days #1 each 09/14/22 Controlled Substance Measures - Controlled Substance Measures Is patient prescribed a controlled substance at discharge?: No
== END ==
LOC: PNWHC3 10:55
PROVIDERS: ATTEND Specialist
DX: M51.36 Other intervertebral disc degeneration, lumbar region (principal); M47.816 Spondylosis without myelopathy or radiculopathy, lumbar region; G89.29 Other chronic pain; Z79.82 Long term (current) use of aspirin; Z88.1 Allergy status to other antibiotic agents; Z88.8 Allergy status to other drugs, medicaments and biological substances; Z88.2 Allergy status to sulfonamides
CPT/HCPCS: 99211

== ENCOUNTER 2022-12-08 09:20 | Day surgery (SDC) | payer MEDICARE, OTHER ==
[2022-12-06 16:01] VITALS: BMI 36.6
[2022-12-08 10:18] VITALS: RESP 16; TEMP 98.4
[2022-12-08] MEDS ORDERED: LIDOCAINE 1% (10MG/ML) FOR IV START INTRADERMA ONE (10:25)
[2022-12-08] MEDS ORDERED: LACTATED RINGERS 1,000 ML IV ONE (10:25)
[2022-12-08 10:30] LABS: Glucose,Whole Blood 91 mg/dL (70-110)
[2022-12-08] MEDS ORDERED: fentaNYL (PF) 50 MCG/ML 2 ML AMP ONE (11:00)
[2022-12-08] MEDS ORDERED: MIDAZOLAM 2 MG/2 ML VIAL ONE (11:00)
[2022-12-08] MEDS ORDERED: TRIAMCINOLONE ACETONIDE 40 MG/ML 1 ML VIAL ONE (11:00)
[2022-12-08] MEDS ORDERED: IOPAMIDOL M200 10 ML VIAL ONE (11:00)
--- NOTE | 2022-12-08 11:08 | P.PCN ---
Date of Procedure: 12/08/22 Description of Procedure: PREOPERATIVE DIAGNOSIS: Sacroiliac joint dysfunction POSTOPERATIVE DIAGNOSIS: Sacroiliac joint dysfunction. PROCEDURES: 1. Bilateral Sacroiliac joint steroid injection 2. Sacroiliac joint arthrogram. SURGEON: Gwyn Moya ANESTHESIA: Local and IV sedation : Versed, and 100 g of fentanyl. Sedation supervision start time : 1100 sedation Supervision end time: 1105 EBL: None. Specimen removed: None Fluoroscopic image: saved to electronic medical records. PROCEDURE INDICATIONS: This patient with a history of chronic low back pain, and sacroiliac joint dysfunction. Patient tried conservative therapy. Came here for intervention management. PROCEDURE DESCRIPTION: The patient was seen and identified in the preoperative area. Risks, benefits, complications, and alternatives were discussed with the patient. The patient agreed to proceed with the procedure and signed the consent. IV was started, and vital signs were stable. Patient was taken to the OR and time out was completed. The patient was placed in the prone position on procedure table and a pillow was placed under the abdomen to reduce lumbar lordosis. The lumbosacral area was prepped and draped in the usual sterile fashion. Critical pause was taken. Vital signs were closely monitored during the procedure. For the right side, the fluoroscopic camera was placed in left oblique view and right SI joint lower pole was identified. Skin entry point was infiltrated with 1% lidocaine and 22-gauge 3.5 inch spinal needle was introduced into the inferior one-third of SI joint and after penetrating into the joint arthrogram was done. 0.5 ml of [id number] contrast was injected after negative aspiration for blood, and air and negative for paresthesia. Good spread of the contrast into the SI joint has been seen. Then again after negative aspiration of spinal fluid and blood and negative for neurological symptoms, 3 mL of a solution containing total 2.5 mL of 1% preservative-free lidocaine mixed with 20 mg of Kenalog was injected. Needle was withdrawn intact. The entire procedure was repeated on the left side as above. Needle was withdrawn intact. Skin was cleansed, and bandages were applied. COMPLICATIONS: None. DISPOSITION / PLANS: The patient was placed in a supine position and transferred to the recovery area in a stable condition for observation and was discharged from the recovery room after meeting discharge criteria. Home discharge instructions given to the patient by the staff. The patient was reexamined prior to discharge. The patient will schedule for follow-up visit with the pain clinic in 4 weeks duration.
[2022-12-08] MEDS ORDERED: IV FLUID CONTINUATION 1,000 ML IV ONE (11:14)
[2022-12-08] MEDS ORDERED: LACTATED RINGERS 1,000 ML IV SCH (11:15)
[2022-12-08 11:32] VITALS: BP 130/85; PULSE 94
--- NOTE | 2022-12-08 15:47 | FL ---
EXAMINATION TYPE: FL guided pain mgmt statistic DATE OF EXAM: 12/08/2022 FLUOROSCOPY Fluoroscopy time of 2 seconds was used during bilateral SI joint injections. 2 image/s document/s th e procedure. DOSE AREA PRODUCT (DAP) UGY*M,MGY*CM: 0.009
== END 2022-12-08 12:09 | disposition home or self-care (01) ==
LOC: ORPAIN 09:20
DX: M53.3 Sacrococcygeal disorders, not elsewhere classified (principal); G89.29 Other chronic pain; K21.9 Gastro-esophageal reflux disease without esophagitis; M19.90 Unspecified osteoarthritis, unspecified site; E11.9 Type 2 diabetes mellitus without complications; Z90.49 Acquired absence of other specified parts of digestive tract; Z98.891 History of uterine scar from previous surgery; Z79.82 Long term (current) use of aspirin; Z79.899 Other long term (current) drug therapy; Z88.2 Allergy status to sulfonamides
CPT/HCPCS: J2250; J3301; J3010; Q9966; G0260

== ENCOUNTER → 2022-12-28 | Outpatient (CLI) | payer MEDICARE, OTHER ==
[2022-12-28 12:33] VITALS: BP 118/82; PULSE 103; RESP 18
--- NOTE | 2022-12-28 14:48 | P.PAINPG ---
PQRS Measure Charge Sheet Comment: A 57 yr old female with a history of severe and chronic LBP secondary to lumbar DDD and spondylosis with facet arthropathy without myelopathy presents today for evaluation s/p BL SI injection. Pt states she experienced 80 % pain relief x 3 wks s/p procedure. Pain level is provoked at 6 /10 in intensity, con stant, localized in the lower cervical spine, dull in character w shooting towards the BL shoulders, L> R. Pain is provoked by lifting, hyperextension. Pain is alleviated with medications, topicals, injections in the past, heat, PT x 6 wks which ended in September 2022, use the cane for inflammatory assistance, massage therapy which provided no relief, repositioning and rest. Interventional pain procedures completed include BL SI injection Patient is currently on Lyrica, Cymbalta, Flexeril, Voltaren gel Patient denies any side effects of the medication(s), denies excessive drowsiness or sleepiness, denies suicidal ideation and reports that the current pain medication is helping to control the pain and improve activities of daily living. Patient denies any motor or sensory deficits. Patient denies any fever or night sweats, denies any change in the bowel movements or urination. Physical Examination: -Constitutional: Cooperative. Not in acute distress . - Neurologic: Cranial nerve II to XII intact. No focal neurological deficits. - Psychatric: Alert & oriented x 3. Matching mood & appropriate affect. Judgment and insight intact. - Musculoskeletal: Cervical spine: Muscle bulk/ tone/ strength in the bilateral upper extremities normal Vertebral body tenderness to palpation over C6 Spurling test positive over C6, L> R Distraction test positive Facet loading test positive TTP Thoracic spine Muscle bulk / tone/ strength in the bilateral paraspinal muscles normal Vertebral body tender to palpation over Facet loading test positive TTP Lumbar spine: Motor bulk/ tone/ strength lower extremities , thigh and legs : 5/5 Deep tendon reflexes : Normal Knee Jerk. Normal Ankle Jerk . Vertebral body tenderness to palpation over Espinoza Test positive Lumbar Facet Loading Test positive Straight Leg Raise: positive at 30 degrees right side/ left side Gaenslen's Test positive Sacral spine : Severe tenderness over the Sacroiliac joint: right side / left side Range of motion: Flexion of the lumbar spine <60 degrees Range of motion: Extension of the lumbar spine <20 degrees Gaenslen's Test positive right side / left side Denia test: positive right side / left side Thigh Thrust Test positive right side / left side Sacral Thrust Test positive right side / left side Imaging: MRI noncontrast of the cervical spine from 11/01/22 reviewed Assessment and plan: Chronic neck pain secondary to cervical DDD, spondylosis with facet arthropathy without myelopathy Recommendation of UGO C6-7. May need a series of injections for optimal pain relief. Risks, benefits of procedure discussed and pt verbalized understanding. Admits to anticoagulant use or medical history of diabetes. Protocol for discontinuation/ continuation of medications temo procedure discussed. Minimal anesthesia provided, if clinically indicated, consisting of Versed and Fentanyl. All questions answered. I have spent less than 30 minutes on patient care today. Dr Collins was available by phone for the evaluation of this patient. The time was used to review the medical records including relevant urine studies and Prescription history (MAPs), review of the available imaging, evaluation and examination of the patient, coordination of care with the medical staff and if applicable referring physicians, as well as creation of the medical record PQRS Narrative: Smoking Status Never smoker Hx Alcohol Use (MH) No Home Medications: Ambulatory Orders DULoxetine HCL [Cymbalta] 60 mg PO HS 03/17/21 Omeprazole 20 mg PO DAILY 03/17/21 Pregabalin [Lyrica] 150 mg PO TID 03/17/21 lisinopriL [Prinivil] 10 mg PO DAILY 03/17/21 Cyclobenzaprine [Flexeril] 10 mg PO TID 12/06/21 Aspirin 81 mg PO DAILY 30 Days #30 tab 07/14/22 Diclofenac Sodium Gel [Voltaren Gel] 2 - 3 gm TOPICAL QID PRN 30 Days #1 each 09/14/22 Diclofenac Sodium [Voltaren] 75 mg PO BID 12/06/22 Controlled Substance Measures - Controlled Substance Measures Is patient prescribed a controlled substance at discharge?: No
== END ==
LOC: PNWHC3 11:05
PROVIDERS: ATTEND Specialist
DX: M50.322 Other cervical disc degeneration at C5-C6 level (principal); M47.812 Spondylosis without myelopathy or radiculopathy, cervical region; G89.29 Other chronic pain; Z88.2 Allergy status to sulfonamides; Z88.6 Allergy status to analgesic agent; Z88.8 Allergy status to other drugs, medicaments and biological substances
CPT/HCPCS: 99211

== ENCOUNTER → 2023-01-23 | Outpatient (CLI) | payer MEDICARE, OTHER ==
--- NOTE | 2023-01-23 16:10 | MM ---
Reason for Exam: Clinical finding. Last screening mammogram was performed 6 month(s) ago. Indicated Problems: Pain of the left side (Global) for 1 Week(s) : feels like heart attack or muscle pain. Patient History: Menarche at age 12. First Full-Term at age 23. Postmenopausal. Patient used Hormonal Contraceptives for 1 year. Risk Values: Sapna 5 year model risk: 1.2%. NCI Lifetime model risk: 6.9%. Prior Study Comparison: 07/01/2010 Bilateral Screening Mammogram, [facility]. 07/20/2022 Bilateral MG screening mammo w CAD, [facility]. 07/28/2022 Left MG work up mamm w CAD , [facility]. Tissue Density: Left: The breast tissue is heterogeneously dense. This may lower the sensitivity of mammography. Findings: Analyzed By CAD. Pattern appears stable. A marker is at the 12:00 posterior position left breast at the area of the patient's reported pain. No underlying mammographic abnormality is evident. Additional evaluation with ultrasound is recommended. No suspicious groups of microcalcifications, spiculated or lobular masses, architectural distortion or other secondary signs of malignancy are mammographically apparent. Overall Assessment: Incomplete: need additional imaging evaluation, BI-RAD 0 Management: Diagnostic Breast Ultrasound of the left breast. A negative mammogram report should not preclude additional follow up of suspicious palpable abnormalities. Patient should continue monthly self breast exam. A clinical breast exam by your physician is recommended on an annual basis and results should be correlated with mammographic findings. Electronically signed and approved by: Francisco Way D.O. Radiologis
--- NOTE | 2023-01-23 16:25 | USB ---
Reason for Exam: Clinical finding. Patient History: Menarche at age 12. First Full-Term at age 23. Postmenopausal. Patient used Hormonal Contraceptives for 1 year. Risk Values: Sapna 5 year model risk: 1.2%. NCI Lifetime model risk: 6.9%. Prior Study Comparison: 07/01/2010 Bilateral Screening Mammogram, [facility]. 07/20/2022 Bilateral MG screening mammo w CAD, [facility]. 07/28/2022 Left MG work up mamm w CAD LT, [facility]. Findings: The upper section of the breast of the left breast and the axilla of the left breast were scanned. No solid or cystic masses are identified. No discrete abnormality at the location of the patient's pain is identified. Note is made of a large benign-appearing left axillary lymph node. No thickened cortex is evident. Overall Assessment: Benign, BI-RAD 2 Management: Screening Mammogram of both breasts in 6 months. A clinical breast exam by your physician is recommended on an annual basis and results should be correlated with mammographic findings. This exam should not preclude additional follow-up of suspicious palpable abnormalities. Results were given to the patient verbally at the time of exam. Electronically signed and approved by: Francisco Way D.O. Radiologis
== END | disposition home or self-care (01) ==
LOC: RADMAMWWP 14:57
PROVIDERS: ATTEND Family Medicine
DX: N64.4 Mastodynia (principal); Z78.0 Asymptomatic menopausal state
CPT/HCPCS: 77065; 76642; G0279; 77061

== ENCOUNTER 2023-01-26 09:11 | Day surgery (SDC) | payer MEDICARE, OTHER ==
[~2023-01-26 09:11] MED LIST changes: -LIDOCAINE 1% (10MG/ML) FOR IV START INTRADERMA PRN
[2023-01-26 09:53] VITALS: RESP 16; TEMP 97.3
[2023-01-26 10:15] LABS: Glucose,Whole Blood 123 mg/dL (70-110)
[2023-01-26] MEDS ORDERED: DEXAMETHASONE SOD PHOSPHATE 10 MG/ML 1 ML VIAL ONE (10:22)
[2023-01-26] MEDS ORDERED: IOPAMIDOL M200 10 ML VIAL ONE (10:22)
--- NOTE | 2023-01-26 10:27 | P.PCN ---
Date of Procedure: 01/26/23 Procedure(s) Performed: PROCEDURE 1. Cervical epidural steroid injection under fluoroscopic guidance, C6-7 (fluoroscopy images available in the radiology department ) 2. Cervical epidurogram. PREOPERATIVE DIAGNOSIS: 1- Cervical Degenerative Disc Diseases 2- Cervical spinal stenosis 3-cervical spondylosis with cervical Facet arthropathy without myelopathy POSTOPERATIVE DIAGNOSIS: : 1- Cervical Degenerative Disc Diseases , 2- Cervical spinal stenosis. 3-,cervical spondylosis with cervical Facet arthropathy without myelopathy ANESTHESIA: Local anesthesia with lidocaine 1 % 3 ml only EBL 0 PROCEDURE INDICATION: The patient with neck pain and radiculitis unresponsive to conservative treatment consents for procedure. PROCEDURE DESCRIPTION / TECHNIQUE: The patient was seen and identified in the preoperative area. Risks, benefits, complications, including but not limited to infections ,bleeding , allergic reactions to the medications ,and not complete pain releife, and alternatives were discussed with the patient, the patient agreed to proceed with the procedure and signed the consent. Patient was taken to the OR and time out was completed. The patient was placed in the prone position on the procedure table. A pillow was placed under the patients chest to increase the cervical interlaminar space. The cervical area was prepped and draped in the usual sterile fashion. Vital signs were closely monitored during the procedure. Using anterior-posterior fluoroscopy, the C6-7 interlaminar space was identified and the skin over this site was marked and then infiltrated with 1% lidocaine subcutaneously. Subsequently, a 20-gauge 3-1/2-inch Tuohy epidural needle was inserted and advanced toward the epidural space by means of the ``hanging-drop technique and guided by AP and lateral fluoroscopy. The correct needle position in the epidural space was verified with the injection of 2 mL of the water soluble contrast dye [id number]-200 and observing an excellent epidurogram with the epidural spread of the dye, after negative aspiration for blood and CSF and in t he absence of paresthesias. then, mixture containing 20 mg Dexamethasone and 2 ml of preservative-free normal saline injected and a washout of epidurogram was seen. Needle was withdrawn intact, skin was cleansed, and bandages were applied. Complications= none. Disposition= patient was placed in supine position and transferred to the recovery room area in stable condition and there was no evidence of upper or lower extremity motor or sensory deficit after the procedure patient was discharged from recovery room after discharge criteria met and home discharge instructions was given by the staff and patient will follow with the pain clinic in 2-4 weeks
--- NOTE | 2023-01-26 10:37 | FL ---
Intraoperative/procedural fluoroscopic services were provided. Total fluoroscopy time is 1.8 seconds with a total of 1 submitted images to PACS. Please see the operative/procedural note for further deta ils. DAP: [id number] mGym2
[2023-01-26 10:49] VITALS: BP 97/67; PULSE 96
== END 2023-01-26 10:52 | disposition home or self-care (01) ==
LOC: ORPAIN 09:11
PROVIDERS: ATTEND Specialist
DX: M50.123 Cervical disc disorder at C6-C7 level with radiculopathy (principal); M48.02 Spinal stenosis, cervical region; M47.22 Other spondylosis with radiculopathy, cervical region; Z79.82 Long term (current) use of aspirin
CPT/HCPCS: 62321; J1100; Q9966

== ENCOUNTER → 2023-04-14 | Outpatient (CLI) | payer MEDICARE, OTHER ==
--- NOTE | 2023-04-14 09:41 | MR ---
EXAMINATION TYPE: MR lumbar spine wo con DATE OF EXAM: 04/14/2023 8:12 AM CLINICAL INDICATION:Female, 58 years old with history of M43.16 SPONDYLOLISTHESIS, LUMBAR REGION; PHH , Low back pain into nabil lower extremity COMPARISON: None TECHNIQUE: Multi planar, multi sequence imaging was performed utilizing: T1-weighted, T2-weighted, a nd turbo inversion recovery imaging of the lumbar spine. IV Contrast: None. FINDINGS: Alignment: The lumbar vertebral bodies have preserved heights with grade 1 anterolisthesis of L4 on L 5. Cord: The conus medullaris and the distal spinal cord appear unremarkable with regards to their signa l intensity and morphology. Bones/Discs: Multilevel disc degeneration changes with osteophyte formation, disc space narrowing, Sc hmorl's nodes, and facet joint arthropathy. No abnormal inversion recovery signal to suggest bony gisel ma. Intervertebral disc signal is maintained. T12-L1: No evidence of significant spinal canal stenosis or neural foraminal stenosis. L1-L2: No evidence of significant spinal canal stenosis or neural foraminal stenosis. L2-L3: No evidence of significant spinal canal stenosis or neural foraminal stenosis. L3-L4: Disc bulge and facet joint arthropathy result in mild spinal canal and mild bilateral neural f oraminal stenosis. L4-L5: Disc uncovering from grade 1 anterolisthesis and facet joint arthropathy with mild spinal gen l stenosis and mild bilateral neural foraminal stenosis. Small left facet joint effusion. Mild invers ion recovery signal around the left facet joint. L5-S1: Disc bulge and facet joint arthropathy result in mild spinal canal and mild bilateral neural f oraminal stenosis. No significant spinal canal or neural foraminal stenosis in the remainder of the visualized levels. Other findings: None. IMPRESSION: 1. No definitive evidence of disc herniation or significant spinal canal stenosis. 2. Grade 1 anterolisthesis of L4 and L5 with disc degeneration with associated osteoarthritic change s. There is small left facet joint fusion at L4-L5 and mild reactive edema.
== END | disposition home or self-care (01) ==
LOC: RADMRIMAIN 07:24
PROVIDERS: ATTEND Orthopaedic Surgery Orthopaedic Surgery of the Spine
DX: M43.16 Spondylolisthesis, lumbar region (principal); M48.062 Spinal stenosis, lumbar region with neurogenic claudication; E66.9 Obesity, unspecified; M47.26 Other spondylosis with radiculopathy, lumbar region; M51.16 Intervertebral disc disorders with radiculopathy, lumbar region; M43.26 Fusion of spine, lumbar region
CPT/HCPCS: 72148

== ENCOUNTER → 2023-05-09 | Outpatient (CLI) | payer MEDICARE, OTHER | END | disposition home or self-care (01) | LOC: LABWHC1 08:54 | PROVIDERS: ATTEND Psychiatry & Neurology Neurology | DX: R53.1 Weakness (principal) | CPT/HCPCS: 36415; 82550 ==